=== PATIENT | female | born 1990 | race Caucasian/White ===

== ENCOUNTER 2019-03-18 17:23 | Outpatient (CLI) | payer BC ==
[2019-03-18] MEDS ORDERED: LACTATED RINGERS 1,000 ML IV SCH (18:30)
[2019-03-18 18:47] VITALS: BP 122/80; PULSE 107; RESP 18; TEMP 98.5
--- NOTE | 2019-04-05 16:45 | P.MSEPDOC ---
Presenting Problems - Arrival Data Date of Arrival on Unit: 03/18/19 Time of Arrival on Unit: 17:10 Mode of Transport: Ambulatory - Complaint OB-Reason for Admission/Chief Complaint: Decreased Movement Medical History - Information : 1 Para: 0 Term: 0 : 0 Abortions: Spontaneous or Elective: 0 Number of Living Children: 0 - Gestational Age Gestational Age by FER (wks/days): 32 Weeks and 1 Days Review of Systems - Review of Systems Constitutional: No problems Breast: No problems ENT: No problems Cardiovascular: No problems Respiratory: No problems Gastrointestinal: No problems Genitourinary: No problems Musculoskeletal: No problems Neurological: No problems Skin: No problems Vital Signs - Temperature Temperature: 98.5 F Temperature Source: Oral - Pulse Right Brachial Pulse Rate: 107 Pulse Assessment Method: Automatic Cuff - Respirations Respiratory Rate: 18 Oxygen Delivery Method: Room Air O2 Sat by Pulse Oximetry: 97 - Blood Pressure Right Arm Blood Pressure: 122/80 Blood Pressure Mean: 94 Blood Pressure Source: Automatic Cuff Medical Screen Scoring (Pre) - Cervical Exam Dilation: 0 cm = 0 Effacement: Exam Deferred Membranes: Intact - Uterine Contractions Frequency: < 36 weeks = 6 Duration: N/A Intensity: N/A - Maternal Vital Signs Maternal Temperature: N/A Maternal Blood Pressure: N/A Signs of Preeclampsia: N/A Maternal Respirations: N/A - Maternal Trauma Maternal Trauma: N/A - Assessment - Baby A Baseline FHR: 145 Heart Rate - NICHD Category: Category I (Normal) = 0 NST: Reactive Position: N/A Station: N/A - Total Score - Baby A Total Score - Baby A: 6 - Level of Risk - Baby A Level of Risk - Baby A: Medium (6-9) - Pain Assessment Pain Location and Character: Lower, Sacrum Pain Scale Used: Numeric (1 - 10) Pain Intensity: 2 Pain Description: *Acute Pain Frequency: Rarely Pain Behavior: Vocalization Pain Aggravating Factors: Position Non-Pharmacological Interventions: Darkened Room, Position/Reposition Physician Notification (Pre) - Physician Notified Physician Notified Date: 03/18/19 Physician Notified Time: 18:25 Physician/Practitioner Notifed:: chas Spoke With: chas New Order Received: Yes - Notification Comment Comment: start iv Medical Screen Scoring (Post) - Cervical Exam Dilation: 0 cm = 0 - Uterine Contractions Frequency: > 5 minutes apart = 1 Duration: > 40 seconds = 2 - Maternal Vital Signs Maternal Temperature: N/A Maternal Blood Pressure: N/A Signs of Preeclampsia: N/A Maternal Respirations: N/A - Pain Assessment Pain Intensity: 0 Pain Behavior: None Exhibited - Assessment - Baby A Heart Rate - NICHD Category: Category I (Normal) = 0 NST: Reactive - Total Score Total Score - Baby A: 3 - Post Treatment Level of Risk Post Treatment Level of Risk - Baby A: Low (0-5) Physician Notification (Post) - Physician Notified Physician Notified Date: 03/18/19 Physician Notified Time: 19:47 Physician/Practitioner Notified:: Chas New Order Received: Yes (discharge home) Disposition - Disposition OB Disposition: Discharge to home, Written follow up instructions reviewed Discharge Date: 03/18/19 Discharge Time: 20:05 I agree with the RN Medical Screening Exam: Yes Risk & Benefit of care provided described in d/c instruction: Yes Diagnosis: DECREASED MOVEMENTS, THIRD TRIMESTER, FETUS 1
== END 2019-03-18 20:05 | disposition home or self-care (01) ==
LOC: FBPOP 17:23
PROVIDERS: ATTEND Obstetrics & Gynecology
DX: O36.8130 Decreased fetal movements, third trimester, not applicable or unspecified (principal); Z3A.32 32 weeks gestation of pregnancy
CPT/HCPCS: 59025; 96360; 99214

== ENCOUNTER 2019-05-12 16:14 | Inpatient (IN) | payer BC, OTHER ==
[2019-05-16] MEDS ORDERED: OXYTOCIN 10 UNIT/ML 1 ML VIAL IM PRN (06:28)
[2019-05-16] MEDS ORDERED: TERBUTALINE 1 MG/ML VIAL SQ PRN (06:28)
[2019-05-16] MEDS ORDERED: METHYLERGONOVINE 0.2 MG/ML 1 ML AMP IM PRN (06:28)
[2019-05-16] MEDS ORDERED: CARBOPROST TROMETHAMINE 250 MCG/ML 1 ML AMP IM PRN (06:28)
[2019-05-16] MEDS ORDERED: LIDOCAINE 0.5% (PF) 5 MG/ML (50 ML SDV) SQ PRN (06:28)
[2019-05-16 06:37] LABS: Basophils % (A) 0 %; Eosinophils # (A) 0.1 k/uL (0-0.7); Eosinophils % (A) 1 %; HCT 41.5 % (34.0-46.0); HGB 13.3 gm/dL (11.4-16.0); Lymphocytes # (A) 1.9 k/uL (1.0-4.8); Lymphocytes % (A) 15 %; MCH 29.2 pg (25.0-35.0); MCHC 31.9 g/dL (31.0-37.0); MCV 91.4 fL (80.0-100.0); Mean Platelet Volume 7.9; Monocytes # (A) 0.5 k/uL (0-1.0); Monocytes % (A) 4 %; Neutrophils # (A) 9.9 k/uL (1.3-7.7); Neutrophils % (A) 78 %; Platelet Count 371 k/uL (150-450); RBC 4.54 m/uL (3.80-5.40); RDW 13.7 % (11.5-15.5); WBC 12.7 k/uL (3.8-10.6)
[2019-05-16 06:38] VITALS: BMI 38.1
[2019-05-16] MEDS: LACTATED RINGERS 1,000 ML IV SCH ×3 (06:40→14:06)
[2019-05-16] MEDS: OXYTOCIN 30 UNITS/500 ML NS 30 UNIT in SALINE 1 500ML.BAG IV SCH (07:02)
--- NOTE | 2019-05-16 08:35 | P.HPOB ---
History of Present Illness H&P Date: 05/16/19 Chief Complaint: IUP @ 40 4/7 weeks, post dates This is a 28 at 40 4/7 weeks EDC 05/12 based on LMP= first trimester us. she presents for post dates induction of labor. she denies CTX,LOF,VB, notes good FM she has been receiving routine care since the first trimester. care has been essentially uncomplicated, she did fail her 1 hour gluco la but passed her 3 hr. US doen this week revelaing LGA 9-7 . on pre labs she had a blood type of B pos, Rubella immune, RPR NR, HBSaG neg, HIV neg, GBS neg 04/10. Review of Systems Constitutional: Denies chills, Denies fatigue, Denies fever Cardiovascular: Reports leg edema Respiratory: Denies cough, Denies dyspnea Gastrointestinal: Denies constipation, Denies diarrhea, Denies nausea, Denies vomiting Genitourinary: Reports Past Medical History Past Medical History: No Reported History History of Any Multi-Drug Resistant Organisms: None Reported Past Surgical History: No Surgical Hx Reported Past Anesthesia/Blood Transfusion Reactions: No Reported Reaction Past Psychological History: No Psychological Hx Reported Smoking Status: Never smoker Past Alcohol Use History: None Reported Past Drug Use History: None Reported - Past Family History Father History Unknown: Yes Family Medical History: Chest Pain / Angina, Congestive Heart Failure (CHF) Medications and Allergies Home Medications Medication Instructions Recorded Confirmed Type Pnv 11/Iron Fum/Folic Acid/Om3 1 each PO DAILY 05/16/19 05/16/19 History [Virt-Dustin Dha Softgel] Allergies Allergy/AdvReac Type Severity Reaction Status Date / Time No Known Allergies Allergy Verified 05/16/19 06:26 Exam Osteopathic Statement: *. No significant issues noted on an osteopathic structural exam other than those noted in the History and Physical/Consult. Vital Signs Temp Pulse Resp BP Pulse Ox 05/16/19 06:25 96.6 F L 118 H 18 135/79 97 Intake and Output 05/15/19 05/16/19 05/16/19 22:59 06:59 14:59 Other: Weight 103.873 kg - OBG Physical Exam Abdomen: gravid and appropriate for GA Cervix: 50/-2 amniotomy preformed and clear fluid is obtained. Uterus: gravid Results Result Diagrams: 05/16/19 06:20 Abnormal Lab Results - Last 24 Hours (Table) 05/16/19 Range/Units 06:20 WBC 12.7 H (3.8-10.6) k/uL Neutrophils # 9.9 H (1.3-7.7) k/uL Assessment and Plan (1) Post-dates Current Visit: Yes Status: Acute Code(s): O48.0 - POST-TERM SNOMED Code(s): 45062193 (2) LGA (large for gestational age) fetus Current Visit: Yes Status: Acute Code(s): ECU6466 - SNOMED Code(s): 001390734 Plan: Patient was admitted for pitocin induction of labor, amniotomy is preformed. Pt does desire epidural, and once uncomfortable anesthesia will be notified. discussed LGA and possible labor dystocia, she states understanding and all questions answered.
[2019-05-16] MEDS ORDERED: ROPIVACAINE 100 MG, fentaNYL (PF) 200 MCG in SODIUM CHLORIDE 0.9% 76 ML EPIDURAL ONE (11:51)
[2019-05-16] MEDS ORDERED: CITRIC ACID-SODIUM CITRATE 15 ML CUP PO ONE (17:41)
[2019-05-16] MEDS ORDERED: DEXAMETHASONE SOD PHOS (MDV) 100 MG/10 ML VIAL ONE (17:57)
[2019-05-16] MEDS ORDERED: ceFAZolin 1,000 MG VIAL ONE (17:57)
[2019-05-16] MEDS ORDERED: METHYLERGONOVINE 0.2 MG/ML 1 ML AMP ONE (17:57)
[2019-05-16] MEDS ORDERED: ONDANSETRON 4 MG/2 ML VIAL ONE (17:57)
[2019-05-16] MEDS ORDERED: diphenhydrAMINE 50 MG/ML 1 ML VIAL ONE (17:57)
[2019-05-16] MEDS ORDERED: MORPHINE SULFATE (PF) 0.3 MG/0.3 ML SYR ONE (17:57)
[2019-05-16] MEDS ORDERED: OXYTOCIN 10 UNIT/ML 1 ML VIAL ONE (17:57)
[2019-05-16] MEDS ORDERED: ONDANSETRON 4 MG/2 ML VIAL IVP PRN ×2 (18:25→18:59)
[2019-05-16] MEDS ORDERED: MORPHINE SULFATE 2 MG/ML SYRINGE IVP PRN (18:25)
[2019-05-16] MEDS ORDERED: NALOXONE 0.4 MG/ML 1 ML VIAL IV PRN ×2 (18:25→18:59)
[2019-05-16] MEDS ORDERED: diphenhydrAMINE 50 MG/ML 1 ML VIAL IVP PRN ×3 (18:25→18:59)
--- NOTE | 2019-05-16 18:42 | P.OP ---
Date of Procedure: 05/16/19 Preoperative Diagnosis: IUP at 40 and 4/sevenths weeks, arrest of first stage of labor, suspected LGA Postoperative Diagnosis: Same Procedure(s) Performed: Primary low transverse section Anesthesia: epidural (With Duramorph) Surgeon: Hattie Rivera Hand Spinner #1: Howard Hargrove Estimated Blood Loss (ml): 600 IV fluids (ml): 500 Urine output (ml): 500 Pathology: none sent Condition: stable Disposition: observation Indications for Procedure: Arrest of first stage of labor. This was admitted at 40-4/7 weeks for induction of labor secondary to postdates. Patient was started on Pitocin for augmentation of labor. Patient made very minimal progress throughout the day with known suspected LGA fetus, 97 on ultrasound this week decision was made for primary low transverse section secondary to arrest of first stage of labor. Surgery was reviewed QUESTIONS were answered and patient wished to proceed. Operative Findings: Normal uterus tubes and ovaries were appreciated, female delivered at 1810, weight of 8 lbs. 5 oz. with Apgars of 9 and 10 at one and 5 minutes respectively. Description of Procedure: The patient was prepped and draped in the usual fashion after epidural anesthesia was found be adequate. A Pfannenstiel incision was made and extended of the abdominal cavity without difficulty. The bladder peritoneum was elevated and incised and reflected distally. A 2 cm incision was made in the transverse plane of the lower uterine segment to enter the uterus at which time clear fluid was noted. The incision was extended in both directions using the bandage scissors. The head was encountered within the field and delivered up and through the incision where the nose and mouth were thoroughly suctioned. Remainder of the was delivered onto the surgical field where the cord was doubly clamped, cut, and the infant was passed for resuscitative measures with weight and Apgars as noted above. A segment of cord was then doubly clamped, cut, and set aside should cord gases become necessary. The placenta was delivered manually, intact, and was grossly normal with a grossly normal three- vessel cord. The uterus was exteriorized and the interior cavity of the uterus swept of any remaining placental and membranous fragments with a laparotomy sponge. The margins of the incision were grasped with Allis clamps and the incision closed in 2 layers. First layer was a running locking layer of 0 Vicryl from margin to margin followed by a second layer of imbricating 0 Vicryl from margin to margin. Any small points of bleeding were then made hemostatic with the Bovie. Once hemostasis was achieved, the posterior cul-de-sac was suctioned with a guard and the uterine and ovarian findings are as noted above. The uterus was replaced within the abdominal cavity and the gutters swept of any remaining blood fluid or clot. The incision was again reexamined and hemostasis was noted to be excellent. Any small point of bleeding were made hemostatic with the Bovie. Once hemostasis was achieved the parietal peritoneum was loosely reapproximated. The layer of muscles were examined and made hemostatic with the Bovie. Attention was then turned to the fascia which was closed with 2 running stitches of 0 Vicryl proceeding from the lateral margins to the midpoint. The subcutaneous tissues were irrigated, made hemostatic with the Bovie, and reapproximated with a running stitch of 30 Vicryl. The skin was reapproximated with 4-0 Vicryl. Estimated blood loss for the case was approximately 600 mL. All sponge instrument and needle counts are correct. There were no complications. The patient tolerated the procedure well and proceeded to the recovery room in stable condition. Both mother and are resting comfortably in recovery.
[2019-05-16] MEDS ORDERED: ACETAMINOPHEN IV (For NPO) 1,000 MG in EMPTY BAG 1 BAG IVPB ONE (18:59)
[2019-05-16] MEDS ORDERED: diphenhydrAMINE 50 MG CAP PO PRN (18:59)
[2019-05-16] MEDS ORDERED: ACETAMINOPHEN TAB 325 MG TAB PO PRN (18:59)
[2019-05-16] MEDS ORDERED: METOCLOPRAMIDE 5 MG/ML 2 ML VIAL IVP PRN (18:59)
[2019-05-16] MEDS ORDERED: SIMETHICONE 80 MG CHEWABLE PO PRN (18:59)
[2019-05-16] MEDS ORDERED: diphenhydrAMINE 25 MG CAP PO PRN (18:59)
[2019-05-16] MEDS ORDERED: ZOLPIDEM 5 MG TAB PO PRN (18:59)
[2019-05-16] MEDS ORDERED: OXYTOCIN 20 UNITS/1000 ML NS 1,000 ML IV SCH (19:00)
[2019-05-16] MEDS ORDERED: IBUPROFEN IV 800 MG in SODIUM CHLORIDE 0.9% 250 ML IV ONE (19:01)
[2019-05-17] MEDS: SENNOSIDES-DOCUSATE SODIUM 1 EACH TAB PO SCH ×3 (00:20→21:17)
[2019-05-17 08:00] LABS: Basophils % (A) 0 %; Eosinophils % (A) 0 %; HCT 33.8 % (34.0-46.0); HGB 10.9 gm/dL (11.4-16.0); Lymphocytes # (A) 1.8 k/uL (1.0-4.8); Lymphocytes % (A) 11 %; MCH 29.7 pg (25.0-35.0); MCHC 32.2 g/dL (31.0-37.0); MCV 92.3 fL (80.0-100.0); Mean Platelet Volume 7.8; Monocytes # (A) 0.8 k/uL (0-1.0); Monocytes % (A) 5 %; Neutrophils # (A) 13.4 k/uL (1.3-7.7); Neutrophils % (A) 82 %; Platelet Count 291 k/uL (150-450); RBC 3.66 m/uL (3.80-5.40); RDW 13.8 % (11.5-15.5); WBC 16.3 k/uL (3.8-10.6)
[2019-05-17] MEDS: HYDROcodone/APAP 5-325MG 1 EACH TAB PO PRN ×2 (08:18→16:33)
--- NOTE | 2019-05-17 08:59 | P.PNOBGPC ---
Subjective - Subjective Principal diagnosis: POD 1 LTCS arrest of 1st stage of labor Interval history: This is a pleasant 28-year-old 1 now para 1 status post primary C- section for arrest of first stage of labor and suspected LGA. Patient did well overnight. She is ambulating and voiding without difficulty this morning. Her pain is controlled with oral [place]. She notes moderate lochia. She is breast- feeding without difficulty per patient. She is tolerating clear liquids without nausea or vomiting. Patient reports: Reports voiding normally, Reports pain well controlled, Reports ambulating normally : doing well Objective - Vital Signs Latest vital signs: Vital Signs Temp Pulse Resp BP Pulse Ox 05/17/19 05:00 18 96 05/17/19 04:00 98.1 F 88 16 108/68 96 05/17/19 03:00 16 98 05/17/19 01:00 18 98 05/17/19 00:00 98.1 F 83 16 122/68 98 05/16/19 23:25 98 05/16/19 23:00 98.1 F 83 16 122/68 98 05/16/19 21:25 16 98 05/16/19 20:51 97.9 F 90 18 119/70 98 05/16/19 20:21 83 16 116/67 98 05/16/19 19:51 95 16 134/60 05/16/19 19:36 93 20 127/82 93 L 05/16/19 19:25 18 98 05/16/19 19:21 95 16 130/73 98 05/16/19 19:06 95 16 131/63 98 05/16/19 18:45 97 F L 100 18 110/68 99 Intake and Output 05/16/19 05/17/19 05/17/19 22:59 06:59 14:59 Output Total 650 1200 Balance -650 -1200 Output: Urine 650 1200 Uretheral (Pack) 500 Other: # Voids 1 - Exam Extremities: Present: normal Abdomen: Present: normal appearance, soft Incision: Present: intact Uterus: Present: normal, firm - Labs Labs: Abnormal Lab Results - Last 24 Hours (Table) 05/17/19 Range/Units 07:12 WBC 16.3 H (3.8-10.6) k/uL RBC 3.66 L (3.80-5.40) m/uL Hgb 10.9 L (11.4-16.0) gm/dL Hct 33.8 L (34.0-46.0) % Neutrophils # 13.4 H (1.3-7.7) k/uL Assessment and Plan (1) Post-dates Current Visit: Yes Status: Acute Code(s): O48.0 - POST-TERM SNOMED Code(s): 53334907 (2) LGA (large for gestational age) fetus Current Visit: Yes Status: Acute Code(s): LML9534 - SNOMED Code(s): 585898266 (3) S/P section Current Visit: Yes Status: Acute Code(s): Z98.891 - HISTORY OF UTERINE SCAR FROM PREVIOUS SURGERY SNOMED Code(s): 911686954 Plan: Patient is doing well postoperatively. We'll continue routine postoperative care. Plan to advance diet at lunchtime. Encouraged increased ambulation.
[2019-05-17] MEDS ORDERED: PRENATAL VIT-IRON-FOLIC ACID 1 EACH CAP PO SCH (09:00)
--- NOTE | 2019-05-17 09:55 | P.PN ---
Progress Note - Text Anesthesia POD 1649. Patient is status post section under epidural anesthesia with epidural preservative free morphine 2000 g. No pruritus, moderately good post-op analgesia, and no complications
[2019-05-17] MEDS: IBUPROFEN 600 MG TAB PO PRN ×2 (12:44→21:17)
[2019-05-17] MEDS: LACTATED RINGERS 1,000 ML IV SCH ×3 (19:44→19:45)
[2019-05-17] MEDS: OXYTOCIN 30 UNITS/500 ML NS 30 UNIT in SALINE 1 500ML.BAG IV SCH (19:45)
[2019-05-18] MEDS: HYDROcodone/APAP 5-325MG 1 EACH TAB PO PRN ×2 (07:41→14:47)
[2019-05-18] MEDS: SENNOSIDES-DOCUSATE SODIUM 1 EACH TAB PO SCH (07:41)
[2019-05-18 07:44] VITALS: BP 116/71; PULSE 89; RESP 16; TEMP 98.2
--- NOTE | 2019-05-18 11:04 | P.DS ---
Providers Date of admission: 05/16/19 06:10 Expected date of discharge: 05/18/19 Attending physician: Hattie Rivera Primary care physician: Stated None - Discharge Diagnosis(es) (1) S/P section Current Visit: Yes Status: Acute Hospital Course: The patient is a 28-year-old 1 para 0 admitted at 40-4/7 weeks by good dating parameters perches admitted for postdates induction of labor with a suspected macrosomic infant having measured at the 97th percentile by ultrasound. Her has been uncomplicated aside from those findings and group B strep status is negative. On labor and delivery, she had Pitocin started and underwent artificial rupture of membranes. She had an epidural catheter placed for analgesia later. She progressed to some extent but ultimately stalled in labor and was taken the operating room for primary low- transverse section. She was delivered of a viable 8 lbs. 5 oz. baby girl with Apgars of 9 at 1 minute and 10 at 5 minutes. Her postoperative course has been unremarkable vital signs or any stable and her temperature was afebrile throughout. She was deemed stable for discharge on postoperative day #2 was discharged home to follow-up in the office in 2 weeks for incision check and 6 weeks routinely. Discharge instructions included calling for any significantly increased bleeding or foul-smelling lochia, significantly increased fever or abdominal pain, perineal complaints, breast complaints, incisional complaints, or anything else that concerned her. She is additionally instructed to have nothing in the vagina for at least 6 weeks time to include intercourse and to abstain from any heavy lifting over the same period of time. She was last instructed to do no driving until off of all pain medications or 2 weeks' time, whichever came first. She understood her instructions and agrees to follow up as noted above. Discharge medications included a prescription for [place] 5/325 mg, 1-2 by mouth every 6 hours when necessary pain, #20 dispensed with no refills. She was alternately this with [id number] analgesic pain medications and to continue using vitamins as she has opted to breast- feed. Maternal blood type is B+ and rubella status is immune. Discharge hemoglobin and hematocrit were 10.9 and 33.8 respectively. Procedures: #1. Pitocin induction #2. Artificial rupture of membranes #3. Epidural analgesia #4. Primary low-transverse section Patient Condition at Discharge: Stable Plan - Discharge Summary New Discharge Prescriptions: No Action Pnv 11/Iron Fum/Folic Acid/Om3 [Virt-Dustin Dha Softgel] 1 each PO DAILY Discharge Medication List Pnv 11/Iron Fum/Folic Acid/Om3 [Virt-Dustin Dha Softgel] 1 each PO DAILY 05/16/19 [History] Follow up Appointment(s)/Referral(s): Hattie Rivera DO [Doctor of Osteopathic Medicine] - 2 Weeks Discharge Disposition: HOME SELF-CARE
[2019-05-18] MEDS: IBUPROFEN 600 MG TAB PO PRN (13:03)
== END 2019-05-18 15:25 | disposition home or self-care (01) | DRG 788 ==
LOC: 4FBP 05-16 06:10
PROVIDERS: ADMIT Obstetrics & Gynecology Obstetrics; ATTEND Obstetrics & Gynecology Obstetrics
PROC: 3E0R3NZ Introduction of Analgesics, Hypnotics, Sedatives into Spinal Canal, Percutaneous Approach (ICD-10-PCS; principal; 2019-05-16 18:00)
PROC: 10D00Z1 Extraction of Products of Conception, Low, Open Approach (ICD-10-PCS; principal; 2019-05-16 18:00)
PROC: 00HU33Z Insertion of Infusion Device into Spinal Canal, Percutaneous Approach (ICD-10-PCS; principal; 2019-05-16 18:00)
PROC: 10907ZC Drainage of Amniotic Fluid, Therapeutic from Products of Conception, Via Natural or Artificial Opening (ICD-10-PCS; principal; 2019-05-16 18:00)
PROC: 3E033VJ Introduction of Other Hormone into Peripheral Vein, Percutaneous Approach (ICD-10-PCS; principal; 2019-05-16 18:00)
DX: O48.0 Post-term pregnancy (principal); Z37.0 Single live birth; Z3A.40 40 weeks gestation of pregnancy; Z82.49 Family history of ischemic heart disease and other diseases of the circulatory system; O36.63X0 Maternal care for excessive fetal growth, third trimester, not applicable or unspecified; O62.1 Secondary uterine inertia
CPT/HCPCS: 85025; 86850; 86900; 86901

== ENCOUNTER 2020-11-06 17:03 | Outpatient (CLI) | payer BC, OTHER ==
[2020-11-06 17:23] LABS: Glucose,Whole Blood 96 mg/dL (75-99)
[2020-11-06 18:02] LABS: Appearance,Urine Clear (Clear); Bilirubin,Urine Negative (Negative); Blood,Urine Negative (Negative); Color,Urine Colorless; Glucose,Urine (UA) Negative (Negative); Ketones,Urine Negative (Negative); Leukocyte Esterase,Urine Negative (Negative); Nitrite,Urine Negative (Negative); Protein,Urine Negative (Negative); Specific Gravity,Urine 1.002 (1.001-1.035); Urobilinogen,Urine <2.0 mg/dL (<2.0)
[2020-11-06 18:24] VITALS: BP 122/75; PULSE 117; RESP 16; TEMP 98.1
--- NOTE | 2020-11-28 10:15 | P.MSEPDOC ---
Presenting Problems - Arrival Data Date of Arrival on Unit: 11/06/20 Time of Arrival on Unit: 17:03 Mode of Transport: Ambulatory - Complaint OB-Reason for Admission/Chief Complaint: Dizziness Comment: Pt complains of intermittent dizziness x 5 days. Medical History - Information : 2 Para: 1 Term: 1 : 0 Abortions: Spontaneous or Elective: 0 Number of Living Children: 1 - Gestational Age Gestational Age by FER (wks/days): 22 Weeks and 5 Days - History Complications: Prior Review of Systems - Review of Systems Constitutional: No problems Breast: No problems ENT: No problems Cardiovascular: No problems Respiratory: No problems Gastrointestinal: No problems Genitourinary: No problems Musculoskeletal: No problems Neurological: Dizziness Skin: No problems Comment: Intermittent dizziness. Pt denies at current time. Vital Signs - Temperature Temperature: 98.1 F Temperature Source: Oral - Pulse Pulse Oximetery Pulse Rate: 117 Pulse Assessment Method: Automatic Cuff - Respirations Respiratory Rate: 16 Oxygen Delivery Method: Room Air O2 Sat by Pulse Oximetry: 100 - Blood Pressure Right Arm Blood Pressure: 122/75 Blood Pressure Mean: 90 Blood Pressure Source: Automatic Cuff Medical Screen Scoring (Pre) - Cervical Exam Dilation: Exam Deferred Effacement: Exam Deferred - Uterine Contractions Frequency: N/A - Maternal Vital Signs Maternal Temperature: N/A Maternal Blood Pressure: N/A Signs of Preeclampsia: N/A Maternal Respirations: N/A - Maternal Trauma Maternal Trauma: N/A - Assessment - Baby A Baseline FHR: 155 Position: N/A Station: N/A - Total Score - Baby A Total Score - Baby A: 0 - Total Score - Baby B Total Score - Baby B: 0 - Total Score - Baby C Total Score - Baby C: 0 - Level of Risk - Baby A Level of Risk - Baby A: Low (0-5) - Level of Risk - Baby B Level of Risk - Baby B: Low (0-5) - Level of Risk - Baby C Level of Risk - Baby C: Low (0-5) Physician Notification (Pre) - Physician Notified Physician Notified Date: 11/06/20 Physician Notified Time: 18:10 New Order Received: Yes - Notification Comment Comment: Spoke with Dr. Alvarez. Advised of pt in triage of Dr. Avalos 02/19. with c/o dizziness x 5days and blurred vision yesterday which has resolved today. Discussed accucheck of 96, blood pressure readings, orthostatic blood pressures, . status and heart rate. Reviewed U/A results. Orders received to discharge pt home and follow up with Dr. Rivera Monday. Disposition - Disposition OB Disposition: Discharge to home, Written follow up instructions reviewed Discharge Date: 11/06/20 Discharge Time: 18:14 I agree with the RN Medical Screening Exam: Yes Physician's MSE Comment: I had neither seen nor examined the patient. Case reviewed; plan agreed upon as documented in EMR&OBIX.: Yes Diagnosis: RELATED CONDITIONS, UNSPECIFIED, SECOND TRIMESTER
== END 2020-11-06 18:14 | disposition home or self-care (01) ==
LOC: FBPOP 17:03
PROVIDERS: ATTEND Obstetrics & Gynecology
DX: O26.92 Pregnancy related conditions, unspecified, second trimester (principal); Z3A.22 22 weeks gestation of pregnancy
CPT/HCPCS: 81003; 99213

== ENCOUNTER 2021-01-08 14:32 | Outpatient (CLI) | payer BC, OTHER ==
[2021-01-08 16:20] VITALS: BP 122/76; PULSE 109; RESP 16; TEMP 97.6
--- NOTE | 2021-01-11 07:34 | P.MSEPDOC ---
Presenting Problems - Arrival Data Date of Arrival on Unit: 01/08/21 Time of Arrival on Unit: 15:50 Mode of Transport: Ambulatory - Complaint OB-Reason for Admission/Chief Complaint: Rule Out SROM Medical History - Information : 2 Para: 1 Term: 1 : 0 Abortions: Spontaneous or Elective: 0 Number of Living Children: 1 - Gestational Age Gestational Age by FER (wks/days): 31 Weeks and 5 Days - History Complications: Breech, Prior Review of Systems - Review of Systems Constitutional: No problems Breast: No problems ENT: No problems Cardiovascular: No problems Respiratory: No problems Gastrointestinal: No problems Genitourinary: No problems Musculoskeletal: No problems Neurological: No problems Skin: No problems Vital Signs - Temperature Temperature: 97.6 F Temperature Source: Temporal Artery Scan - Pulse Right Radial Pulse Rate: 109 Pulse Assessment Method: Automatic Cuff - Respirations Respiratory Rate: 16 Oxygen Delivery Method: Room Air O2 Sat by Pulse Oximetry: 98 - Blood Pressure Right Arm Blood Pressure: 122/76 Blood Pressure Mean: 91 Blood Pressure Source: Automatic Cuff Medical Screen Scoring (Pre) - Cervical Exam Dilation: Exam Deferred - Uterine Contractions Frequency: N/A Duration: N/A Intensity: N/A - Maternal Vital Signs Maternal Temperature: N/A Maternal Blood Pressure: N/A Signs of Preeclampsia: N/A, Visual Disturbance = 1 Maternal Respirations: N/A - Maternal Trauma Maternal Trauma: N/A - Assessment - Baby A Baseline FHR: 150 Heart Rate - NICHD Category: Category I (Normal) = 0 NST: Reactive Position: N/A Station: N/A - Total Score - Baby A Total Score - Baby A: 1 - Total Score - Baby B Total Score - Baby B: 1 - Total Score - Baby C Total Score - Baby C: 1 - Level of Risk - Baby A Level of Risk - Baby A: Low (0-5) - Level of Risk - Baby B Level of Risk - Baby B: Low (0-5) - Level of Risk - Baby C Level of Risk - Baby C: Low (0-5) Physician Notification (Pre) - Physician Notified Physician Notified Date: 01/08/21 Physician Notified Time: 16:00 New Order Received: Yes - Notification Comment Comment: discharge home and followup Disposition - Disposition OB Disposition: Physician follow up in office, Discharge to home Discharge Date: 01/08/21 Discharge Time: 16:10 I agree with the RN Medical Screening Exam: Yes Case reviewed; plan agreed upon as documented in EMR&OBIX.: Yes Comments: Patient was neither seen nor examined by me. Diagnosis: FALSE LABOR BEFORE 37 COMPLETED WEEKS OF GEST, THIRD TRI
== END 2021-01-08 16:10 | disposition home or self-care (01) ==
LOC: FBPOP 14:32
PROVIDERS: ATTEND Obstetrics & Gynecology
DX: O41.93X0 Disorder of amniotic fluid and membranes, unspecified, third trimester, not applicable or unspecified (principal); Z3A.31 31 weeks gestation of pregnancy
CPT/HCPCS: 59025; 84112; 99213

== ENCOUNTER 2021-02-01 12:52 | Outpatient (CLI) | payer BC, OTHER ==
[2021-02-01 13:53] VITALS: BP 127/70; PULSE 100; RESP 16; TEMP 98.5
--- NOTE | 2021-02-19 14:11 | P.MSEPDOC ---
Presenting Problems - Arrival Data Date of Arrival on Unit: 02/01/21 Time of Arrival on Unit: 12:52 Mode of Transport: Ambulatory - Complaint OB-Reason for Admission/Chief Complaint: Rule Out PROM Medical History - Information : 2 Para: 1 Term: 1 : 0 Abortions: Spontaneous or Elective: 0 Number of Living Children: 1 - Gestational Age Gestational Age by FER (wks/days): 35 Weeks and 1 Days Review of Systems - Review of Systems Constitutional: No problems Breast: No problems ENT: No problems Cardiovascular: No problems Respiratory: No problems Gastrointestinal: No problems Genitourinary: No problems Musculoskeletal: No problems Neurological: No problems Skin: No problems Vital Signs - Temperature Temperature: 98.5 F Temperature Source: Oral - Pulse Right Pulse Rate: 100 Pulse Assessment Method: Automatic Cuff - Respirations Respiratory Rate: 16 Oxygen Delivery Method: Room Air O2 Sat by Pulse Oximetry: 97 - Blood Pressure Right Arm Blood Pressure: 127/70 Blood Pressure Mean: 89 Blood Pressure Source: Automatic Cuff Medical Screen Scoring (Pre) - Cervical Exam Dilation: 0 cm = 0 Membranes: Intact - Uterine Contractions Frequency: N/A Duration: N/A Intensity: N/A - Maternal Vital Signs Maternal Temperature: N/A Signs of Preeclampsia: N/A Maternal Respirations: N/A - Maternal Trauma Maternal Trauma: N/A - Assessment - Baby A Baseline FHR: 150 Heart Rate - NICHD Category: Category I (Normal) = 0 NST: Reactive Position: N/A - Total Score - Baby A Total Score - Baby A: 0 - Total Score - Baby B Total Score - Baby B: 0 - Total Score - Baby C Total Score - Baby C: 0 - Level of Risk - Baby A Level of Risk - Baby A: Low (0-5) - Level of Risk - Baby B Level of Risk - Baby B: Low (0-5) - Level of Risk - Baby C Level of Risk - Baby C: Low (0-5) Physician Notification (Pre) - Physician Notified Physician Notified Date: 02/01/21 Physician Notified Time: 13:50 New Order Received: Yes (discharge home to keep appt as scheduled) Disposition - Disposition OB Disposition: Discharge to home Discharge Date: 02/01/21 Discharge Time: 13:53 I agree with the RN Medical Screening Exam: Yes Physician's MSE Comment: Patient was not seen or examined by myself Case reviewed; plan agreed upon as documented in EMR&OBIX.: Yes Diagnosis: FALSE LABOR BEFORE 37 COMPLETED WEEKS OF GEST, THIRD TRI
== END 2021-02-01 13:50 | disposition home or self-care (01) ==
LOC: FBPOP 12:52
PROVIDERS: ATTEND Obstetrics & Gynecology Obstetrics
DX: O47.03 False labor before 37 completed weeks of gestation, third trimester (principal); Z3A.35 35 weeks gestation of pregnancy
CPT/HCPCS: 59025; 84112; 99213

== ENCOUNTER → 2021-02-18 | Outpatient (CLI) | payer BC, OTHER ==
[2021-02-18 15:02] VITALS: BP 125/73; PULSE 114; RESP 16; TEMP 97.5
--- NOTE | 2021-02-19 14:16 | P.MSEPDOC ---
Presenting Problems - Arrival Data Date of Arrival on Unit: 02/18/21 Time of Arrival on Unit: 13:43 Mode of Transport: Ambulatory - Complaint OB-Reason for Admission/Chief Complaint: Rule Out PROM Medical History - Information : 2 Para: 1 Term: 1 : 0 Abortions: Spontaneous or Elective: 0 Number of Living Children: 0 - Gestational Age Gestational Age by FER (wks/days): 37 Weeks and 4 Days - History Complications: Prior Comment: bilobed placenta Review of Systems - Review of Systems Constitutional: No problems Breast: No problems ENT: No problems Cardiovascular: No problems Respiratory: No problems Gastrointestinal: No problems Genitourinary: No problems Musculoskeletal: No problems Neurological: No problems Skin: No problems Vital Signs - Temperature Temperature: 97.5 F Temperature Source: Temporal Artery Scan - Pulse Pulse Oximetery Pulse Rate: 114 Pulse Assessment Method: Pulse Oximetry - Respirations Respiratory Rate: 16 Oxygen Delivery Method: Room Air O2 Sat by Pulse Oximetry: 97 - Blood Pressure Right Arm Blood Pressure: 125/73 Blood Pressure Mean: 90 Blood Pressure Source: Automatic Cuff Medical Screen Scoring (Pre) - Cervical Exam Dilation: Exam Deferred Effacement: Exam Deferred - Uterine Contractions Frequency: N/A Duration: N/A Intensity: N/A - Maternal Vital Signs Maternal Temperature: N/A Signs of Preeclampsia: N/A Maternal Respirations: N/A - Maternal Trauma Maternal Trauma: N/A - Assessment - Baby A Baseline FHR: 155 Heart Rate - NICHD Category: Category I (Normal) = 0 NST: Reactive Position: N/A Station: N/A - Total Score - Baby A Total Score - Baby A: 0 - Total Score - Baby B Total Score - Baby B: 0 - Total Score - Baby C Total Score - Baby C: 0 - Level of Risk - Baby A Level of Risk - Baby A: Low (0-5) - Level of Risk - Baby B Level of Risk - Baby B: Low (0-5) - Level of Risk - Baby C Level of Risk - Baby C: Low (0-5) Physician Notification (Pre) - Physician Notified Physician Notified Date: 02/18/21 Physician Notified Time: 14:25 New Order Received: No Disposition - Disposition OB Disposition: Physician follow up in office, Discharge to home Discharge Date: 02/18/21 Discharge Time: 14:48 I agree with the RN Medical Screening Exam: Yes Physician's MSE Comment: Patient was not seen or examined by myself Case reviewed; plan agreed upon as documented in EMR&OBIX.: Yes Diagnosis: RELATED CONDITIONS, UNSPECIFIED, THIRD TRIMESTER
== END ==
LOC: FBPOP 13:43
PROVIDERS: ATTEND Obstetrics & Gynecology Obstetrics
DX: O26.93 Pregnancy related conditions, unspecified, third trimester (principal); Z3A.37 37 weeks gestation of pregnancy
CPT/HCPCS: 59025; 99213

== ENCOUNTER 2021-03-01 06:08 | Inpatient (IN) | payer BC, OTHER ==
[2021-03-01] MEDS ORDERED: CITRIC ACID-SODIUM CITRATE 15 ML CUP PO ONE (06:18)
[2021-03-01] MEDS ORDERED: LACTATED RINGERS 1,000 ML IV ONE (06:18)
[2021-03-01] MEDS: LACTATED RINGERS 1,000 ML IV SCH ×2 (06:40→11:23)
[2021-03-01 06:43] LABS: Basophils % (A) 0 %; Eosinophils # (A) 0.1 k/uL (0-0.7); Eosinophils % (A) 1 %; HCT 36.6 % (34.0-46.0); HGB 12.2 gm/dL (11.4-16.0); Lymphocytes # (A) 1.9 k/uL (1.0-4.8); Lymphocytes % (A) 18 %; MCH 28.7 pg (25.0-35.0); MCHC 33.2 g/dL (31.0-37.0); MCV 86.4 fL (80.0-100.0); Mean Platelet Volume 8.3; Monocytes # (A) 0.5 k/uL (0-1.0); Monocytes % (A) 5 %; Neutrophils # (A) 7.8 k/uL (1.3-7.7); Neutrophils % (A) 74 %; Platelet Count 365 k/uL (150-450); RBC 4.24 m/uL (3.80-5.40); RDW 13.7 % (11.5-15.5); WBC 10.5 k/uL (3.8-10.6)
[2021-03-01] MEDS ORDERED: NALBUPHINE 10 MG/ML (1 ML AMP) ONE (08:11)
[2021-03-01] MEDS ORDERED: MORPHINE SULFATE (PF) 0.3 MG/0.3 ML SYR ONE (08:11)
[2021-03-01] MEDS ORDERED: PHENYLEPHRINE-0.9% NACL SYG 1,000 MCG/10 ML SYRINGE ONE (08:11)
[2021-03-01] MEDS ORDERED: ONDANSETRON 4 MG/2 ML VIAL ONE (08:11)
[2021-03-01] MEDS ORDERED: fentaNYL (PF) 50 MCG/ML 2 ML AMP ONE (08:11)
[2021-03-01] MEDS ORDERED: OXYTOCIN 10 UNIT/ML 1 ML VIAL ONE (08:11)
[2021-03-01] MEDS ORDERED: NALOXONE 0.4 MG/ML 1 ML VIAL IV PRN ×2 (09:16→13:10)
[2021-03-01] MEDS ORDERED: METOCLOPRAMIDE 5 MG/ML 2 ML VIAL IVP PRN (09:16)
[2021-03-01] MEDS ORDERED: SIMETHICONE 80 MG CHEWABLE PO PRN (09:16)
[2021-03-01] MEDS ORDERED: ZOLPIDEM 5 MG TAB PO PRN (09:16)
[2021-03-01] MEDS ORDERED: diphenhydrAMINE 50 MG/ML 1 ML VIAL IVP PRN ×2 (09:16)
[2021-03-01] MEDS ORDERED: diphenhydrAMINE 50 MG CAP PO PRN (09:16)
[2021-03-01] MEDS ORDERED: ONDANSETRON 4 MG/2 ML VIAL IVP PRN (09:16)
[2021-03-01] MEDS ORDERED: diphenhydrAMINE 25 MG CAP PO PRN (09:16)
[2021-03-01] MEDS: ACETAMINOPHEN IV (For NPO) 1,000 MG in EMPTY BAG 1 BAG IVPB SCH ×2 (09:20→16:57)
--- NOTE | 2021-03-01 09:20 | P.HPOB ---
History of Present Illness H&P Date: 03/01/21 Chief Complaint: IUP at 39 and 1/sevenths weeks, history of 1 desires repeat This is a 30-year-old 001 at 39 and one sevenths weeks that presents to labor and delivery for scheduled repeat section. Patient has a history of a prior and desires repeat. Patient has been receiving routine care which was complicated by a known bilobed placenta. Patient does have a history of anxiety. Patient notes good movement denies loss of fluid or vaginal bleeding. On bloodwork this patient has a blood type of B+, rubella status immune, hepatitis B surface antigen negative, GBS negative. RPR was noted to be nonreactive. Review of Systems Constitutional: Reports fatigue, Denies chills, Denies fever Ears, nose, mouth and throat: Denies headache Cardiovascular: Reports leg edema Respiratory: Denies dyspnea Gastrointestinal: Denies constipation, Denies diarrhea, Denies nausea, Denies vomiting Genitourinary: Reports Past Medical History Past Medical History: No Reported History History of Any Multi-Drug Resistant Organisms: None Reported Past Surgical History: Section Past Anesthesia/Blood Transfusion Reactions: Postoperative Nausea & Vomiting (PONV) Past Psychological History: No Psychological Hx Reported Additional Psychological History / Comment(s): states previous hx of anxiety Smoking Status: Former smoker Past Alcohol Use History: None Reported Additional Past Alcohol Use History / Comment(s): quit smoking 07/2018 Past Drug Use History: None Reported - Past Family History Father History Unknown: Yes Family Medical History: Chest Pain / Angina, Congestive Heart Failure (CHF) Medications and Allergies Home Medications Medication Instructions Recorded Confirmed Type Pnv 11/Iron Fum/Folic Acid/Om3 1 each PO DAILY 05/16/19 03/01/21 History [Virt-Dustin Dha Softgel] Acetaminophen [Tylenol Extra 500 mg PO Q6H PRN 02/18/21 03/01/21 History Strength] Allergies Allergy/AdvReac Type Severity Reaction Status Date / Time No Known Allergies Allergy Verified 03/01/21 06:18 Exam Osteopathic Statement: *. No significant issues noted on an osteopathic structural exam other than those noted in the History and Physical/Consult. 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 heart tones returned be category 1 and she is not patricia. Results Result Diagrams: 03/01/21 06:30 Abnormal Lab Results - Last 24 Hours (Table) 03/01/21 Range/Units 06:30 Neutrophils # 7.8 H (1.3-7.7) k/uL Assessment and Plan (1) Term Current Visit: Yes Status: Acute Code(s): Z34.90 - ENCNTR FOR SUPRVSN OF NORMAL , UNSP, UNSP TRIMESTER SNOMED Code(s): 74611017 (2) H/O section Current Visit: Yes Status: Acute Code(s): Z98.891 - HISTORY OF UTERINE SCAR FROM PREVIOUS SURGERY SNOMED Code(s): 368874777 Plan: 30-year-old that presents for scheduled repeat section. C- section is discussed with patient in detail, questions are answered. Risser reviewed including not limited to infection, bleeding, damage to bladder bowel or injury. Patient states understanding and wishes to proceed. Patient was then taken back to the operating suite.
[2021-03-01] MEDS ORDERED: OXYTOCIN 30 UNITS/500 ML NS 30 UNIT in SALINE 1 500ML.BAG IV SCH (09:30)
[2021-03-01] MEDS ORDERED: CELLULOSE,OXIDIZED 1 EACH EACH MISCELLANE ONE (09:31)
--- NOTE | 2021-03-01 09:31 | P.OP ---
Date of Procedure: 03/01/21 Preoperative Diagnosis: IUP at 39 and 1/sevenths weeks, history of 1 desires repeat Postoperative Diagnosis: Same plus significant anterior wall adhesions Procedure(s) Performed: Repeat section Anesthesia: spinal Surgeon: Hattie Rivera Phlebotomy Director #1: Reji Alvarez Estimated Blood Loss (ml): 450 IV fluids (ml): 1,000 Urine output (ml): 300 Pathology: other (Placenta) Condition: stable Disposition: observation Indications for Procedure: 30-year-old with history of 1 desires repeat. Operative Findings: Viable female delivered at 837, weight of 8 lbs. 14 oz. with Apgars of 8 and 9 at one and 5 minutes respectively. Significant anterior wall adhesions were noted therefore the uterus was unable to be delivered from the abdomen. Description of Procedure: Patient was taken back to the operating suite where spinal anesthesia was found be adequate by the anesthesia department. She was then prepped and draped in normal sterile fashion in the dorsal supine position. A Pfannenstiel skin incision was made with the scalpel and carried through the underlying layer fascia. Fascia was then incised in the midline and the incision was extended laterally. The superior aspect of the fascial incision was then grasped with Shruti clamps, elevated and underlying rectus muscle was dissected off sharply. There was a notable rectus diastases. Attention was then turned the inferior aspect of the fascial incision which was then grasped shruti clamps, elevated and underlying rectus muscles dissected off sharply. The peritoneum was identified and entered significant anterior wall adhesions were noted in uterine serosa was attached to the anterior, wall. The bladder blade was then inserted into the pelvis. The vesicouterine peritoneum was identified and the bladder flap was created. Clear yellow urine was noted in the Pack at this time. Hysterotomy incision was performed with the scalpel amniotomy is performed and clear fluid was obtained. The infant was noted in the vertex presentation. was delivered in the usual fashion the umbilical cord was doubly clamped and cut. The fundus handed off to awaiting RN. The placenta was then delivered manually intact with three-vessel cord being noted. No cord blood was needed. The uterus cleared of all clots and debris. The uterine incision was then closed with 0 Vicryl in a running locked fashion a second imbricating layer was performed. Hemostasis was appreciated. Secondary to the scarring the gutters were unable to be cleared of all clots and debris. Surgicel was placed over the hysterotomy incision along with Interceed over the anterior uterine wall that was dissected from the patient's anterior abdominal wall. Hemostasis was appreciated throughout once again the Pack was draining clear yellow urine throughout. The peritoneum was then loosely reapproximated the rectus muscles were inspected and found to be hemostatic. The fascia was then closed with 0 Vicryl in a running fashion from one lateral edge the other. The subcutaneous tissue was then irrigated and found to be hemostatic. The subcutaneous tissue was closed with 3-0 Vicryl in a running fashion. The skin was then closed with 4-0 Vicryl in a subcuticular fashion. Steri-Strips and sterile dressing was applied. All counts were noted be correct 2 at the end of the procedure. Patient and tolerated delivery well and are resting comfortably.
[2021-03-01] MEDS ORDERED: IBUPROFEN IV 800 MG in SODIUM CHLORIDE 0.9% 250 ML IV ONE (09:36)
[2021-03-01] MEDS ORDERED: MORPHINE SULFATE 2 MG/ML SYRINGE IVP PRN (13:10)
[2021-03-01] MEDS: IBUPROFEN 600 MG TAB PO SCH (16:57)
[2021-03-01] MEDS: ACETAMINOPHEN TAB 500 MG TAB PO SCH ×2 (16:58→20:35)
[2021-03-01] MEDS ORDERED: IBUPROFEN IV 800 MG in SODIUM CHLORIDE 0.9% 250 ML IV SCH (18:00)
[2021-03-01] MEDS: SENNOSIDES-DOCUSATE SODIUM 1 EACH TAB PO SCH (20:14)
[2021-03-02] MEDS: IBUPROFEN 600 MG TAB PO SCH ×6 (00:05→23:44)
[2021-03-02] MEDS: ACETAMINOPHEN TAB 500 MG TAB PO SCH ×4 (03:47→19:58)
[2021-03-02 06:56] LABS: Basophils % (A) 0 %; Eosinophils # (A) 0.1 k/uL (0-0.7); Eosinophils % (A) 1 %; HCT 33.3 % (34.0-46.0); HGB 11.2 gm/dL (11.4-16.0); Lymphocytes % (A) 18 %; MCH 29.3 pg (25.0-35.0); MCHC 33.5 g/dL (31.0-37.0); MCV 87.5 fL (80.0-100.0); Mean Platelet Volume 9.2; Monocytes # (A) 0.5 k/uL (0-1.0); Monocytes % (A) 5 %; Neutrophils # (A) 8.4 k/uL (1.3-7.7); Neutrophils % (A) 75 %; Platelet Count 296 k/uL (150-450); RBC 3.81 m/uL (3.80-5.40); RDW 13.8 % (11.5-15.5); WBC 11.2 k/uL (3.8-10.6)
--- NOTE | 2021-03-02 08:39 | P.PNOBGPC ---
Subjective - Subjective Principal diagnosis: POD 1 RCS Interval history: Patient is overall doing well. She is ambulating and voiding without difficulty. She is tolerating clear liquids without nausea or vomiting. She states her pain is moderately controlled. She is bottle feeding. Patient reports: Reports appetite normal, Reports voiding normally, Reports ambulating normally [place]: doing well Objective - Vital Signs Latest vital signs: Vital Signs Temp Pulse Resp BP Pulse Ox 03/02/21 03:52 97.9 F 78 16 108/67 99 03/01/21 23:59 98.3 F 82 16 104/66 97 03/01/21 20:00 97.6 F 99 16 116/66 99 03/01/21 18:00 16 03/01/21 16:10 16 03/01/21 16:00 98.0 F 79 16 123/73 97 03/01/21 14:10 16 96 03/01/21 13:10 18 96 03/01/21 11:25 90 18 113/57 03/01/21 10:55 74 18 105/64 96 03/01/21 10:25 98.4 F 72 18 104/56 95 03/01/21 10:04 81 18 115/71 96 03/01/21 09:45 73 18 111/70 03/01/21 09:30 76 16 109/70 03/01/21 09:15 97.8 F 89 18 112/70 96 Intake and Output 03/01/21 03/02/21 03/02/21 22:59 06:59 14:59 Output Total 2024 Balance -2024 Output: Urine 2024 Uretheral (Pack) 1375 Other: # Voids 1 2 - Exam Extremities: Present: normal, edema Abdomen: Present: normal appearance Incision: Present: normal, intact Uterus: Present: normal, firm - Labs Labs: Abnormal Lab Results - Last 24 Hours (Table) 03/02/21 Range/Units 06:44 WBC 11.2 H (3.8-10.6) k/uL Hgb 11.2 L (11.4-16.0) gm/dL Hct 33.3 L (34.0-46.0) % Neutrophils # 8.4 H (1.3-7.7) k/uL Assessment and Plan (1) Term Current Visit: Yes Status: Acute Code(s): Z34.90 - ENCNTR FOR SUPRVSN OF NORMAL , UNSP, UNSP TRIMESTER SNOMED Code(s): 86438508 (2) H/O section Current Visit: Yes Status: Acute Code(s): Z98.891 - HISTORY OF UTERINE SCAR FROM PREVIOUS SURGERY SNOMED Code(s): 797506323 (3) S/P section Current Visit: No Status: Acute Code(s): Z98.891 - HISTORY OF UTERINE SCAR FROM PREVIOUS SURGERY SNOMED Code(s): 701102913 Plan: Patient is doing well postoperatively. Encourage increased ambulation and advance diet to regular. Anticipate discharge home tomorrow
[2021-03-02] MEDS: SENNOSIDES-DOCUSATE SODIUM 1 EACH TAB PO SCH ×2 (08:42→19:58)
[2021-03-02] MEDS ORDERED: PRENATAL VIT-IRON-FOLIC ACID 1 EACH CAP PO SCH (09:00)
--- NOTE | 2021-03-02 12:01 | P.PN ---
Progress Note - Text Progress Note Date: 03/02/21 (0586) Anesthesia Postop day 1 Subjective: Status Post section with Duramorph. Patient seen and examined. Doing well without current complaint. VAS 8 out of 10currently tolerable. Nausea and vomiting yesterday. Now resolved.. Afebrile. Gross lower extremity strength intact. . Without apparent anesthetic complications. Objective: Vital signs reviewed Heart: Regular Rate Lungs: Good chest excursion Abdomen: Appears nondistended Assessment: Status post with Duramorph postop day 1 Plan: Continue current care with your medical management.
[2021-03-02] MEDS: LACTATED RINGERS 1,000 ML IV SCH ×2 (19:56)
[2021-03-03] MEDS: ACETAMINOPHEN TAB 500 MG TAB PO SCH ×3 (00:30→08:10)
[2021-03-03] MEDS: SENNOSIDES-DOCUSATE SODIUM 1 EACH TAB PO SCH (08:10)
--- NOTE | 2021-03-03 08:27 | P.DS ---
Providers Date of admission: 03/01/21 06:08 Expected date of discharge: 03/03/21 Attending physician: Hattie Rivera Primary care physician: Stated None - Discharge Diagnosis(es) (1) Term Current Visit: Yes Status: Acute (2) H/O section Current Visit: Yes Status: Acute (3) S/P section Current Visit: No Status: Acute Hospital Course: This is a 30-year-old she to [facility] that presented to labor and delivery on 03/01 for scheduled repeat section. Patient had been receiving routine care with myself which has been essentially uncomplicated, for full details of the patient please see the dictated history and physical. Patient a prior history of and desires repeat. Patient was admitted to labor and delivery and was performed without difficulty. Patient delivered a viable female at 837, weight of 8 lbs. 14 oz. with Apgars of 8 and 9 at one and 5 minutes respectively. Patient did have significant anterior wall adhesions to the uterus. The uterus was unable to be removed from the abdomen for closure of the hysterotomy incision. Findings were discussed with patient in detail. Patient's postoperative course has been essentially uneventful. On this postoperative day #2 she is ambulating and voiding without difficulty. She is tolerating a regular diet without nausea or vomiting. Her lochia is minimal. Her pain is moderately well controlled with oral pain medication. She does desire discharge home. Patient Condition at Discharge: Good Plan - Discharge Summary New Discharge Prescriptions: No Action Pnv 11/Iron Fum/Folic Acid/Om3 [Virt-Dustin Dha Softgel] 1 each PO DAILY Acetaminophen [Tylenol Extra Strength] 500 mg PO Q6H PRN PRN Reason: Pain Discharge Medication List Pnv 11/Iron Fum/Folic Acid/Om3 [Virt-Dustin Dha Softgel] 1 each PO DAILY 05/16/19 [History] Acetaminophen [Tylenol Extra Strength] 500 mg PO Q6H PRN 02/18/21 [History] Follow up Appointment(s)/Referral(s): Hattie Rivera DO [Doctor of Osteopathic Medicine] - 2 Weeks Patient Instructions/Handouts: (DC), (GEN) Discharge Disposition: HOME SELF-CARE
[2021-03-03 08:37] VITALS: BP 132/78; PULSE 95; RESP 16; TEMP 98.6
== END 2021-03-03 10:15 | disposition home or self-care (01) | DRG 788 ==
LOC: 4FBP 06:08
PROVIDERS: ADMIT Obstetrics & Gynecology Obstetrics; ATTEND Obstetrics & Gynecology Obstetrics
PROC: 10D00Z1 Extraction of Products of Conception, Low, Open Approach (ICD-10-PCS; principal; 2021-03-01 08:00)
DX: O34.211 Maternal care for low transverse scar from previous cesarean delivery (principal); O43.193 Other malformation of placenta, third trimester; Z37.0 Single live birth; Z3A.39 39 weeks gestation of pregnancy; Z82.49 Family history of ischemic heart disease and other diseases of the circulatory system; Z87.891 Personal history of nicotine dependence
CPT/HCPCS: 85025; 86850; 86900; 86901; 88307

== ENCOUNTER 2022-05-05 11:10 | Inpatient (IN) | payer MEDICAID, OTHER ==
--- NOTE | 2022-05-05 11:34 | ED ---
Psych HPI - General Chief Complaint: Psychiatric Symptoms Stated Complaint: EPS eval Time Seen by Provider: 05/05/22 11:25 Source: patient Mode of arrival: ambulatory - History of Present Illness Initial Comments: This is a pleasant 31-year-old female presents to the emergency room with depression, anxiety and auditory hallucinations. Patient states that she's had these symptoms in the past and was prescribed antidepressants in 2017. She states that she did see her primary care doctor last month and recommended community mental health. She states that her symptoms are getting worse and now she is hearing auditory hallucinations telling her that she is worthless. She denies any suicidal or homicidal ideations. She denies any drug use but does smoke 10 cigarettes, half a pack a day. Denies any alcohol use. She denies any chance of . No previous mental health hospitalizations. MD Complaint: feels depressed, other (Hearing voices) -: year(s) (2016) Associated Psychiatric Symptoms: depression, auditory hallucinations History of same: Yes Quality: getting worse Associated Symptoms: denies other symptoms Treatments Prior to Arrival: none - Related Data Home Medications Medication Instructions Recorded Confirmed ALPRAZolam [Xanax] 0.25 - 0.5 mg PO DAILY PRN 05/05/22 05/05/22 Escitalopram Oxalate [Lexapro] 10 mg PO DAILY 05/05/22 05/05/22 Allergies Allergy/AdvReac Type Severity Reaction Status Date / Time No Known Allergies Allergy Verified 05/05/22 12:05 Review of Systems ROS Statement: Those systems with pertinent positive or pertinent negative responses have been documented in the HPI. ROS Other: All systems not noted in ROS Statement are negative. Past Medical History Past Medical History: No Reported History History of Any Multi-Drug Resistant Organisms: None Reported Past Surgical History: Section Past Anesthesia/Blood Transfusion Reactions: No Reported Reaction Past Psychological History: Anxiety, Depression Smoking Status: Current every day smoker Past Alcohol Use History: None Reported Past Drug Use History: Marijuana - Past Family History Father History Unknown: Yes Family Medical History: Chest Pain / Angina, Congestive Heart Failure (CHF) General Exam Limitations: no limitations General appearance: alert, in no apparent distress Head exam: Present: atraumatic Eye exam: Present: normal appearance. Absent: scleral icterus, conjunctival injection ENT exam: Present: mucous membranes moist Neck exam: Present: full ROM. Absent: meningismus Respiratory exam: Present: normal lung sounds bilaterally. Absent: respiratory distress, accessory muscle use Cardiovascular Exam: Present: regular rate Extremities exam: Present: normal capillary refill Neurological exam: Present: alert, oriented X3, normal gait Expanded Patient oriented to: Present: person, place, time Eye Response: (4) open spontaneously Motor Response: (6) obeys commands Verbal Response: (5) oriented [place] Total: 15 Psychiatric exam: Present: depressed. Absent: agitated, flat affect, manic, homicidal ideation, suicidal ideation Skin exam: Present: warm, dry, normal color. Absent: cyanosis, diaphoretic, petechiae, pallor Course Vital Signs 05/05/22 05/05/22 11:15 16:41 Temperature 98.2 F Pulse Rate 99 92 Respiratory 22 18 Rate Blood Pressure 121/81 120/78 O2 Sat by Pulse 98 96 Oximetry Medical Decision Making - Medical Decision Making Well-appearing 31-year-old female presents to the emergency room with complaints of hearing voices, depression, anxiety and auditory hallucinations. Patient states has been ongoing for years. Patient states that she's had these symptoms in the past and was prescribed antidepressants in 2017. Denies any suicidal or homicidal ideations. BAT was 0, urine toxicology shows benzodiazepines. No evidence of urinary tract infection or . Patient is calm and cooperative. She is willing to sign herself in for inpatient therapy. - Lab Data Lab Results 05/05/22 05/05/22 05/05/22 Range/Units 11:47 11:47 11:47 Urine Color Yellow Urine Appearance Clear (Clear) Urine pH 5.5 (5.0-8.0) Ur Specific [place] 1.025 (1.001-1.035) Urine Protein Negative (Negative) Urine Glucose (UA) Negative (Negative) Urine Ketones Negative (Negative) Urine Blood Moderate H (Negative) Urine Nitrite Negative (Negative) Urine Bilirubin Negative (Negative) Urine Urobilinogen 2.0 (<2.0) mg/dL Ur Leukocyte Esterase Negative (Negative) Urine RBC 2 (0-5) /hpf Urine WBC <1 (0-5) /hpf Urine Mucus Rare H (None) /hpf Urine HCG, Qual Not Detected (Not Detectd) Urine Opiates Screen Not Detected (NotDetected) Ur Oxycodone Screen Not Detected (NotDetected) Urine Methadone Screen Not Detected (NotDetected) Ur Propoxyphene Screen Not Detected (NotDetected) Ur Barbiturates Screen Not Detected (NotDetected) U Tricyclic Antidepress Not Detected (NotDetected) Ur Phencyclidine Scrn Not Detected (NotDetected) Ur Amphetamines Screen Not Detected (NotDetected) U Methamphetamines Scrn Not Detected (NotDetected) U Benzodiazepines Scrn Detected H (NotDetected) Urine Cocaine Screen Not Detected (NotDetected) U Marijuana (THC) Screen Not Detected (NotDetected) Coronavirus (PCR) (Not Detectd) 05/05/22 Range/Units 14:25 Urine Color Urine Appearance (Clear) Urine pH (5.0-8.0) Ur Specific [place] (1.001-1.035) Urine Protein (Negative) Urine Glucose (UA) (Negative) Urine Ketones (Negative) Urine Blood (Negative) Urine Nitrite (Negative) Urine Bilirubin (Negative) Urine Urobilinogen (<2.0) mg/dL Ur Leukocyte Esterase (Negative) Urine RBC (0-5) /hpf Urine WBC (0-5) /hpf Urine Mucus (None) /hpf Urine HCG, Qual (Not Detectd) Urine Opiates Screen (NotDetected) Ur Oxycodone Screen (NotDetected) Urine Methadone Screen (NotDetected) Ur Propoxyphene Screen (NotDetected) Ur Barbiturates Screen (NotDetected) U Tricyclic Antidepress (NotDetected) Ur Phencyclidine Scrn (NotDetected) Ur Amphetamines Screen (NotDetected) U Methamphetamines Scrn (NotDetected) U Benzodiazepines Scrn (NotDetected) Urine Cocaine Screen (NotDetected) U Marijuana (THC) Screen (NotDetected) Coronavirus (PCR) Not Detected (Not Detectd) Disposition Clinical Impression: Adjustment reaction of adult life, Depression Disposition: ADMITTED IP TO THIS HOSP Condition: Good Decision Date: 05/05/22 Decision Time: 17:44
[2022-05-05 12:01] LABS: Appearance,Urine Clear (Clear); Bilirubin,Urine Negative (Negative); Blood,Urine Moderate (Negative); Color,Urine Yellow; Glucose,Urine (UA) Negative (Negative); Ketones,Urine Negative (Negative); Leukocyte Esterase,Urine Negative (Negative); Mucus,Urine Rare /hpf; Nitrite,Urine Negative (Negative); PH, Urine 5.5 (5.0-8.0); Protein,Urine Negative (Negative); RBC,Urine 2 /hpf (0-5); Specific Gravity,Urine 1.025 (1.001-1.035); WBC,Urine <1 /hpf (0-5)
[2022-05-05 12:40] LABS: Amphetamine Screen,Urine Not Detected (NotDetected); Barbiturate Screen,Urine Not Detected (NotDetected); Benzodiazepines Screen,Urine Detected (NotDetected); Cocaine Screen,Urine Not Detected (NotDetected); Methadone Screen, Urine Not Detected (NotDetected); Opiate Screen,Urine Not Detected (NotDetected); Oxycodone Screen, Urine Not Detected (NotDetected); Phencyclidine Screen,Urine Not Detected (NotDetected); Tricyclic Antidepressant,Urine Not Detected (NotDetected); Urn Cannabinoid Scrn Not Detected (NotDetected)
[2022-05-05] MEDS ORDERED: NICOTINE 14MG/24HR PATCH TRANSDERM STA (13:30)
[2022-05-05] MEDS ORDERED: ACETAMINOPHEN TAB 325 MG TAB PO PRN (16:09)
[2022-05-05] MEDS ORDERED: HALOPERIDOL LACTATE 5 MG/ML 1 ML VIAL IM PRN (16:09)
[2022-05-05] MEDS ORDERED: LORazepam 2 MG/ML INJ IM PRN (16:09)
[2022-05-05] MEDS ORDERED: MAGNESIUM HYDROXIDE 2,400 MG/10 ML CUP PO PRN (16:09)
[2022-05-05] MEDS ORDERED: MAG HYDROX/AL HYDROX/SIMETH 30 ML CUP PO PRN (16:09)
[2022-05-05] MEDS ORDERED: haloperidoL 5 MG TAB PO PRN (16:09)
[2022-05-05] MEDS ORDERED: OLANZapine 5 MG TAB PO SCH (21:00)
[2022-05-06] MEDS ORDERED: LORazepam 1 MG/0.5 ML VIAL IM PRN (06:03)
[2022-05-06] MEDS ORDERED: ESCITALOPRAM 10 MG TAB PO SCH (09:00)
[2022-05-06] MEDS: NICOTINE 14MG/24HR PATCH TRANSDERM SCH (09:03)
[2022-05-06 10:34] LABS: Basophils # (A) 0.1 k/uL (0-0.2); Basophils % (A) 1 %; Eosinophils # (A) 0.4 k/uL (0-0.7); Eosinophils % (A) 4 %; HCT 48.6 % (34.0-46.0); HGB 15.7 gm/dL (11.4-16.0); Lymphocytes # (A) 2.7 k/uL (1.0-4.8); Lymphocytes % (A) 32 %; MCH 31.2 pg (25.0-35.0); MCHC 32.3 g/dL (31.0-37.0); MCV 96.7 fL (80.0-100.0); Mean Platelet Volume 7.7; Monocytes # (A) 0.3 k/uL (0-1.0); Monocytes % (A) 3 %; Neutrophils # (A) 4.9 k/uL (1.3-7.7); Neutrophils % (A) 58 %; Platelet Count 356 k/uL (150-450); RBC 5.03 m/uL (3.80-5.40); RDW 12.4 % (11.5-15.5); WBC 8.5 k/uL (3.8-10.6)
[2022-05-06 10:41] LABS: ALT 11 U/L (4-34); AST 18 U/L (14-36); African American GFR (CKD) >90 (>60 ml/min/1.73 sqM); Albumin 4.3 g/dL (3.5-5.0); Alkaline Phosphatase 64 U/L (38-126); Anion Gap 5 mmol/L; Bilirubin, Delta 0.1 mg/dL (0.0-0.2); Bilirubin,Unconjugated 0.2 mg/dL (0.0-1.1); Blood Urea Nitrogen 10 mg/dL (7-17); Calcium 9.2 mg/dL (8.4-10.2); Carbon Dioxide 30 mmol/L (22-30); Chloride 104 mmol/L (98-107); Glucose 71 mg/dL (74-99); Non-African American GFR(CKD) 88 (>60 ml/min/1.73 sqM); Potassium 4.8 mmol/L (3.5-5.1); Sodium 139 mmol/L (137-145); Total Bilirubin 0.3 mg/dL (0.2-1.3); Total Protein 7.6 g/dL (6.3-8.2)
[2022-05-06] MEDS: ZIPRASIDONE 20 MG CAP PO SCH ×2 (11:50→20:05)
--- NOTE | 2022-05-06 13:00 | CT ---
EXAMINATION TYPE: CT brain wo con CT DLP: 1129 mGycm, Automated exposure control for dose reduction was used. DATE OF EXAM: 05/06/2022 12:44 PM COMPARISON: None. CLINICAL INDICATION:Female, 31 years old with history of acute psychosis. TECHNIQUE: Brain: Multiple axial CT images of the brain were obtained without IV contrast. FINDINGS: Brain: Extra-axial spaces: No abnormal extra-axial fluid collections. Ventricular system: Within normal limits. Incidental caval septum pellucidum et vergae. Cerebral parenchyma: No acute intraparenchymal hemorrhage or mass effect. The archer-white junction is well differentiated. Cerebellum: Unremarkable. Mass effect: No evidence of midline shift. Intracranial vasculature: unremarkable Soft tissues: Normal. Calvarium/osseous structures: No depressed skull fracture. Paranasal sinuses and mastoid air cells: Mild scattered paranasal sinus disease. Visualized orbits: Orbital contents are intact. IMPRESSION: No acute intracranial process.
--- NOTE | 2022-05-06 13:28 | P.HP ---
Psychiatric H&P - . H&P Date: 05/06/22 History & Physical: Allergies Allergy/AdvReac Type Severity Reaction Status Date / Time No Known Allergies Allergy Verified 05/05/22 12:05 Vital Signs Temp 97.8 F 05/06/22 07:00 Pulse 86 05/06/22 07:00 Resp 16 05/06/22 07:00 BP 102/61 05/06/22 07:00 Pulse Ox 99 05/06/22 07:00 FiO2 Intake & Output 05/05/22 05/06/22 05/06/22 18:59 06:59 18:59 Weight 72.575 kg Laboratory Last Values WBC 8.5 k/uL (3.8-10.6) 05/06/22 10:00 RBC 5.03 m/uL (3.80-5.40) 05/06/22 10:00 Hgb 15.7 gm/dL (11.4-16.0) 05/06/22 10:00 Hct 48.6 % (34.0-46.0) H 05/06/22 10:00 MCV 96.7 fL (80.0-100.0) 05/06/22 10:00 MCH 31.2 pg (25.0-35.0) 05/06/22 10:00 MCHC 32.3 g/dL (31.0-37.0) 05/06/22 10:00 RDW 12.4 % (11.5-15.5) 05/06/22 10:00 Plt Count 356 k/uL (150-450) 05/06/22 10:00 MPV 7.7 05/06/22 10:00 Neutrophils % 58 % 05/06/22 10:00 Lymphocytes % 32 % 05/06/22 10:00 Monocytes % 3 % 05/06/22 10:00 Eosinophils % 4 % 05/06/22 10:00 Basophils % 1 % 05/06/22 10:00 Neutrophils # 4.9 k/uL (1.3-7.7) 05/06/22 10:00 Lymphocytes # 2.7 k/uL (1.0-4.8) 05/06/22 10:00 Monocytes # 0.3 k/uL (0-1.0) 05/06/22 10:00 Eosinophils # 0.4 k/uL (0-0.7) 05/06/22 10:00 Basophils # 0.1 k/uL (0-0.2) 05/06/22 10:00 Urine Color Yellow 05/05/22 11:47 Urine Appearance Clear (Clear) 05/05/22 11:47 Urine pH 5.5 (5.0-8.0) 05/05/22 11:47 Ur Specific Basco 1.025 (1.001-1.035) 05/05/22 11:47 Urine Protein Negative (Negative) 05/05/22 11:47 Urine Glucose (UA) Negative (Negative) 05/05/22 11:47 Urine Ketones Negative (Negative) 05/05/22 11:47 Urine Blood Moderate (Negative) H 05/05/22 11:47 Urine Nitrite Negative (Negative) 05/05/22 11:47 Urine Bilirubin Negative (Negative) 05/05/22 11:47 Urine Urobilinogen 2.0 mg/dL (<2.0) 05/05/22 11:47 Ur Leukocyte Esterase Negative (Negative) 05/05/22 11:47 Urine RBC 2 /hpf (0-5) 05/05/22 11:47 Urine WBC <1 /hpf (0-5) 05/05/22 11:47 Urine Mucus Rare /hpf (None) H 05/05/22 11:47 Urine HCG, Qual Not Detected (Not Detectd) 05/05/22 11:47 Urine Opiates Screen Not Detected (NotDetected) 05/05/22 11:47 Ur Oxycodone Screen Not Detected (NotDetected) 05/05/22 11:47 Urine Methadone Screen Not Detected (NotDetected) 05/05/22 11:47 Ur Propoxyphene Screen Not Detected (NotDetected) 05/05/22 11:47 Ur Barbiturates Screen Not Detected (NotDetected) 05/05/22 11:47 U Tricyclic Antidepress Not Detected (NotDetected) 05/05/22 11:47 Ur Phencyclidine Scrn Not Detected (NotDetected) 05/05/22 11:47 Ur Amphetamines Screen Not Detected (NotDetected) 05/05/22 11:47 U Methamphetamines Scrn Not Detected (NotDetected) 05/05/22 11:47 U Benzodiazepines Scrn Detected (NotDetected) H 05/05/22 11:47 Urine Cocaine Screen Not Detected (NotDetected) 05/05/22 11:47 U Marijuana (THC) Screen Not Detected (NotDetected) 05/05/22 11:47 Coronavirus (PCR) Not Detected (Not Detectd) 05/05/22 14:25 05/06/22 10:41 IDENTIFYING DATA: Patient is a 31-year-old female, currently lives with her in a house, unemployed. HPI: Patient presented to the hospital yesterday complaining of depression and anxiety and auditory hallucinations. According to ER report, patient had stated that the voices are telling her that she is worthless and of the negative. She was denying any suicidal thoughts in the ER. Patient has been prescribed Xanax and Lexapro by her PCP. She is positive on her UDS for benzodiazepines. Patient claims that in 2016, she had a "psychotic break" after giving and started hearing voices and apparently was delusional. She states that "it never really cleared". She states that she was able to manage the symptoms better through health and diet changes. She claims that she was not on any psychiatric medications or do not get any other psychiatric help. She claims that in 2020 when she gave to her last child, she claims that the voices came back even stronger and she states that she is "a lot more worried now because I have 2 kids" and states that she has been feeling depressed anxious and hopeless. She states that the voices have been fairly negative in nature and also having causing her feel paranoid. She is not endorsing any delusions at this time. She states that her sleep is "on and off" appetite is been fair. She is denying any history of manic episodes. Patient denies any suicidal or homicidal ideations intent or plan. At this time patient denies any visual hallucinations. Patient denies any flight of ideas racing thoughts and increased in goal directed behavior. Patient admits to using cigarettes daily and also has been smoking THC cigarettes as well. PAST PSYCHIATRIC HISTORY: Patient states that she has a history of a "psychotic break" however no formal psychiatric diagnosis. Patient claims that she was on Lexapro and Xanax prescribed by her PCP. Patient denies any previous psychiatric hospitalizations. Patient denies any psychiatric outpatient follow- up. Patient denies any history of suicide attempts in the past. PMH: As per medicine H&P ALLERGIES: as per EMR CHEMICAL DEPENDENCY HISTORY: as per HPI FAMILY PSYCHIATRIC/SUBSTANCE USE HISTORY: Claims that her parents both abused substances. She states that she believes that her mother had some form of mental illness SOCIAL HISTORY: Patient was born and raised in [place] and claims that she was in foster care. She states that she completed high school and did some college. She states that she did several odd jobs in the past however is now unemployed. She used to work in restaurants. Denying any legal history. MENTAL STATUS EXAM: General Appearance: Patient appears to be stated age is alert, directable, and attempts to cooperate. Patient appears to have fair hygiene and grooming. Behavior: Patient is seated without any agitated behavior. Attempts to cooperate Speech: Patient's speech is fluent and nonpressured. Mood/Affect: Patient reports their mood is depressed and anxious, affect is congruent and constricted. Suicidality/Homicidality: Patient denies having any homicidal ideation intent or plan. Denies any suicidal ideations intent or plan Perceptions: Patient denies any visual hallucinations and admits to auditory hallucinations, distressing to her. Though content/process: There is no evidence of any delusional thought content and thought process is linear and goal-directed. Memory and concentration: AOX3, grossly intact for the purposes of this session. Can spell "WORLD" backwards Judgment and insight: Fair STRENGTHS/WEAKNESSES: strength is that patient is resilient. Weakness is that patient has chronic symptoms of mental illness and familial history. INTELLECT: average IMPRESSIONS: Psychosis unspecified Cannabis use disorder Nicotine dependence PLAN: -Patient is admitted under voluntary status to [facility] for stabilization of psychiatric symptoms and safety. Patient has signed adult voluntary form and medication consent and is placed in patient's chart. -Medications : Will start patient on Geodon 20 mg twice a day for psychosis/hallucinations. Trazodone 50 mg daily at bedtime for insomnia/mood. -Ativan and Haldol PRN for agitation/aggression -Patient was counselled on substance abuse and desired to cut back on use specifically with regards to the THC. -Patient was informed of the risks, benefits and side effects of the medication and patient verbally consented to taking the medications. Patient signed med consent form and was placed in chart. -Internal Medicine consult to perform medical evaluation and physical. -NRT - nicotine patch -SW on board for discharge planning. Encourage patient to participate in groups to work on coping skills. 05/06/22 12:29 05/06/22 13:23
[2022-05-06 15:44] LABS: Chol/HDL Ratio 5.69 Ratio; LDL Cholesterol,Calculated 139.3 mg/dL (0.0-131.0)
--- NOTE | 2022-05-06 19:16 | CONS ---
CONSULTATION CHIEF COMPLAINT: Depression and acute psychosis. HISTORY OF PRESENT ILLNESS: This is apparently another admission for this 31-year-old female. She was just talked to via Telehealth several days ago. She was requesting a refill. She is on Lexapro and Xanax. Apparently she presented to the emergency room with acute psychosis. The remainder of her history is unremarkable. She has a family history of heart disease, stroke, alcoholism and substance abuse. She is a smoker and drinks alcohol occasionally. She recently had laboratory studies performed at [facility], including a CBC and chem profile, results of which were normal. Lipid studies done at the same time revealed that her LDL was high. Further history was not obtained and the patient was not available for examination at this time. Physical examination will be deferred. IMPRESSION: 1. Acute psychosis. 2. Depression. 3. Hyperlipidemia. 4. Elevated hemoglobin. 5. Chronic obstructive pulmonary disease. RECOMMENDATIONS: None at this time. MMODL / IJN: [id number] /
[2022-05-06] MEDS: traZODone HCL 50 MG TAB PO SCH (20:05)
[2022-05-07] MEDS: NICOTINE 14MG/24HR PATCH TRANSDERM SCH (08:36)
[2022-05-07] MEDS: ZIPRASIDONE 20 MG CAP PO SCH ×2 (08:36→20:31)
--- NOTE | 2022-05-07 10:19 | P.PN ---
Progress Note - Text Progress Note Date: 05/07/22 Clinical Problems: Unspecified psychotic disorder, cannabis use, tobacco use Interim history: I reviewed the medical record and interviewed the patient. She reported that she feels calmer, less depressed and more in control of her thoughts. Prior to admission she experienced uncontrolled and recurrent intrusive thoughts that were generally negative and critical. This experience developed over the last several months. She questioned whether could be related to her state. However, her youngest child is 1-year-old. She denied side effects to the current dose of Geodon. She denied experiencing thoughts of or suicide. We reviewed the results of her computed tomography scan. No structural abnormalities were noted. She's been compliant with prescribed medication. She is posed no management problem and no episodes of behavioral dyscontrol. She is tending therapeutic groups and activities. She slept 7 hours last night. Mental status exam: She presented as casually groomed 31-year-old female who was pleasant on approach. She made eye contact and attended to the interview. She had no distinguishing features or prominent physical abnormalities. She is a blunted but bright facial expression. She was alert and oriented to person, place and time. Her gait was slow but steady. She showed no abnormal involuntary movements. Her speech was spontaneous with normal rate, volume and rhythm. She had no articulation difficulties. Her affect was blunted, slightly anxious but appropriate. She denied suicidal ideation and wishes. She denied homicidal ideation. She did not express feelings of hopelessness, helplessness or worthlessness. She ruminated over her psychotic experiences and expressed concern whether her illness is genetic and whether she should be concerned about her children. She did not express phobias, ideas reference, paranoid ideation, magical ideation or delusions. Her thinking was abstract and associations were coherent, logical and goal directed. She did not demonstrate perseveration, neologisms or blocking. She described a marked decrease in her intrusive thoughts. She did not describe and experience suggestive of a true auditory hallucination. Assessment: She is moderately improved from admission with decrease of intrusive thoughts, anxiety and restlessness. Plan: Continue inpatient treatment. Safety precautions. Continue Geodon 20 mg twice a day and trazodone 50 mg at bedtime for sleep. Haldol and/or Ativan for agitation, aggression acute psychosis. Encourage continued participation in therapeutic groups and activities. Evaluate clinical status response to treatment daily basis.
[2022-05-07] MEDS: LORazepam 1 MG TAB PO PRN (18:38)
[2022-05-07] MEDS: traZODone HCL 50 MG TAB PO SCH (20:31)
[2022-05-08 07:06] VITALS: BP 93/62; PULSE 112; RESP 18; TEMP 97.9
[2022-05-08] MEDS: ZIPRASIDONE 20 MG CAP PO SCH (07:49)
[2022-05-08] MEDS: NICOTINE 14MG/24HR PATCH TRANSDERM SCH (07:49)
[2022-05-08] MEDS: LORazepam 1 MG TAB PO PRN (10:16)
--- NOTE | 2022-05-08 11:47 | P.PN ---
Progress Note - Text Progress Note Date: 05/08/22 Clinical Problems: Schizophrenia, rule out schizoaffective disorder, cannabis use, tobacco use Interim history: I reviewed the medical record and interviewed the patient. She shared a journal that she began after admission where she is documenting her thoughts feelings and past experiences. She also gave me a note where she wrote her most prominent concerns. The note included- talking to herself, anxious, angry outbursts, hearing voices and "delusions that things sometimes." Her journal contained very bizarre and disturbing beliefs and experiences that were recurrent. For example, she recurrently struggles with the belief that she has been repeatedly raped by "100 man", that her family in [place] have body parts interferes, that her vagina and anus were burned from the inside and others. She also wrote about recurrently hearing the voices of her family. She stated that she has struggled with these beliefs since at least 2017. As a results of these experiences her family have noticed her difficulties and is assisted with the care of the children. She was keen to talk about possible diagnoses. We discussed the possibility of psychotic disorder such as schizophrenia or a schizoaffective disorder. She's been compliant with prescribed medication. She is posed no management problem and no episodes of behavioral dyscontrol. She is tending therapeutic groups and activities. She slept 7 hours last night. Mental status exam: She presented as casually groomed 31-year-old female who was pleasant on approach. She made eye contact and attended to the interview. She became tearful as she described her psychotic experiences at times she appeared very distressed. Her speech was spontaneous with normal rate, volume and rhythm. She was reflective, depressed, anxious and tearful. She denied suicidal ideation and wishes. She denied homicidal ideation. She did not express feelings of hopelessness, helplessness or worthlessness. She again ruminated over her psychotic experiences and expressed concern whether her illness is genetic and whether she should be concerned about her children. The child contained bizarre delusional beliefs and ideas of reference. Her thinking was abstract and associations were coherent, logical and goal directed. She did not demonstrate perseveration, neologisms or blocking. She described what appeared to be true auditory hallucinations were family are talking to her. Assessment: She is moderately to severely mentally ill and mildly improve from admission. The symptoms that she is describing are suggestive of primary psychotic disorder such as schizophrenia. Plan: Continue inpatient treatment. Safety precautions. Increase Geodon to 40 mg twice a day and trazodone 50 mg at bedtime for sleep. Haldol and/or Ativan for agitation, aggression acute psychosis. Encourage continued participation in therapeutic groups and activities. Evaluate clinical status response to treatment daily basis.
[2022-05-08] MEDS: traZODone HCL 50 MG TAB PO SCH (20:25)
[2022-05-08] MEDS: ZIPRASIDONE 40 MG CAP PO SCH (20:25)
[2022-05-09] MEDS: ZIPRASIDONE 40 MG CAP PO SCH (08:10)
[2022-05-09] MEDS: NICOTINE 14MG/24HR PATCH TRANSDERM SCH (08:10)
--- NOTE | 2022-05-09 10:45 | P.DS ---
Providers Date of admission: 05/05/22 16:06 Expected date of discharge: 05/09/22 Attending physician: Gabino Stevens MD Consults: 05/05/22 16:09 Consult Physician Routine Consulting Provider: Thomas Ramsay Consult Reason/Comments: Med H&P Do you want consulting provider notified?: Yes Primary care physician: Thomas Ramsay - Discharge Diagnosis(es) (1) Unspecified psychosis Current Visit: Yes Status: Acute Priority: High (2) Cannabis use disorder Current Visit: Yes Status: Acute Priority: Medium (3) Nicotine dependence Current Visit: Yes Status: Acute Priority: Low Hospital Course: Admission HPI: Admission note was completed by process description writer "Patient is a 31-year-old female, currently lives with her in a house, unemployed. Patient presented to the hospital yesterday complaining of depression and anxiety and auditory hallucinations. According to ER report, patient had stated that the voices are telling her that she is worthless and of the negative. She was denying any suicidal thoughts in the ER. Patient has been prescribed Xanax and Lexapro by her PCP. She is positive on her UDS for benzodiazepines. Patient claims that in 2016, she had a "psychotic break" after giving and started hearing voices and apparently was delusional. She states that "it never really cleared". She states that she was able to manage the symptoms better through health and diet changes. She claims that she was not on any psychiatric medications or do not get any other psychiatric help. She claims that in 2020 when she gave to her last child, she claims that the voices came back even stronger and she states that she is "a lot more worried now because I have 2 kids" and states that she has been feeling depressed anxious and hopeless. She states that the voices have been fairly negative in nature and also having causing her feel paranoid. She is not endorsing any delusions at this time. She states that her sleep is "on and off" appetite is been fair. She is denying any history of manic episodes. Patient denies any suicidal or homicidal ideations intent or plan. At this time patient denies any visual hallucinations. Patient denies any flight of ideas racing thoughts and increased in goal directed behavior. Patient admits to using cigarettes daily and also has been smoking THC cigarettes as well. " Hospital course: Upon admission to the unit patient was directable and agreeable to commence treatment and signed adult voluntary form . Patient got along well with other patients on the unit and followed unit protocol. Patient was compliant with the medications and denied any side effects throughout hospital course. Patient was started on Geodon and increased to a dose of 40 mg twice a day for psychosis/hallucinations. Patient was also started on trazodone 50 mg daily at bedtime for insomnia/mood. Patient spoke of her stressors and engaged in therapy both group and individual. Patient was also seen by medical team for history and physical exam. Patient had routine blood work which did not show any significant abnormalities, TSH was within normal limits, patient had a computed tomography scan of her brain without contrast which did not show any acute changes or structural abnormalities present. Throughout the course of the hospitalization patient gradually improved with regards to psychosis/hallucinations, mood, anxiety, sleep and became more future oriented with improved insight and judgment. On the day of discharge patient denied any suicidal or homicidal ideations intent or plan denied any auditory or visual hallucinations. Patient endorsed wanting to live for her kids and her future. The patient denied any access to guns or weapons. Patient denied any paranoia and did not endorse any delusions. Patient does have a significant history of substance abuse and was counseled on abstaining from all substances including alcohol and marijuana. [employer] Technical Assistant spoke with patient about the effects of THC and marijuana on patient's mental health and possibly the cause of her psychotic symptoms, patient agreed to cut back/refrain from use. Patient was also counseled on the medications and need for regular compliance and was encouraged to follow-up with their outpatient appointment for mental health and also for primary care. Prior to discharge a family meeting will be arranged by social psychologist to answer any questions and ensure safety upon discharge. Mental status exam: General Appearance: Patient appears to be stated age is alert, pleasant, and cooperative. Patient is in no acute distress and has improved hygiene and grooming Behavior: Patient is calmly seated without any agitated behavior. Speech: Patient's speech is fluent and nonpressured. Mood/Affect: Patient reports their mood is "better", affect is congruent and euthymic. Suicidality/Homicidality: Patient denies having any suicidal or homicidal ideation intent or plan. Perceptions: Patient denies any auditory or visual hallucinations. Though content/process: There is no evidence of any delusional thought content and thought process is linear and goal-directed. more future oriented Memory and concentration: AOX3, grossly intact for the purposes of this session. Can spell "WORLD" backwards correctly. Judgment and insight: improved with guarded prognosis Impression: Psychosis unspecified Cannabis use disorder Nicotine dependence Plan: -Continue with discharge today as patient has improved and stabilized psychiatrically and is not currently an imminent threat to herself and/or others. -Continue medications: Geodon 40 mg twice a day for psychosis, trazodone 50 mg daily at bedtime for insomnia/mood. -Patient was counseled on the need for medication compliance and appropriate follow-up at mental health and also primary care for medical issues. Patient verbalized understanding and agreed. -Social work to arrange for and conduct family meeting to ensure safety upon discharge and answer any questions/concerns. Social work also to arrange for patients follow up appointments with [facility] for psychiatric care along with follow up with primary care provider. -Patient counseled on abstaining from recreational drugs and marijuana and alcohol. Was informed/educated on the adverse effects on their physical and mental health. Patient verbally agreed and understood. -Patient was instructed to return to the hospital or seek immediate medical care if their psychiatric or medical symptoms do worsen or reoccur. Allergies Allergy/AdvReac Type Severity Reaction Status Date / Time No Known Allergies Allergy Verified 05/05/22 12:05 Laboratory Results WBC 8.5 k/uL (3.8-10.6) 05/06/22 10:00 RBC 5.03 m/uL (3.80-5.40) 05/06/22 10:00 Hgb 15.7 gm/dL (11.4-16.0) 05/06/22 10:00 Hct 48.6 % (34.0-46.0) H 05/06/22 10:00 MCV 96.7 fL (80.0-100.0) 05/06/22 10:00 MCH 31.2 pg (25.0-35.0) 05/06/22 10:00 MCHC 32.3 g/dL (31.0-37.0) 05/06/22 10:00 RDW 12.4 % (11.5-15.5) 05/06/22 10:00 Plt Count 356 k/uL (150-450) 05/06/22 10:00 MPV 7.7 05/06/22 10:00 Neutrophils % 58 % 05/06/22 10:00 Lymphocytes % 32 % 05/06/22 10:00 Monocytes % 3 % 05/06/22 10:00 Eosinophils % 4 % 05/06/22 10:00 Basophils % 1 % 05/06/22 10:00 Neutrophils # 4.9 k/uL (1.3-7.7) 05/06/22 10:00 Lymphocytes # 2.7 k/uL (1.0-4.8) 05/06/22 10:00 Monocytes # 0.3 k/uL (0-1.0) 05/06/22 10:00 Eosinophils # 0.4 k/uL (0-0.7) 05/06/22 10:00 Basophils # 0.1 k/uL (0-0.2) 05/06/22 10:00 Sodium 139 mmol/L (137-145) 05/06/22 10:00 Potassium 4.8 mmol/L (3.5-5.1) 05/06/22 10:00 Chloride 104 mmol/L (98-107) 05/06/22 10:00 Carbon Dioxide 30 mmol/L (22-30) 05/06/22 10:00 Anion Gap 5 mmol/L 05/06/22 10:00 BUN 10 mg/dL (7-17) 05/06/22 10:00 Creatinine 0.87 mg/dL (0.52-1.04) 05/06/22 10:00 Est GFR (CKD-EPI)AfAm >90 (>60 ml/min/1.73 sqM) 05/06/22 10:00 Est GFR (CKD-EPI)NonAf 88 (>60 ml/min/1.73 sqM) 05/06/22 10:00 Glucose 71 mg/dL (74-99) L 05/06/22 10:[address] Glu mg/dL 96 05/06/22 10:00 Hemoglobin A1c 5.0 % (0.0-6.0) 05/06/22 10:00 Calcium 9.2 mg/dL (8.4-10.2) 05/06/22 10:00 Total Bilirubin 0.3 mg/dL (0.2-1.3) 05/06/22 10:00 Conjugated Bilirubin 0.0 mg/dL (0.0-0.3) 05/06/22 10:00 Unconjugated Bilirubin 0.2 mg/dL (0.0-1.1) 05/06/22 10:00 Delta Bilirubin 0.1 mg/dL (0.0-0.2) 05/06/22 10:00 AST 18 U/L (14-36) 05/06/22 10:00 ALT 11 U/L (4-34) 05/06/22 10:00 Alkaline Phosphatase 64 U/L (38-126) 05/06/22 10:00 Total Protein 7.6 g/dL (6.3-8.2) 05/06/22 10:00 Albumin 4.3 g/dL (3.5-5.0) 05/06/22 10:00 Triglycerides 206.00 mg/dL (0.00-149.00) H 05/06/22 10:00 Cholesterol 219.00 mg/dL (0.00-200.00) H 05/06/22 10:00 LDL Cholesterol, Calc 139.3 mg/dL (0.0-131.0) H 05/06/22 10:00 VLDL Cholesterol, Calc 41.20 mg/dL (5.00-40.00) H 05/06/22 10:00 HDL Cholesterol 38.50 mg/dL (40.00-60.00) L 05/06/22 10:00 Cholesterol/HDL Ratio 5.69 Ratio 05/06/22 10:00 TSH 1.380 mIU/L (0.465-4.680) 05/06/22 10:00 Urine Color Yellow 05/05/22 11:47 Urine Appearance Clear (Clear) 05/05/22 11:47 Urine pH 5.5 (5.0-8.0) 05/05/22 11:47 Ur Specific Norris 1.025 (1.001-1.035) 05/05/22 11:47 Urine Protein Negative (Negative) 05/05/22 11:47 Urine Glucose (UA) Negative (Negative) 05/05/22 11:47 Urine Ketones Negative (Negative) 05/05/22 11:47 Urine Blood Moderate (Negative) H 05/05/22 11:47 Urine Nitrite Negative (Negative) 05/05/22 11:47 Urine Bilirubin Negative (Negative) 05/05/22 11:47 Urine Urobilinogen 2.0 mg/dL (<2.0) 05/05/22 11:47 Ur Leukocyte Esterase Negative (Negative) 05/05/22 11:47 Urine RBC 2 /hpf (0-5) 05/05/22 11:47 Urine WBC <1 /hpf (0-5) 05/05/22 11:47 Urine Mucus Rare /hpf (None) H 05/05/22 11:47 Urine HCG, Qual Not Detected (Not Detectd) 05/05/22 11:47 Urine Opiates Screen Not Detected (NotDetected) 05/05/22 11:47 Ur Oxycodone Screen Not Detected (NotDetected) 05/05/22 11:47 Urine Methadone Screen Not Detected (NotDetected) 05/05/22 11:47 Ur Propoxyphene Screen Not Detected (NotDetected) 05/05/22 11:47 Ur Barbiturates Screen Not Detected (NotDetected) 05/05/22 11:47 U Tricyclic Antidepress Not Detected (NotDetected) 05/05/22 11:47 Ur Phencyclidine Scrn Not Detected (NotDetected) 05/05/22 11:47 Ur Amphetamines Screen Not Detected (NotDetected) 05/05/22 11:47 U Methamphetamines Scrn Not Detected (NotDetected) 05/05/22 11:47 U Benzodiazepines Scrn Detected (NotDetected) H 05/05/22 11:47 Urine Cocaine Screen Not Detected (NotDetected) 05/05/22 11:47 U Marijuana (THC) Screen Not Detected (NotDetected) 05/05/22 11:47 Coronavirus (PCR) Not Detected (Not Detectd) 05/05/22 14:25 Vital Signs Temp 97.9 F 05/08/22 07:05 Pulse 112 H 05/08/22 07:05 Resp 18 05/08/22 07:05 BP 93/62 05/08/22 07:05 Pulse Ox 98 05/08/22 07:05 FiO2 Intake & Output 05/08/22 05/09/22 05/09/22 18:59 06:59 18:59 Weight 74.4 kg Patient Condition at Discharge: Good Plan - Discharge Summary Discharge Rx Participant: No New Discharge Prescriptions: New traZODone HCL [Desyrel] 50 mg PO HS 30 Days tab Ziprasidone [Geodon] 40 mg PO BID 30 Days cap Nicotine 14Mg/24Hr Patch [Habitrol] 1 patch TRANSDERM DAILY 14 Days patch Discontinued Escitalopram Oxalate [Lexapro] 10 mg PO DAILY ALPRAZolam [Xanax] 0.25 - 0.5 mg PO DAILY PRN PRN Reason: Anxiety Discharge Medication List Nicotine 14Mg/24Hr Patch [Habitrol] 1 patch TRANSDERM DAILY 14 Days patch 05/09/22 [Rx] Ziprasidone [Geodon] 40 mg PO BID 30 Days cap 05/09/22 [Rx] traZODone HCL [Desyrel] 50 mg PO HS 30 Days tab 05/09/22 [Rx] Follow up Appointment(s)/Referral(s): Thomas Ramsay MD [Primary Care Provider] - 1-2 days Activity/Diet/Wound Care/Special Instructions: Avoid the use of street drugs and alcohol. Take all prescriptions as prescribed. When you are in need of refills on your medications, please contact your medical provider and/or outpatient psychiatrist to have this done. Please go to scheduled outpatient appointment for aftercare treatment. If symptoms return or become worse, call the crisis line at and/or go to the nearest emergency room for evaluation. Discharge Disposition: HOME SELF-CARE
== END 2022-05-09 12:50 | disposition home or self-care (01) | DRG 885 ==
LOC: EC 11:10 → 3MHU 16:06
PROVIDERS: ADMIT Psychiatry & Neurology Psychiatry; ATTEND Psychiatry & Neurology Psychiatry
DX: F23 Brief psychotic disorder (principal); R45.851 Suicidal ideations; E78.5 Hyperlipidemia, unspecified; Z20.822 Contact with and (suspected) exposure to COVID-19; F43.22 Adjustment disorder with anxiety; F10.10 Alcohol abuse, uncomplicated; J44.9 Chronic obstructive pulmonary disease, unspecified; F12.10 Cannabis abuse, uncomplicated; F17.210 Nicotine dependence, cigarettes, uncomplicated; F20.9 Schizophrenia, unspecified; F32.A Depression, unspecified; G47.00 Insomnia, unspecified; Z79.899 Other long term (current) drug therapy; Z82.3 Family history of stroke; Z82.49 Family history of ischemic heart disease and other diseases of the circulatory system; Z71.51 Drug abuse counseling and surveillance of drug abuser; Z56.0 Unemployment, unspecified; Z71.41 Alcohol abuse counseling and surveillance of alcoholic
CPT/HCPCS: 70450; 80053; 80061; 80306; 81001; 81025; 82075; 82248; 83036; 84443; 85025; 86780; 87635; 99285

== ENCOUNTER 2022-05-30 14:56 | Emergency (ER) | payer OTHER ==
[2022-05-30 15:00] VITALS: TEMP 98.2
--- NOTE | 2022-05-30 16:28 | ED ---
General Adult HPI - General Chief complaint: Psychiatric Symptoms Stated complaint: Delusions Time Seen by Provider: 05/30/22 16:05 Source: patient, RN notes reviewed Mode of arrival: ambulatory Limitations: no limitations - History of Present Illness Initial comments: Patient is a pleasant 31-year-old female presenting to the emergency department with concerns with delusions. Symptoms have been occurring for years, worsened she had children. Symptoms also worsen over the past several weeks causing her more anxiety. Patient has delusions that there is a spider in her brain; there and is eating her brain. Patient also has delusions that somebody else put a venous fly trap in her body and it is eating or organs. Patient feels she is anxious regarding this. Patient did have her Geodon increased recently and feels that is only minimally improving. Patient states she'll be out of her medications within the next day and tried to get hold of [facility] with no return call. Patient denies suicidal thoughts. No homicidal thoughts. Patient did one half of a shot of alcohol today to help cope with her anxiety. No physical complaints. - Related Data Previous Rx's Medication Instructions Recorded Ziprasidone [Geodon] 40 mg PO BID 30 Days cap 05/09/22 traZODone HCL [Desyrel] 50 mg PO HS 30 Days tab 05/09/22 Allergies Allergy/AdvReac Type Severity Reaction Status Date / Time No Known Allergies Allergy Verified 05/30/22 17:40 Review of Systems ROS Statement: Those systems with pertinent positive or pertinent negative responses have been documented in the HPI. ROS Other: All systems not noted in ROS Statement are negative. Constitutional: Denies: fever Eyes: Denies: eye pain ENT: Denies: ear pain Respiratory: Denies: cough Cardiovascular: Denies: chest pain Endocrine: Denies: fatigue Gastrointestinal: Denies: abdominal pain Genitourinary: Denies: dysuria Musculoskeletal: Denies: back pain Skin: Denies: rash Neurological: Denies: weakness Psychiatric: Reports: anxiety, visual hallucinations (Patient also appears voices that are telling her she is no good) Past Medical History Past Medical History: No Reported History History of Any Multi-Drug Resistant Organisms: None Reported Past Surgical History: Section Past Anesthesia/Blood Transfusion Reactions: No Reported Reaction Past Psychological History: Anxiety, Depression, PTSD Smoking Status: Current every day smoker Past Alcohol Use History: None Reported Past Drug Use History: Marijuana - Past Family History Father History Unknown: Yes Family Medical History: Chest Pain / Angina, Congestive Heart Failure (CHF) General Exam Limitations: no limitations General appearance: alert, in no apparent distress Head exam: Present: normocephalic Eye exam: Present: normal appearance Neck exam: Present: normal inspection Respiratory exam: Present: normal lung sounds bilaterally Cardiovascular Exam: Present: regular rate, normal rhythm Extremities exam: Present: normal inspection Neurological exam: Present: alert Psychiatric exam: Present: normal affect, normal mood Skin exam: Present: normal color Course Vital Signs 05/30/22 05/30/22 14:57 18:36 Temperature 98.2 F Pulse Rate 99 95 Respiratory 20 16 Rate Blood Pressure 122/87 115/81 O2 Sat by Pulse 100 98 Oximetry Medical Decision Making - Medical Decision Making Patient no longer wants to stay. Patient denies suicidal ideation and does contract for safety. Patient does have an appointment with [facility] Monday and is agreeable to do that. Patient is receptive to receiving a dose of her Geodon prior to leaving to help her with her medication. Patient states she does have additional medication at home. - Lab Data Lab Results 05/30/22 Range/Units 16:17 Urine Opiates Screen Not Detected (NotDetected) Ur Oxycodone Screen Not Detected (NotDetected) Urine Methadone Screen Not Detected (NotDetected) Ur Propoxyphene Screen Not Detected (NotDetected) Ur Barbiturates Screen Not Detected (NotDetected) U Tricyclic Antidepress Not Detected (NotDetected) Ur Phencyclidine Scrn Not Detected (NotDetected) Ur Amphetamines Screen Not Detected (NotDetected) U Methamphetamines Scrn Not Detected (NotDetected) U Benzodiazepines Scrn Not Detected (NotDetected) Urine Cocaine Screen Not Detected (NotDetected) U Marijuana (THC) Screen Not Detected (NotDetected) Disposition Clinical Impression: Acute anxiety, Depression Disposition: Left Against Medical Advice Instructions (If sedation given, give patient instructions): Depression (ED), Anxiety (ED), Hallucinations (ED) Additional Instructions: Please follow-up with primary care physician tomorrow. Please follow-up with [facility] Monday as planned, try to get appointment tomorrow. Return for thoughts of self-harm, worsening symptoms or other concerns. Is patient prescribed a controlled substance at d/c from ED?: No Referrals: Thomas Ramsay MD [Primary Care Provider] - 1-2 days Time of Disposition: 19:35
[2022-05-30 16:54] LABS: Amphetamine Screen,Urine Not Detected (NotDetected); Barbiturate Screen,Urine Not Detected (NotDetected); Benzodiazepines Screen,Urine Not Detected (NotDetected); Cocaine Screen,Urine Not Detected (NotDetected); Methadone Screen, Urine Not Detected (NotDetected); Opiate Screen,Urine Not Detected (NotDetected); Oxycodone Screen, Urine Not Detected (NotDetected); Phencyclidine Screen,Urine Not Detected (NotDetected); Tricyclic Antidepressant,Urine Not Detected (NotDetected); Urn Cannabinoid Scrn Not Detected (NotDetected)
[2022-05-30 18:37] VITALS: BP 115/81; PULSE 95; RESP 16
[2022-05-30] MEDS ORDERED: ZIPRASIDONE 40 MG CAP PO STA (19:32)
== END 2022-05-30 19:56 | disposition left against medical advice (07) ==
LOC: EC 14:56
DX: F41.8 Other specified anxiety disorders (principal); F17.200 Nicotine dependence, unspecified, uncomplicated
CPT/HCPCS: 80306; 82075; 99284

== ENCOUNTER 2022-06-11 19:59 | Emergency (ER) | payer OTHER ==
[2022-06-11 20:04] VITALS: BP 128/94; PULSE 89; RESP 18; TEMP 98.5
--- NOTE | 2022-06-11 21:29 | ED ---
General Adult HPI - General Source: patient, RN notes reviewed, old records reviewed Mode of arrival: ambulatory Limitations: no limitations <Fili Villa - Last Filed: 06/11/22 22:20> <Rema Meehan - Last Filed: 06/12/22 01:31> - General Chief complaint: Psychiatric Symptoms Stated complaint: Mental Health Time Seen by Provider: 06/11/22 20:33 - History of Present Illness Initial comments: Patient is a 31-year-old female with past medical history remarkable for psychiatric illness who presents emergency Department complaining of worsening agitation, suicidal ideations, plan. Patient has a history of bipolar disorder with psychotic features. Presents today for mental health evaluation. He has been agitated lately, and "blew up at her family." They requested that she be evaluated by mental health. Endorses suicidal thoughts of wanting to drive herself off the bridge. Denies any attempts. Denies any homicidal ideations, attempts, plans. Denies any visual hallucinations. Endorses chronic auditory hallucinations. Patient currently has no other acute complaints including denying chest pain, shortness breath, abdominal pain, nausea, vomiting. Denies drinking or using drugs. Presents for further evaluation at this time. (Fili Villa) - Related Data Home Medications Medication Instructions Recorded Confirmed ARIPiprazole [Abilify] 30 mg PO HS 06/02/22 06/02/22 Aripiprazole Lauroxil [Aristada] 882 mg IM DIRECTED 06/02/22 06/02/22 Aripiprazole Lauroxil,Submicr. 675 mg IM ONCE 06/02/22 06/02/22 [Aristada Initio] diphenhydrAMINE [Benadryl] 25 mg PO Q4H PRN 06/02/22 06/02/22 polyethylene glycoL 3350 [Clearlax] 1 packet PO DAILY PRN 06/02/22 06/02/22 Allergies Allergy/AdvReac Type Severity Reaction Status Date / Time No Known Allergies Allergy Verified 06/11/22 20:04 Review of Systems ROS Other: All systems not noted in ROS Statement are negative. <Fili Villa - Last Filed: 06/11/22 22:20> ROS Other: All systems not noted in ROS Statement are negative. <Rema Meehan - Last Filed: 06/12/22 01:31> ROS Statement: Those systems with pertinent positive or pertinent negative responses have been documented in the HPI. Review of Systems: CONST: Denies fever EYES: Denies blurry vision ENT: Denies nasal congestion C/V: Denies Chest pain RESP: Denies shortness of breath GI: Denies abdominal pain : Denies dysuria SKIN: Denies rash. MSK: Denies joint pain. NEURO: Denies headache PSYCH: Denies suicidal and homicidal ideations/plans/attempts. Denies visual or auditory hallucinations. (Fili Villa) Past Medical History Past Medical History: No Reported History History of Any Multi-Drug Resistant Organisms: None Reported Past Surgical History: Section Past Anesthesia/Blood Transfusion Reactions: No Reported Reaction Past Psychological History: Anxiety, Depression, PTSD Smoking Status: Current every day smoker Past Alcohol Use History: Occasional Past Drug Use History: Marijuana - Past Family History Father History Unknown: Yes Family Medical History: Chest Pain / Angina, Congestive Heart Failure (CHF) <Fili Villa - Last Filed: 06/11/22 22:20> General Exam Limitations: no limitations <Fili Villa - Last Filed: 06/11/22 22:20> - General Exam Comments Initial Comments: General: Appears in no acute distress. HEAD: Normal with no signs of head trauma. EYES: EOMI ENT: Hearing grossly intact, normal oropharynx. RESPIRATORY: Clear breath sounds bilaterally. No wheezes, rales, or rhonchi. C/V: Regular rate and rhythm. S1 and S2 auscultated, no edema, peripheral pulses 2+ and intact throughout ABD: Abd is soft, nontender, nondistended EXT: Normal range of motion, no obvious deformity SKIN: No rashes or lesions observed on exposed skin. NEURO: Alert and oriented 4. (Fili Villa) Course Vital Signs 06/11/22 20:00 Temperature 98.5 F Pulse Rate 89 Respiratory 18 Rate Blood Pressure 128/94 O2 Sat by Pulse 98 Oximetry Medical Decision Making <Fili Villa - Last Filed: 06/11/22 22:20> - Medical Decision Making Based on the patient's presentation and physical exam, I do believe she requires psychiatric evaluation. Was placed in green scrubs. Suicide precautions were ordered. Sitter was ordered. BAT is 0. UDS is negative. Vital signs within normal limits. At this time patient is medically cleared for evaluation by psychiatry. Disposition is pending psychiatric evaluation. (Fili Villa) - Lab Data Lab Results 06/11/22 Range/Units 20:45 Urine Opiates Screen Not Detected (NotDetected) Ur Oxycodone Screen Not Detected (NotDetected) Urine Methadone Screen Not Detected (NotDetected) Ur Propoxyphene Screen Not Detected (NotDetected) Ur Barbiturates Screen Not Detected (NotDetected) U Tricyclic Antidepress Not Detected (NotDetected) Ur Phencyclidine Scrn Not Detected (NotDetected) Ur Amphetamines Screen Not Detected (NotDetected) U Methamphetamines Scrn Not Detected (NotDetected) U Benzodiazepines Scrn Not Detected (NotDetected) Urine Cocaine Screen Not Detected (NotDetected) U Marijuana (THC) Screen Not Detected (NotDetected) Disposition <Fili Villa - Last Filed: 06/11/22 22:20> Is patient prescribed a controlled substance at d/c from ED?: No Time of Disposition: 01:31 <Rema Meehan - Last Filed: 06/12/22 01:31> Clinical Impression: Encounter for psychiatric assessment, Suicidal ideation Disposition: HOME SELF-CARE Condition: Stable Instructions (If sedation given, give patient instructions): Suicide Prevention (ED) Additional Instructions: Continue taking your home medications as prescribed. Utilize your support systems. Follow-up as directed by psychiatric services. Return to the emergency department with any new, worsening, or concerning symptoms such as thoughts of causing harm to yourself or anyone else. Referrals: Thomas Ramsay MD [Primary Care Provider] - 1-2 days
[2022-06-11 21:32] LABS: Amphetamine Screen,Urine Not Detected (NotDetected); Barbiturate Screen,Urine Not Detected (NotDetected); Benzodiazepines Screen,Urine Not Detected (NotDetected); Cocaine Screen,Urine Not Detected (NotDetected); Methadone Screen, Urine Not Detected (NotDetected); Opiate Screen,Urine Not Detected (NotDetected); Oxycodone Screen, Urine Not Detected (NotDetected); Phencyclidine Screen,Urine Not Detected (NotDetected); Tricyclic Antidepressant,Urine Not Detected (NotDetected); Urn Cannabinoid Scrn Not Detected (NotDetected)
== END 2022-06-12 01:34 | disposition home or self-care (01) ==
LOC: EC 19:59
DX: R45.851 Suicidal ideations (principal); F12.90 Cannabis use, unspecified, uncomplicated; F17.200 Nicotine dependence, unspecified, uncomplicated; F41.9 Anxiety disorder, unspecified; F32.A Depression, unspecified; Z79.899 Other long term (current) drug therapy
CPT/HCPCS: 80306; 82075; 99284

== ENCOUNTER 2022-07-30 16:39 | Emergency (ER) | payer BC, OTHER ==
[2022-07-30 17:23] VITALS: TEMP 98.5
--- NOTE | 2022-07-30 17:49 | ED ---
Psych HPI - General Chief Complaint: Psychiatric Symptoms Stated Complaint: mental health Time Seen by Provider: 07/30/22 17:35 Source: patient, RN notes reviewed Mode of arrival: ambulatory - History of Present Illness Initial Comments: This is a pleasant 31-year-old female with a history of bipolar disorder with psychotic features. Patient is on Abilify and an injection for an antipsychotic medication which she gets monthly. Patient believes this medication may be wearing off. Patient states she is having auditory hallucinations and delusions. States she is hearing voices that are telling her to harm her self. Patient's keenly aware that these are hallucinations. [place] any homicidal ideation. No ingestions. No overdoses. No substance abuse. No headache, no fever or chills, no changes in vision or hearing, no sore throat or difficulty with speech, no neck pain, no chest pain or shortness of breath, no abdominal pain, no nausea or vomiting, no changes in urination or bowel movements, no numbness or tingling, no extremity pain, no skin rashes or lesions. Past medical, surgical, social, and family history reviewed. - Related Data Home Medications Medication Instructions Recorded Confirmed Aripiprazole Lauroxil [Aristada] 882 mg IM Q28D 06/02/22 07/30/22 polyethylene glycoL 3350 [Clearlax] 1 packet PO DAILY PRN 06/02/22 07/30/22 ARIPiprazole [Abilify] 5 mg PO HS 07/30/22 07/30/22 Gabapentin 600 mg PO TID 07/30/22 07/30/22 Nicotine 21Mg/24Hr Patch [Habitrol] 1 patch TRANSDERM DAILY 07/30/22 07/30/22 hydrOXYzine pamoate [Vistaril] 50 mg PO TID PRN 07/30/22 07/30/22 medroxyPROGESTERone [Depo-Provera] 150 mg IM Q90D 07/30/22 07/30/22 Allergies Allergy/AdvReac Type Severity Reaction Status Date / Time No Known Allergies Allergy Verified 06/11/22 20:04 Review of Systems ROS Statement: Those systems with pertinent positive or pertinent negative responses have been documented in the HPI. ROS Other: All systems not noted in ROS Statement are negative. Past Medical History Past Medical History: No Reported History History of Any Multi-Drug Resistant Organisms: None Reported Past Surgical History: Section Past Anesthesia/Blood Transfusion Reactions: No Reported Reaction Past Psychological History: Anxiety, Depression, PTSD Smoking Status: Current every day smoker Past Alcohol Use History: Occasional Past Drug Use History: Marijuana - Past Family History Father History Unknown: Yes Family Medical History: Chest Pain / Angina, Congestive Heart Failure (CHF) General Exam - General Exam Comments Initial Comments: Healthy-appearing female in no acute distress. Vital signs stable, patient afebrile. Cranial nerves II through XII intact. Limitations: no limitations General appearance: alert, in no apparent distress Head exam: Present: atraumatic, normocephalic, normal inspection Eye exam: Present: normal appearance, PERRL, EOMI. Absent: scleral icterus, conjunctival injection, periorbital swelling ENT exam: Present: normal exam, mucous membranes moist, normal external ear exam. Absent: mucous membranes dry Neck exam: Present: normal inspection. Absent: tenderness, meningismus, lymphadenopathy Respiratory exam: Present: normal lung sounds bilaterally. Absent: respiratory distress, wheezes, rales, rhonchi, stridor Cardiovascular Exam: Present: regular rate, normal rhythm, normal heart sounds. Absent: systolic murmur, diastolic murmur, rubs, gallop, clicks GI/Abdominal exam: Present: soft. Absent: distended, tenderness, guarding, rebound, rigid Extremities exam: Present: normal inspection, full ROM, normal capillary refill. Absent: tenderness, pedal edema, joint swelling, calf tenderness Back exam: Present: normal inspection Neurological exam: Present: alert, oriented X3, CN II-XII intact Psychiatric exam: Present: normal affect, normal mood. Absent: depressed, anxious, flat affect, manic, homicidal ideation, suicidal ideation Skin exam: Present: warm, dry, intact, normal color. Absent: rash, cyanosis, diaphoretic Course Vital Signs 07/30/22 07/31/22 17:20 02:04 Temperature 98.5 F Pulse Rate 85 80 Respiratory 18 16 Rate Blood Pressure 126/75 130/80 O2 Sat by Pulse 98 99 Oximetry Medical Decision Making - Medical Decision Making Patient with history of bipolar disorder with psychotic features presents for evaluation after having increased auditory hallucinations and delusions. I was informed that we'll not have emergency psychiatric services until 11 PM. - Lab Data Lab Results 07/30/22 07/30/22 Range/Units 18:03 18:03 Urine Color Light Yellow Urine Appearance Clear (Clear) Urine pH 5.5 (5.0-8.0) Ur Specific [place] 1.008 (1.001-1.035) Urine Protein Negative (Negative) Urine Glucose (UA) Negative (Negative) Urine Ketones Negative (Negative) Urine Blood Small H (Negative) Urine Nitrite Negative (Negative) Urine Bilirubin Negative (Negative) Urine Urobilinogen <2.0 (<2.0) mg/dL Ur Leukocyte Esterase Negative (Negative) Urine RBC <1 (0-5) /hpf Urine WBC 1 (0-5) /hpf Urine Mucus Rare H (None) /hpf Urine HCG, Qual Not Detected (Not Detectd) Urine Opiates Screen Not Detected (NotDetected) Ur Oxycodone Screen Not Detected (NotDetected) Urine Methadone Screen Not Detected (NotDetected) Ur Propoxyphene Screen Not Detected (NotDetected) Ur Barbiturates Screen Not Detected (NotDetected) U Tricyclic Antidepress Not Detected (NotDetected) Ur Phencyclidine Scrn Not Detected (NotDetected) Ur Amphetamines Screen Not Detected (NotDetected) U Methamphetamines Scrn Not Detected (NotDetected) U Benzodiazepines Scrn Not Detected (NotDetected) Urine Cocaine Screen Not Detected (NotDetected) U Marijuana (THC) Screen Not Detected (NotDetected) Disposition Clinical Impression: Acute psychosis Disposition: HOME SELF-CARE Condition: Stable Is patient prescribed a controlled substance at d/c from ED?: No Referrals: Thomas Ramsay MD [STAFF PHYSICIAN] - 1-2 days
[2022-07-30 18:11] LABS: Appearance,Urine Clear (Clear); Bilirubin,Urine Negative (Negative); Blood,Urine Small (Negative); Color,Urine Light Yellow; Glucose,Urine (UA) Negative (Negative); Ketones,Urine Negative (Negative); Leukocyte Esterase,Urine Negative (Negative); Mucus,Urine Rare /hpf; Nitrite,Urine Negative (Negative); PH, Urine 5.5 (5.0-8.0); Protein,Urine Negative (Negative); RBC,Urine <1 /hpf (0-5); Specific Gravity,Urine 1.008 (1.001-1.035); Urobilinogen,Urine <2.0 mg/dL (<2.0); WBC,Urine 1 /hpf (0-5)
[2022-07-30 18:21] LABS: Amphetamine Screen,Urine Not Detected (NotDetected); Barbiturate Screen,Urine Not Detected (NotDetected); Benzodiazepines Screen,Urine Not Detected (NotDetected); Cocaine Screen,Urine Not Detected (NotDetected); Methadone Screen, Urine Not Detected (NotDetected); Opiate Screen,Urine Not Detected (NotDetected); Oxycodone Screen, Urine Not Detected (NotDetected); Phencyclidine Screen,Urine Not Detected (NotDetected); Tricyclic Antidepressant,Urine Not Detected (NotDetected); Urn Cannabinoid Scrn Not Detected (NotDetected)
[2022-07-30] MEDS ORDERED: GABAPENTIN 100 MG CAP PO STA (19:41)
[2022-07-30] MEDS ORDERED: ARIPiprazole 5 MG TAB PO STA (19:41)
[2022-07-31 02:06] VITALS: BP 130/80; PULSE 80; RESP 16
== END 2022-07-31 02:06 | disposition home or self-care (01) ==
LOC: EC 16:39
DX: F23 Brief psychotic disorder (principal); F17.200 Nicotine dependence, unspecified, uncomplicated
CPT/HCPCS: 80306; 81001; 81025; 82075; 99284

== ENCOUNTER → 2022-08-31 | Outpatient (CLI) | payer BC, OTHER ==
--- NOTE | 2022-08-31 16:45 | US ---
EXAMINATION TYPE: US abdomen complete DATE OF EXAM: 08/31/2022 COMPARISON: NONE CLINICAL HISTORY: K52.9 CHRONIC DIARRHEA. TECHNIQUE: Multiple sonographic images of the abdomen are obtained. FINDINGS: EXAM MEASUREMENTS: Liver Length: 11.3 cm Gallbladder Wall: 0.21 cm CBD: 0.39 cm Spleen: 9.0 cm Right Kidney: 10.5 x 4.1 x 4.2 cm Left Kidney: 10.1 x 4.5 x 5.0 cm Pancreas: Tail obscured by overlying bowel gas Liver: wnl Gallbladder: wnl Evidence for sonographic Will's sign: No CBD: wnl Spleen: wnl Right Kidney: wnl Left Kidney: wnl Upper IVC: wnl Abd Aorta: wnl The liver is homogenous. The intrahepatic portion of the IVC and proximal abdominal aorta are within normal limits. There is no evidence of cholelithiasis. Common bile duct is unremarkable. The visu alized portions of the pancreas are homogenous. The spleen is unremarkable. Kidneys are symmetric a nd free of hydronephrosis. No renal lesions are seen. IMPRESSION: No evidence for acute intra-abdominal process.
== END | disposition home or self-care (01) ==
LOC: RADUSWWP 14:44
PROVIDERS: ATTEND Family Medicine
DX: K52.9 Noninfective gastroenteritis and colitis, unspecified (principal)
CPT/HCPCS: 76700

== ENCOUNTER 2022-09-25 17:57 | Inpatient (IN) | payer BC, MEDICAID ==
--- NOTE | 2022-09-25 20:27 | ED ---
Psych HPI - General Chief Complaint: Psychiatric Symptoms Stated Complaint: Mental Health Time Seen by Provider: 09/25/22 18:26 Source: patient, RN notes reviewed Mode of arrival: ambulatory - History of Present Illness Initial Comments: This is a 31-year-old female who presents to the emergency department for psychiatric evaluation. Patient is expressing suicidal and homicidal thoughts. Her recently lost his job and she has had overall stressful life circumstances. She feels like she is full of rage and wants to hurt someone. She also feels like she is very restless and cannot sit still. [facility] is unable to see her until late October. She is currently on Abilify, which she thinks is not doing enough for her and she would like medication adjustments. She does not think that she is safe to go home, as she is worried that she might kill somebody. Denies any fevers, chills, sore throat, cough, dyspnea, chest pain, palpitations, abdominal pain, nausea, vomiting, diarrhea, back pain, or headaches. MD Complaint: suicidal ideation, other (homicidal ideation) - Related Data Home Medications Medication Instructions Recorded Confirmed Aripiprazole Lauroxil [Aristada] 882 mg IM Q28D 06/02/22 09/25/22 polyethylene glycoL 3350 [Clearlax] 17 gm PO DAILY PRN 06/02/22 09/25/22 Gabapentin 600 mg PO TID 07/30/22 09/25/22 Nicotine 21Mg/24Hr Patch [Habitrol] 1 patch TRANSDERM DAILY PRN 07/30/22 09/25/22 medroxyPROGESTERone [Depo-Provera] 150 mg IM Q90D 07/30/22 09/25/22 Dicyclomine [Bentyl] 20 mg PO QID PRN 09/25/22 09/25/22 Diphenoxylate HCl/Atropine 1 - 2 tab PO QID PRN 09/25/22 09/25/22 [Lomotil 2.5-0.025 mg Tablet] Evening [place] Oil 500 mg PO HS 09/25/22 09/25/22 Multivitamins, Thera [Multivitamin 1 tab PO HS 09/25/22 09/25/22 (formulary)] [place]-3/Dha/Epa/Fish Oil [Fish Oil 1 cap PO HS 09/25/22 09/25/22 1,000 mg Softgel] Oxybutynin Chloride [Ditropan XL] 5 mg PO BID 09/25/22 09/25/22 Allergies Allergy/AdvReac Type Severity Reaction Status Date / Time No Known Allergies Allergy Verified 09/25/22 19:58 Review of Systems ROS Statement: Those systems with pertinent positive or pertinent negative responses have been documented in the HPI. ROS Other: All systems not noted in ROS Statement are negative. Past Medical History Past Medical History: No Reported History History of Any Multi-Drug Resistant Organisms: None Reported Past Surgical History: Section Past Anesthesia/Blood Transfusion Reactions: No Reported Reaction Past Psychological History: Anxiety, Bipolar, PTSD Smoking Status: Current every day smoker Past Alcohol Use History: Occasional Past Drug Use History: Marijuana - Past Family History Father History Unknown: Yes Family Medical History: Chest Pain / Angina, Congestive Heart Failure (CHF) General Exam Limitations: no limitations General appearance: alert Head exam: Present: atraumatic, normocephalic, normal inspection Respiratory exam: Present: normal lung sounds bilaterally. Absent: respiratory distress, wheezes, rales, rhonchi, stridor Cardiovascular Exam: Present: regular rate, normal rhythm, normal heart sounds. Absent: systolic murmur, diastolic murmur, rubs, gallop, clicks Neurological exam: Present: alert, oriented X3, CN II-XII intact Psychiatric exam: Present: agitated, homicidal ideation, suicidal ideation Expanded Focused psych exam: Present: restlessness Skin exam: Present: warm, dry, intact, normal color. Absent: rash Course Vital Signs 09/25/22 18:00 Temperature 97.9 F Pulse Rate 107 H Respiratory 22 Rate Blood Pressure 127/83 O2 Sat by Pulse 96 Oximetry Medical Decision Making - Medical Decision Making This is a 31-year-old female who presents to the emergency department for psychiatric evaluation. EtOH was 0 on arrival. Patient has no medical complaints. Patient was evaluated by EPS, and the patient states that she would like to sign herself in for admission. Covid testing ordered and negative. Patient cleared for admission to [facility]. This case was discussed in detail with the attending ED physician. Presentation, findings, and treatment plan discussed in detail as well. - Lab Data Lab Results 09/25/22 Range/Units 20:36 Coronavirus (PCR) Not Detected (Not Detectd) Disposition Clinical Impression: Suicidal ideation, Homicidal ideation Disposition: ADMITTED IP TO THIS HOSP
[2022-09-25] MEDS ORDERED: HALOPERIDOL LACTATE 5 MG/ML 1 ML VIAL IM PRN (22:02)
[2022-09-25] MEDS ORDERED: ACETAMINOPHEN TAB 325 MG TAB PO PRN (22:02)
[2022-09-25] MEDS ORDERED: NICOTINE 21MG/24HR PATCH TRANSDERM PRN (22:05)
[2022-09-25] MEDS ORDERED: LORazepam 2 MG/ML INJ IM PRN (22:07)
[2022-09-25] MEDS ORDERED: NON FORMULARY DRUG (Aripiprazole Lauroxil [Aristada] 882 MG/3.2 ML Suser.Syr) IM SCH (22:15)
[2022-09-25] MEDS: GABAPENTIN 300 MG CAP PO SCH (22:35)
[2022-09-25] MEDS: LORazepam 1 MG TAB PO PRN (22:36)
[2022-09-25] MEDS: DICYCLOMINE 20 MG TAB PO PRN (22:36)
[2022-09-26] MEDS: DICYCLOMINE 20 MG TAB PO PRN (07:08)
[2022-09-26 07:09] LABS: Basophils # (A) 0.1 k/uL (0-0.2); Basophils % (A) 1 %; Eosinophils # (A) 0.3 k/uL (0-0.7); Eosinophils % (A) 3 %; HGB 14.8 gm/dL (11.4-16.0); Lymphocytes % (A) 24 %; MCH 31.2 pg (25.0-35.0); MCHC 33.6 g/dL (31.0-37.0); MCV 92.9 fL (80.0-100.0); Mean Platelet Volume 7.6; Monocytes # (A) 0.3 k/uL (0-1.0); Monocytes % (A) 4 %; Neutrophils # (A) 5.5 k/uL (1.3-7.7); Neutrophils % (A) 67 %; Platelet Count 321 k/uL (150-450); RBC 4.74 m/uL (3.80-5.40); RDW 11.6 % (11.5-15.5); WBC 8.3 k/uL (3.8-10.6)
[2022-09-26 07:46] LABS: ALT 17 U/L (4-34); AST 17 U/L (14-36); African American GFR (CKD) >90 (>60 ml/min/1.73 sqM); Albumin 3.7 g/dL (3.5-5.0); Alkaline Phosphatase 59 U/L (38-126); Anion Gap 7 mmol/L; Blood Urea Nitrogen 10 mg/dL (7-17); Calcium 8.4 mg/dL (8.4-10.2); Carbon Dioxide 25 mmol/L (22-30); Chloride 110 mmol/L (98-107); Glucose 91 mg/dL (74-99); Non-African American GFR(CKD) >90 (>60 ml/min/1.73 sqM); Potassium 4.5 mmol/L (3.5-5.1); Sodium 142 mmol/L (137-145); Total Bilirubin 0.5 mg/dL (0.2-1.3); Total Protein 6.8 g/dL (6.3-8.2)
[2022-09-26] MEDS: OXYBUTYNIN XL 5 MG TAB.ER.24 PO SCH ×2 (07:59→20:14)
[2022-09-26] MEDS: NICOTINE 14MG/24HR PATCH TRANSDERM SCH (07:59)
[2022-09-26] MEDS: GABAPENTIN 300 MG CAP PO SCH ×3 (07:59→20:13)
[2022-09-26] MEDS: LORazepam 1 MG TAB PO PRN ×3 (07:59→20:32)
[2022-09-26] MEDS ORDERED: MAG HYDROX/AL HYDROX/SIMETH 355 ML BOTTLE PO PRN (08:00)
[2022-09-26] MEDS ORDERED: polyethylene glycoL 3350 17 GM POWD.PACK PO PRN (09:00)
[2022-09-26] MEDS ORDERED: GABAPENTIN 300 MG CAP PO SCH (09:00)
[2022-09-26] MEDS ORDERED: lamoTRIgine 25 MG TAB PO STA (10:11)
[2022-09-26 10:49] LABS: Chol/HDL Ratio 6.04 Ratio; LDL Cholesterol,Calculated 113.1 mg/dL (0.0-131.0)
[2022-09-26] MEDS: haloperidoL 5 MG TAB PO PRN ×2 (11:31→18:16)
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
[2022-09-26] MEDS: busPIRone HCl 10 MG TAB PO SCH ×2 (16:08→20:14)
[2022-09-26] MEDS: MULTIVITAMINS, THERA 1 EACH TAB PO SCH (20:13)
[2022-09-26] MEDS ORDERED: PALIPERIDONE 3 MG TAB.ER.24 PO SCH (21:00)
[2022-09-26] MEDS ORDERED: NON FORMULARY DRUG (Omega-3/Dha/Epa/Fish Oil [Fish Oil 1,000 Mg Softgel] 1 EACH Capsule) PO SCH (21:00)
--- NOTE | 2022-09-27 05:45 | CONS ---
CONSULTATION CHIEF COMPLAINT: Depression, psychosis and homicidal thoughts. HISTORY OF PRESENT ILLNESS: This 31-year-old white female apparently was admitted through the emergency room very anxious and agitated and talking about killing people. REVIEW OF SYSTEMS: Not obtained. Past medical history, family history, and personal and social histories reveal that she has had problems in the past with anxiety, depression, as well as previous psychotic disorder. MEDICATIONS: She has been on: 1. Omeprazole. 2. Oxybutynin. 3. Chantix. 4. Depo-Provera. 5. Abilify. 6. Gabapentin. 7. Hydroxyzine. 8. Aristada injection. 9. Depo-Provera injection. ALLERGIES: She is not allergic to any medication. FAMILY HISTORY/SOCIAL HISTORY: She has a family history of depression and alcoholism. She does smoke. PHYSICAL EXAMINATION: Vital signs are found in her record. The remainder of her exam is deferred. She was not available at the time that I went to do an assessment. IMPRESSION: 1. Acute psychosis. 2. Depression. 3. Homicidal threats. RECOMMENDATION: None at this time. Thank you respectfully, IRENA / ABAD: [id number] /
[2022-09-27 06:35] VITALS: RESP 16
[2022-09-27] MEDS: NICOTINE 14MG/24HR PATCH TRANSDERM SCH (08:15)
[2022-09-27] MEDS: lamoTRIgine 25 MG TAB PO SCH (08:15)
[2022-09-27] MEDS: OXYBUTYNIN XL 5 MG TAB.ER.24 PO SCH ×2 (08:15→20:09)
[2022-09-27] MEDS: busPIRone HCl 10 MG TAB PO SCH (08:15)
[2022-09-27] MEDS: GABAPENTIN 300 MG CAP PO SCH ×3 (08:15→20:08)
[2022-09-27] MEDS: DIPHENOX-ATROP 2.5-0.025 MG 1 EACH TAB PO PRN (08:44)
--- NOTE | 2022-09-27 11:09 | P.PN ---
Progress Note - Text Progress Note Date: 09/27/22 Interval History: Patient was seen wandering the hallways and was directable and agreeable to speak with senior copywriter in the office. Currently, the patient was that she is feeling better. She did receive Haldol and Ativan yesterday due to intrusive delusional thoughts that were bothersome for her. However, the patient continues to be able to realize these are not real despite feeling real. She is currently denying any suicidal or homicidal ideation, intention, and/or plan today. She is not reporting any auditory or visual hallucinations today. She reports that she has not experienced any intrusive delusional thoughts as of yet today. She states that she is eating and sleeping well. She has been in adherent with her medications and is not reporting any significant side effects. She is in agreement for further titration of her medications. She would like to start metformin to help curb the side effect of weight gain from her antipsychotic. Mental Status Exam: General Appearance: Patient appears to be stated age is alert, directable, and cooperative. Behavior: Patient is calmly seated without any agitated behavior. Speech: Patient's speech is fluent and nonpressured. Mood/Affect: Mood is improving mildly, affect is congruent and blunted. Suicidality/Homicidality: Patient denies having any suicidal or homicidal ideation intent or plan. Perceptions: Patient denies any visual hallucinations and denies any auditory hallucinations Though content/process: She endorsed delusional thoughts yesterday however is not reporting any today. Memory and concentration: AOX3, grossly intact for the purposes of this session Judgment and insight: Improving mildly Vital Signs Temp 97.8 F 09/26/22 22:00 Pulse 99 09/26/22 22:00 Resp 16 09/26/22 22:00 BP 114/71 09/26/22 22:00 Pulse Ox 99 09/26/22 22:00 FiO2 Assessment Schizoaffective disorder, bipolar type Tobacco use disorder Posttraumatic stress disorder Generalized anxiety disorder Plan: -Patient continues to meet criteria for inpatient psychiatric admission for symptom stabilization and safety. Patient has signed adult voluntary form and medication consent and was placed in patient's chart. -Medications: Increase Invega to 6 mg by mouth at bedtime for psychosis Continue gabapentin 600 mg by mouth 3 times a day for off label use for anxiety Increase BuSpar to 15 mg by mouth 3 times a day for anxiety Continue Lamictal 25 mg by mouth daily for mood stabilization Start metformin 500 mg by mouth twice a day with meals for weight side effect -When necessary Ativan and Haldol for agitation/aggression. -NRT - nicotine patch -SW on board for discharge planning. Encouraged the patient to participate in milieu.
[2022-09-27] MEDS: DICYCLOMINE 20 MG TAB PO PRN (12:37)
[2022-09-27] MEDS: busPIRone HCl 5 MG TAB PO SCH ×2 (15:39→20:08)
[2022-09-27] MEDS: metFORMIN 500 MG TAB PO SCH (17:30)
[2022-09-27] MEDS: LORazepam 1 MG TAB PO PRN (20:08)
[2022-09-27] MEDS: MULTIVITAMINS, THERA 1 EACH TAB PO SCH (20:08)
[2022-09-27] MEDS ORDERED: PALIPERIDONE 3 MG TAB.ER.24 PO SCH (21:00)
[2022-09-28] MEDS: GABAPENTIN 300 MG CAP PO SCH (08:13)
[2022-09-28] MEDS: busPIRone HCl 5 MG TAB PO SCH (08:14)
[2022-09-28] MEDS: lamoTRIgine 25 MG TAB PO SCH (08:14)
[2022-09-28] MEDS: metFORMIN 500 MG TAB PO SCH (08:14)
[2022-09-28] MEDS: NICOTINE 14MG/24HR PATCH TRANSDERM SCH (08:14)
[2022-09-28] MEDS: OXYBUTYNIN XL 5 MG TAB.ER.24 PO SCH (08:15)
[2022-09-28] MEDS: DIPHENOX-ATROP 2.5-0.025 MG 1 EACH TAB PO PRN (10:17)
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
[2022-09-28] MEDS: DICYCLOMINE 20 MG TAB PO PRN (10:47)
[2022-09-28 11:11] VITALS: BP 116/69; PULSE 121; TEMP 97.7
== END 2022-09-28 12:40 | disposition home or self-care (01) | DRG 885 ==
LOC: EC 17:57 → 3MHU 21:11
PROVIDERS: ADMIT Psychiatry & Neurology Psychiatry; ATTEND Psychiatry & Neurology Psychiatry
DX: F25.0 Schizoaffective disorder, bipolar type (principal); R45.851 Suicidal ideations; F23 Brief psychotic disorder; R45.850 Homicidal ideations; F43.10 Post-traumatic stress disorder, unspecified; F17.210 Nicotine dependence, cigarettes, uncomplicated; F41.1 Generalized anxiety disorder; K58.9 Irritable bowel syndrome, unspecified; R45.1 Restlessness and agitation; Z20.822 Contact with and (suspected) exposure to COVID-19; Z62.810 Personal history of physical and sexual abuse in childhood; Z62.811 Personal history of psychological abuse in childhood; Z79.899 Other long term (current) drug therapy; Z28.310 Unvaccinated for COVID-19; Z91.51 Personal history of suicidal behavior
CPT/HCPCS: 80053; 80061; 80178; 83036; 84443; 85025; 87635; 99285

== ENCOUNTER 2023-03-01 11:24 | Inpatient (IN) | payer BC, MEDICAID ==
[2023-03-01 12:26] LABS: Amphetamine Screen,Urine Not Detected (NotDetected); Barbiturate Screen,Urine Not Detected (NotDetected); Benzodiazepines Screen,Urine Not Detected (NotDetected); Cocaine Screen,Urine Not Detected (NotDetected); Methadone Screen, Urine Not Detected (NotDetected); Opiate Screen,Urine Not Detected (NotDetected); Oxycodone Screen, Urine Not Detected (NotDetected); Phencyclidine Screen,Urine Not Detected (NotDetected); Tricyclic Antidepressant,Urine Not Detected (NotDetected); Urn Cannabinoid Scrn Detected (NotDetected)
[2023-03-01] MEDS ORDERED: NICOTINE 21MG/24HR PATCH TRANSDERM STA (12:35)
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
[2023-03-01] MEDS ORDERED: MAGNESIUM HYDROXIDE 2,400 MG/10 ML CUP PO PRN (15:44)
[2023-03-01] MEDS ORDERED: ACETAMINOPHEN TAB 325 MG TAB PO PRN (15:44)
[2023-03-01] MEDS ORDERED: PANTOPRAZOLE 40 MG TABLET PO PRN (15:47)
[2023-03-01] MEDS ORDERED: haloperidoL 5 MG TAB PO PRN (15:49)
[2023-03-01] MEDS ORDERED: HALOPERIDOL LACTATE 5 MG/ML 1 ML VIAL IM PRN (15:49)
[2023-03-01] MEDS ORDERED: LORazepam 2 MG/ML INJ IM PRN (15:49)
[2023-03-01] MEDS: GABAPENTIN 300 MG CAP PO SCH ×2 (17:08→20:10)
[2023-03-01] MEDS: metFORMIN 500 MG TAB PO SCH (17:08)
[2023-03-01] MEDS: busPIRone HCl 5 MG TAB PO SCH ×2 (17:08→20:10)
[2023-03-01] MEDS: LORazepam 1 MG TAB PO PRN (17:11)
[2023-03-01] MEDS: ELUXADOLINE 75 MG PO SCH (17:22)
[2023-03-01] MEDS: OXYBUTYNIN 10 MG TAB.ER.24 PO SCH (20:10)
[2023-03-01] MEDS: PALIPERIDONE 6 MG TAB.ER.24 PO SCH (20:10)
[2023-03-02] MEDS: LORazepam 1 MG TAB PO PRN ×2 (06:45→19:06)
[2023-03-02] MEDS: NICOTINE 14MG/24HR PATCH TRANSDERM SCH (07:55)
[2023-03-02] MEDS: metFORMIN 500 MG TAB PO SCH ×2 (07:55→17:01)
[2023-03-02] MEDS: GABAPENTIN 300 MG CAP PO SCH ×3 (07:56→20:06)
[2023-03-02] MEDS: busPIRone HCl 5 MG TAB PO SCH ×4 (07:56→20:06)
[2023-03-02] MEDS: OXYBUTYNIN 10 MG TAB.ER.24 PO SCH ×2 (07:58→20:06)
[2023-03-02 08:19] LABS: Basophils % (A) 1 %; Eosinophils # (A) 0.2 k/uL (0-0.7); Eosinophils % (A) 3 %; HGB 16.5 gm/dL (11.4-16.0); Lymphocytes # (A) 1.8 k/uL (1.0-4.8); Lymphocytes % (A) 27 %; MCH 30.7 pg (25.0-35.0); MCHC 33.7 g/dL (31.0-37.0); MCV 91.2 fL (80.0-100.0); Mean Platelet Volume 7.6; Monocytes # (A) 0.3 k/uL (0-1.0); Monocytes % (A) 5 %; Neutrophils # (A) 4.3 k/uL (1.3-7.7); Neutrophils % (A) 64 %; Platelet Count 307 k/uL (150-450); RBC 5.38 m/uL (3.80-5.40); RDW 12.3 % (11.5-15.5); WBC 6.7 k/uL (3.8-10.6)
[2023-03-02 08:34] LABS: ALT 18 U/L (4-34); AST 19 U/L (14-36); African American GFR (CKD) >90 (>60 ml/min/1.73 sqM); Albumin 4.5 g/dL (3.5-5.0); Alkaline Phosphatase 64 U/L (38-126); Anion Gap 12 mmol/L; Blood Urea Nitrogen 8 mg/dL (7-17); Calcium 9.4 mg/dL (8.4-10.2); Carbon Dioxide 26 mmol/L (22-30); Chloride 103 mmol/L (98-107); Glucose 95 mg/dL (74-99); Non-African American GFR(CKD) 81 (>60 ml/min/1.73 sqM); Sodium 141 mmol/L (137-145); Total Bilirubin 0.6 mg/dL (0.2-1.3); Total Protein 7.7 g/dL (6.3-8.2)
[2023-03-02] MEDS ORDERED: lamoTRIgine 100 MG TAB PO SCH (09:00)
[2023-03-02] MEDS: ELUXADOLINE 75 MG PO SCH ×2 (09:01→18:42)
[2023-03-02] MEDS: MAG HYDROX/AL HYDROX/SIMETH 30 ML CUP PO PRN (09:31)
[2023-03-02] MEDS ORDERED: ONDANSETRON 4 MG TAB PO PRN (10:26)
[2023-03-02] MEDS: SERTRALINE 50 MG TAB PO SCH (12:06)
[2023-03-02 15:31] LABS: Appearance,Urine Clear (Clear); Bilirubin,Urine Negative (Negative); Blood,Urine Negative (Negative); Color,Urine Light Yellow; Glucose,Urine (UA) Negative (Negative); Ketones,Urine Negative (Negative); Leukocyte Esterase,Urine Negative (Negative); Nitrite,Urine Negative (Negative); Protein,Urine Negative (Negative); Specific Gravity,Urine 1.007 (1.001-1.035); Urobilinogen,Urine <2.0 mg/dL (<2.0)
[2023-03-02] MEDS: lamoTRIgine 100 MG TAB PO SCH (20:06)
[2023-03-02] MEDS: MELATONIN 5 MG TABLET PO SCH (20:06)
[2023-03-02] MEDS: PALIPERIDONE 6 MG TAB.ER.24 PO SCH (20:06)
--- NOTE | 2023-03-02 22:05 | P.HP ---
Psychiatric H&P - . H&P Date: 03/02/23 History & Physical: Allergies Allergy/AdvReac Type Severity Reaction Status Date / Time No Known Allergies Allergy Verified 03/01/23 13:19 Vital Signs Temp 98.2 F 03/02/23 06:38 Pulse 149 H 03/02/23 06:38 Resp 14 03/02/23 06:38 BP 115/79 03/02/23 06:38 Pulse Ox 98 03/01/23 17:38 FiO2 Intake & Output 03/01/23 03/02/23 03/02/23 18:59 06:59 18:59 Weight 83.6 kg Laboratory Last Values WBC 6.7 k/uL (3.8-10.6) 03/02/23 08:00 RBC 5.38 m/uL (3.80-5.40) 03/02/23 08:00 Hgb 16.5 gm/dL (11.4-16.0) H 03/02/23 08:00 Hct 49.0 % (34.0-46.0) H 03/02/23 08:00 MCV 91.2 fL (80.0-100.0) 03/02/23 08:00 MCH 30.7 pg (25.0-35.0) 03/02/23 08:00 MCHC 33.7 g/dL (31.0-37.0) 03/02/23 08:00 RDW 12.3 % (11.5-15.5) 03/02/23 08:00 Plt Count 307 k/uL (150-450) 03/02/23 08:00 MPV 7.6 03/02/23 08:00 Neutrophils % 64 % 03/02/23 08:00 Lymphocytes % 27 % 03/02/23 08:00 Monocytes % 5 % 03/02/23 08:00 Eosinophils % 3 % 03/02/23 08:00 Basophils % 1 % 03/02/23 08:00 Neutrophils # 4.3 k/uL (1.3-7.7) 03/02/23 08:00 Lymphocytes # 1.8 k/uL (1.0-4.8) 03/02/23 08:00 Monocytes # 0.3 k/uL (0-1.0) 03/02/23 08:00 Eosinophils # 0.2 k/uL (0-0.7) 03/02/23 08:00 Basophils # 0.0 k/uL (0-0.2) 03/02/23 08:00 Sodium 141 mmol/L (137-145) 03/02/23 08:00 Potassium 4.0 mmol/L (3.5-5.1) 03/02/23 08:00 Chloride 103 mmol/L (98-107) 03/02/23 08:00 Carbon Dioxide 26 mmol/L (22-30) 03/02/23 08:00 Anion Gap 12 mmol/L 03/02/23 08:00 BUN 8 mg/dL (7-17) 03/02/23 08:00 Creatinine 0.93 mg/dL (0.52-1.04) 03/02/23 08:00 Est GFR (CKD-EPI)AfAm >90 (>60 ml/min/1.73 sqM) 03/02/23 08:00 Est GFR (CKD-EPI)NonAf 81 (>60 ml/min/1.73 sqM) 03/02/23 08:00 Glucose 95 mg/dL (74-99) 03/02/23 08:[address] Glu mg/dL 93 03/02/23 08:00 Hemoglobin A1c 4.9 % (0.0-6.0) 03/02/23 08:00 Calcium 9.4 mg/dL (8.4-10.2) 03/02/23 08:00 Total Bilirubin 0.6 mg/dL (0.2-1.3) 03/02/23 08:00 AST 19 U/L (14-36) 03/02/23 08:00 ALT 18 U/L (4-34) 03/02/23 08:00 Alkaline Phosphatase 64 U/L (38-126) 03/02/23 08:00 Total Protein 7.7 g/dL (6.3-8.2) 03/02/23 08:00 Albumin 4.5 g/dL (3.5-5.0) 03/02/23 08:00 TSH 0.830 mIU/L (0.465-4.680) 03/02/23 08:00 Urine Opiates Screen Not Detected (NotDetected) 03/01/23 11:50 Ur Oxycodone Screen Not Detected (NotDetected) 03/01/23 11:50 Urine Methadone Screen Not Detected (NotDetected) 03/01/23 11:50 Ur Propoxyphene Screen Not Detected (NotDetected) 03/01/23 11:50 Ur Barbiturates Screen Not Detected (NotDetected) 03/01/23 11:50 U Tricyclic Antidepress Not Detected (NotDetected) 03/01/23 11:50 Ur Phencyclidine Scrn Not Detected (NotDetected) 03/01/23 11:50 Ur Amphetamines Screen Not Detected (NotDetected) 03/01/23 11:50 U Methamphetamines Scrn Not Detected (NotDetected) 03/01/23 11:50 U Benzodiazepines Scrn Not Detected (NotDetected) 03/01/23 11:50 Urine Cocaine Screen Not Detected (NotDetected) 03/01/23 11:50 U Marijuana (THC) Screen Detected (NotDetected) H 03/01/23 11:50 Coronavirus (PCR) Not Detected (Not Detectd) 03/01/23 14:10 03/02/23 11:51 IDENTIFYING DATA: Patient is a , on SSD, 32-year-old female, who lives at home with 2 kids, , in a house HPI: Patient presented to the hospital yesterday and was complaining of homicidal ideations. she has a hx of schizoaffective disorder. ptsd and anxiety. she was positive for THC on her UDS. she has a hx of several inpt hospitalization in t he past. pt also follows up with Dr Solorzano at [facility] for mental health care. she was seen wandering the hallways and spoke with junior copywriter in the office. she explained that she was having acute thoughts of wanting to harm others. she did not specify a target. she states that her anxiety has been worst lately and states that it is "triggering my psychosis". she claims that the buspar has not helping her lately. claims that she has been having increased stress related to her kids. states that she has been feeling overwhelmed at home. claims that her appetite is decreased. he is denying any AH or VH. she is also denying any current SI or HI. She claims that she smokes marijuana regularly and also smokes cigarettes. PAST PSYCHIATRIC HISTORY: Patient states that she was proceeded diagnosed with PTSD, bschizoaffective disorder with psychotic features, and anxiety. She has taken several psychiatric medications in the past. She was last hospitalized in our psychiatric unit in April 2022. The patient follows with [facility]. Patient denies any history of suicide attempts in the past. PMH: Past Medical History: No Reported History History of Any Multi-Drug Resistant Organisms: None Reported Past Surgical History: Section Past Anesthesia/Blood Transfusion Reactions: No Reported Reaction Past Psychological History: Anxiety, Bipolar, PTSD Smoking Status: Current every day smoker Past Alcohol Use History: Occasional Past Drug Use History: Marijuana ALLERGIES: NO KNOWN DRUG ALLERGIES CHEMICAL DEPENDENCY HISTORY: The patient reports that she smokes approximately a third of a pack of cigarettes per day. She denies any alcohol use. She claims that she frequently engages in marijuana use. She denies any illicit drug use. FAMILY PSYCHIATRIC/SUBSTANCE USE HISTORY: The patient reports that her mother had PTSD and her father was bipolar SOCIAL HISTORY: Patient was born and raised in [place]. She is to her Blue since 2017. They have 2 daughters. Although her is recently unemployed, the patient did receive a recent inheritance. She reports the [employer] genaro. She does report a history of incarceration back in 2017 after filing false reports due to believing that we[place] well water was poisoned. No other legal issues or concerns. MENTAL STATUS EXAM: General Appearance: Patient appears to be stated age is alert, directable, and attempts to cooperate. Patient appears to have fair hygiene and grooming. Behavior: Patient is seated without any agitated behavior. Eye contact is appropriate Speech: Patient's speech is fluent and nonpressured. Mood/Affect: Patient reports their mood is stressed out and overwhelmed, affect is congruent and constricted Suicidality/Homicidality: Patient denies having any homicidal ideation intent or plan. Denies any suicidal ideations intent or plan Perceptions: Patient denies any visual hallucinations and denies any auditory hallucinations Though content/process: The patient is goal oriented, logical Memory and concentration: AOX3, grossly intact for the purposes of this session. Can spell "WORLD" backwards Judgment and insight: Fair STRENGTHS/WEAKNESSES: Strength is that the patient has fair insight. Weakness is that the patient has severe mental illness INTELLECT: average IMPRESSIONS: Schizoaffective disorder, bipolar type nicotine dependence Posttraumatic stress disorder Generalized anxiety disorder cannabis use disorder PLAN: -Patient is admitted under voluntary status to MHU for stabilization of psychiatric symptoms and safety. Patient signed adult voluntary form and medication consent and is placed in patient's chart. -Medications : restart Invega 6 mg by mouth at bedtime for psychosis/mood stabilization, Lamictal 100 mg by mouth BID for mood stabilization/depression, continue BuSpar 15 mg by mouth 4 times a day for anxiety, gabapentin 600 mg by mouth 3 times a day, added zoloft 50 mg daily for mood/anxiety -Ativan and Haldol PRN for agitation/aggression -Patient was counselled on substance abuse and desired to cut back on use -Patient was informed of the risks, benefits and side effects of the medication and patient verbally consented to taking the medications. Patient signed med consent form and was placed in chart. -Internal Medicine consult to perform medical evaluation and physical -NRT - nicotine patch -SW on board for discharge planning. Encourage patient to participate in groups to work on coping skills 03/02/23 22:04
--- NOTE | 2023-03-03 04:25 | CONS ---
CONSULTATION CHIEF COMPLAINT: Depression, homicidal thoughts and history of schizoaffective disorder. HISTORY OF PRESENT ILLNESS: This is an another admission for this 32-year-old white female who has had longstanding mental health issues. She states that she was starting to think about hurting people and came to the emergency room. She is otherwise fairly healthy. REVIEW OF SYSTEMS: She denies any headaches, seizures, head injuries, problems with vision and hearing, chest pain, shortness of breath, asthma, hypertension, heart disease, murmurs, rheumatic fever, abdominal pain, nausea, vomiting, melena, hematochezia, jaundice, hepatitis, renal failure, hematuria, frequency, urgency and dysuria, vaginal bleeding, diabetes, etc. Past medical history, family history, and personal and social histories are unremarkable otherwise. She is not allergic to any medications. MEDICATIONS: She is currently on, 1. Metformin 500 mg twice a day. 2. Omeprazole 40 mg once a day. 3. Wegovy injections once a week. 4. Nicotine transdermal patch. 5. Ibuprofen 600 mg twice a day. 6. Flexeril 10 mg 3 times a day as needed. 7. Viberzi 1 tablet twice a day. 8. Oxybutynin 10 mg twice a day. 9. Dicyclomine 20 mg 4 times a day as needed. 10.Depo-Provera. 11.Gabapentin 600 mg 3 times a day. Remainder of her history is unremarkable. She does smoke about a pack of cigarettes a day. Family history and personal and social histories are otherwise unremarkable. PHYSICAL EXAMINATION: VITAL SIGNS: Blood pressure 122/72 with a pulse of 117, respirations 14. She is afebrile. GENERAL: She appeared to be well developed, well nourished, no acute distress. SKIN: Color is normal. SKIN: Warm, dry. LYMPHATICS: Lymph nodes are not enlarged. HEAD, EARS, EYES, NOSE, MOUTH AND THROAT: Normal. NECK: Her neck veins are not distended. Thyroid is not enlarged. CHEST: Clear. CARDIAC: Normal. ABDOMEN: Soft, nontender. EXTREMITIES: Normal. NEUROLOGIC: She is intact. IMPRESSION: 1. Schizoaffective disorder. 2. Suicidal thoughts. RECOMMENDATIONS: None. MMODL / IJN: [id number] /
[2023-03-03] MEDS: GABAPENTIN 300 MG CAP PO SCH ×3 (08:05→20:30)
[2023-03-03] MEDS: SERTRALINE 50 MG TAB PO SCH (08:05)
[2023-03-03] MEDS: lamoTRIgine 100 MG TAB PO SCH ×2 (08:05→20:29)
[2023-03-03] MEDS: busPIRone HCl 5 MG TAB PO SCH ×4 (08:05→20:28)
[2023-03-03] MEDS: metFORMIN 500 MG TAB PO SCH ×2 (08:05→17:00)
[2023-03-03] MEDS: OXYBUTYNIN 10 MG TAB.ER.24 PO SCH ×2 (08:05→20:29)
[2023-03-03] MEDS: NICOTINE 14MG/24HR PATCH TRANSDERM SCH (08:05)
[2023-03-03] MEDS: ELUXADOLINE 75 MG PO SCH ×2 (08:16→17:01)
[2023-03-03] MEDS: MAG HYDROX/AL HYDROX/SIMETH 30 ML CUP PO PRN (08:56)
[2023-03-03] MEDS ORDERED: IBUPROFEN 600 MG TAB PO PRN (10:20)
--- NOTE | 2023-03-03 11:39 | P.PN ---
Progress Note - Text Progress Note Date: 03/03/23 Interval History: Patient was seen [wandering the hallways] and was directable and agreeable to speak with inspector automatic typewriter in the office. She claims that she is doing a bit better today compared to yesterday. States that the thoughts of harming people have been decreasing, not endorsing any target. She states that she feels the Lamictal has been helping being dosed twice a day. Claims that she is still having bouts of anxiety during the day. She wants to remain on the Zoloft as prescribed however we did speak about possibly going up on it over the weekend which she was okay with. She states that she did talk with her who is being supportive of her. Claims to have mildly improving insight and judgment today. Claims to have an improving appetite. Has been noted to be walking the hallways quite a bit. At this time patient denies any suicidal or homical ideations, intent or plan. Patient denies any auditory, visual hallucinations and denies any paranoia or delusions. Patient denies any side effects from the medications and has been compliant with meds. Mental Status Exam: General Appearance: Patient appears to be stated age is alert, directable, and attempts to cooperate. Patient appears to have fair hygiene and grooming. Behavior: Patient is seated without any agitated behavior. Eye contact is appropriate Speech: Patient's speech is fluent and nonpressured. Mood/Affect: Patient reports their mood is stressed out and overwhelmed, affect is congruent and constricted Suicidality/Homicidality: Patient denies having any homicidal ideation intent or plan. Denies any suicidal ideations intent or plan Perceptions: Patient denies any visual hallucinations and denies any auditory hallucinations Though content/process: The patient is goal oriented, logical, focused on discharge. Memory and concentration: AOX3, grossly intact for the purposes of this session Judgment and insight: 2 professional, Fair IMPRESSIONS: Schizoaffective disorder, bipolar type nicotine dependence Posttraumatic stress disorder Generalized anxiety disorder cannabis use disorder PLAN: -Patient is admitted under voluntary status to MHU for stabilization of psychiatric symptoms and safety. Patient signed adult voluntary form and medication consent and is placed in patient's chart. -Medications : Invega 6 mg by mouth at bedtime for psychosis/mood stabilization, Lamictal 100 mg by mouth BID for mood stabilization/depression, continue BuSpar 15 mg by mouth 4 times a day for anxiety, gabapentin 600 mg by mouth 3 times a day, continue zoloft 50 mg daily for mood/anxiety, this can be increased over the weekend if needed for anxiety mainly. -Ativan and Haldol PRN for agitation/aggression -NRT - nicotine patch -SW on board for discharge planning. Encourage patient to participate in groups to work on coping skills. Likely discharge Monday if patient does well over the weekend. fabric worker leader to touch base with patient's to ensure that no guns or weapons in the house.
[2023-03-03] MEDS: MELATONIN 5 MG TABLET PO SCH (20:29)
[2023-03-03] MEDS: PALIPERIDONE 6 MG TAB.ER.24 PO SCH (20:29)
[2023-03-04] MEDS: NICOTINE 14MG/24HR PATCH TRANSDERM SCH (07:58)
[2023-03-04] MEDS: ELUXADOLINE 75 MG PO SCH ×2 (07:59→16:23)
[2023-03-04] MEDS: SERTRALINE 50 MG TAB PO SCH (08:00)
[2023-03-04] MEDS: busPIRone HCl 5 MG TAB PO SCH ×4 (08:00→19:59)
[2023-03-04] MEDS: OXYBUTYNIN 10 MG TAB.ER.24 PO SCH ×2 (08:00→20:00)
[2023-03-04] MEDS: GABAPENTIN 300 MG CAP PO SCH ×3 (08:00→20:00)
[2023-03-04] MEDS: lamoTRIgine 100 MG TAB PO SCH ×2 (08:00→20:00)
[2023-03-04] MEDS: metFORMIN 500 MG TAB PO SCH ×2 (08:00→16:21)
--- NOTE | 2023-03-04 13:34 | P.PN ---
Progress Note - Text Progress Note Date: 03/04/23 Interval History: Patient was seen bedside this AM. Patient states that she is feeling better t isis and says that her mood is "great ". She says that the Zoloft has been helpful and believes that her anxiety is reduced and rates it to be 1 out of 10 currently. However, patient requests if that Zoloft might be increased today and effort to help with anxiety that she experiences at home. She states that she rarely has time for herself while caring for her children at home and has been spending more time resting here than she does at home. As a result, she believes that she might need more help with anxiety when she is at home. Provided psychoeducation on the medication including that it will take a few weeks for the medication to be effective. Patient expresses understanding of this. She is also discouraged from napping during the day and encouraged to sleep more at nighttime. Claims to have an improving appetite. At this time patient denies any suicidal or homicidal ideation, intent or plan. Patient denies any auditory, visual hallucinations and denies any paranoia or delusions. Patient denies any side effects from the medications and has been compliant with meds. Mental Status Exam: General Appearance: Patient appears to be stated age is alert, directable, and attempts to cooperate. Patient appears to have fair hygiene and grooming. Behavior: Patient is seated without any agitated behavior. Eye contact is appropriate Speech: Patient's speech is fluent and nonpressured. Mood/Affect: Patient reports their mood is "great", affect is slightly more excitable Suicidality/Homicidality: Patient denies having any homicidal ideation intent or plan. Denies any suicidal ideations intent or plan Perceptions: Patient denies any visual hallucinations and denies any auditory hallucinations Though content/process: The patient is goal oriented, logical, focused on disc harge. Memory and concentration: AOX3, grossly intact for the purposes of this session Judgment and insight: Fair IMPRESSIONS: Schizoaffective disorder, bipolar type nicotine dependence Posttraumatic stress disorder Generalized anxiety disorder cannabis use disorder PLAN: -Patient is admitted under voluntary status to MHU for stabilization of psychiatric symptoms and safety. Patient signed adult voluntary form and medication consent and is placed in patient's chart. -Medications : Invega 6 mg by mouth at bedtime for psychosis/mood stabilization, Lamictal 100 mg by mouth BID for mood stabilization/depression, continue BuSpar 15 mg by mouth 4 times a day for anxiety, gabapentin 600 mg by mouth 3 times a day, continue zoloft 50 mg daily for mood/anxiety, this can be increased over the weekend if needed for anxiety mainly. -Ativan and Haldol PRN for agitation/aggression -NRT - nicotine patch -SW on board for discharge planning. Encourage patient to participate in groups to work on coping skills. Likely discharge Monday if patient does well over the weekend. transplant worker to touch base with patient's to ensure that no guns or weapons in the house.
[2023-03-04] MEDS: MAG HYDROX/AL HYDROX/SIMETH 30 ML CUP PO PRN (16:21)
[2023-03-04] MEDS: MELATONIN 5 MG TABLET PO SCH (20:00)
[2023-03-04] MEDS: PALIPERIDONE 6 MG TAB.ER.24 PO SCH (20:00)
[2023-03-05] MEDS: MAG HYDROX/AL HYDROX/SIMETH 30 ML CUP PO PRN ×2 (06:43→16:15)
[2023-03-05] MEDS: NICOTINE 14MG/24HR PATCH TRANSDERM SCH (07:53)
[2023-03-05] MEDS: GABAPENTIN 300 MG CAP PO SCH ×3 (07:55→20:01)
[2023-03-05] MEDS: metFORMIN 500 MG TAB PO SCH ×2 (07:55→16:14)
[2023-03-05] MEDS: SERTRALINE 50 MG TAB PO SCH (07:56)
[2023-03-05] MEDS: ELUXADOLINE 75 MG PO SCH ×2 (07:56→16:02)
[2023-03-05] MEDS: busPIRone HCl 5 MG TAB PO SCH ×4 (07:56→20:30)
[2023-03-05] MEDS: OXYBUTYNIN 10 MG TAB.ER.24 PO SCH ×2 (07:56→20:01)
[2023-03-05] MEDS: lamoTRIgine 100 MG TAB PO SCH ×2 (07:56→20:01)
--- NOTE | 2023-03-05 15:54 | P.PN ---
Progress Note - Text Progress Note Date: 03/05/23 Interval History: Patient was seen bedside this AM. Patient states that she is feeling better t isis and says that her mood is "good ". She is noted to appear calmer today. Patient states that she enjoyed discussing stress management and group today and describes several stress management tools which she likes to use at home. She also states that she slept well last night. She denies experiencing overt anxiety or elated mood. She reports eating well and denies any other concerns. At this time patient denies any suicidal or homicidal ideation, intent or plan. Patient denies any auditory, visual hallucinations and denies any paranoia or delusions. Patient denies any side effects from the medications and has been compliant with meds. Mental Status Exam: General Appearance: Patient appears to be stated age is alert, directable, and attempts to cooperate. Patient appears to have fair hygiene and grooming. Behavior: Patient is seated without any agitated behavior. Eye contact is appropriate Speech: Patient's speech is fluent and nonpressured. Mood/Affect: Patient reports their mood is "good", affect is euthymic Suicidality/Homicidality: Patient denies having any homicidal ideation intent or plan. Denies any suicidal ideations intent or plan Perceptions: Patient denies any visual hallucinations and denies any auditory hallucinations Though content/process: The patient is goal oriented, logical, focused on discharge. Memory and concentration: AOX3, grossly intact for the purposes of this session Judgment and insight: Fair IMPRESSIONS: Schizoaffective disorder, bipolar type nicotine dependence Posttraumatic stress disorder Generalized anxiety disorder cannabis use disorder PLAN: -Patient is admitted under voluntary status to [facility] for stabilization of psychiatric symptoms and safety. Patient signed adult voluntary form and medication consent and is placed in patient's chart. -Medications : Invega 6 mg by mouth at bedtime for psychosis/mood stabilization, Lamictal 100 mg by mouth BID for mood stabilization/depression, continue BuSpar 15 mg by mouth 4 times a day for anxiety, gabapentin 600 mg by mouth 3 times a day, continue zoloft 50 mg daily for mood/anxiety - did not increase due to serotonergic impact on bipolar disorder and patient appearing to stabilize well -Ativan and Haldol PRN for agitation/aggression -NRT - nicotine patch -SW on board for discharge planning. Encourage patient to participate in groups to work on coping skills. Likely discharge Monday if patient does well over the weekend. order worker to touch base with patient's to ensure that no guns or weapons in the house.
[2023-03-05] MEDS: MELATONIN 5 MG TABLET PO SCH (20:01)
[2023-03-05] MEDS: PALIPERIDONE 6 MG TAB.ER.24 PO SCH (20:01)
[2023-03-06 07:07] VITALS: BP 107/66; PULSE 141; RESP 17; TEMP 97.9
[2023-03-06] MEDS: LORazepam 1 MG TAB PO PRN (07:07)
[2023-03-06] MEDS: ELUXADOLINE 75 MG PO SCH (07:50)
[2023-03-06] MEDS: SERTRALINE 50 MG TAB PO SCH (07:52)
[2023-03-06] MEDS: metFORMIN 500 MG TAB PO SCH (07:52)
[2023-03-06] MEDS: GABAPENTIN 300 MG CAP PO SCH ×2 (07:52→12:58)
[2023-03-06] MEDS: NICOTINE 14MG/24HR PATCH TRANSDERM SCH (07:52)
[2023-03-06] MEDS: lamoTRIgine 100 MG TAB PO SCH (07:52)
[2023-03-06] MEDS: OXYBUTYNIN 10 MG TAB.ER.24 PO SCH (07:53)
[2023-03-06] MEDS: MAG HYDROX/AL HYDROX/SIMETH 30 ML CUP PO PRN (07:55)
--- NOTE | 2023-03-06 09:34 | P.DS ---
Providers Date of admission: 03/01/23 15:08 Expected date of discharge: 03/06/23 Attending physician: Gabino Stevens MD Consults: 03/01/23 15:44 Consult Physician Routine Consulting Provider: Thomas Ramsay Consult Reason/Comments: H&p Do you want consulting provider notified?: Yes Primary care physician: Thomas Ramsay - Discharge Diagnosis(es) (1) Schizoaffective disorder, bipolar type Current Visit: Yes Status: Acute Priority: High (2) Nicotine dependence Current Visit: Yes Status: Acute Priority: Low (3) PTSD (post-traumatic stress disorder) Current Visit: Yes Status: Acute Priority: Medium (4) Generalized anxiety disorder Current Visit: Yes Status: Acute Priority: High (5) Cannabis use disorder Current Visit: Yes Status: Acute Priority: Low Hospital Course: Admission HPI: Admission note was completed by signwriter "Patient is a , on SSD, 32-year-old female, who lives at home with 2 kids, , in a house. Patient presented to the hospital yesterday and was complaining of homicidal ideations. she has a hx of schizoaffective disorder. ptsd and anxiety. she was positive for THC on her UDS. she has a hx of several inpt hospitalization in t he past. pt also follows up with Dr Solorzano at [facility] for mental health care. she was seen wandering the hallways and spoke with signwriter in the office. she explained that she was having acute thoughts of wanting to harm others. she did not specify a target. she states that her anxiety has been worst lately and states that it is "triggering my psychosis". she claims that the buspar has not helping her lately. claims that she has been having increased stress related to her kids. states that she has been feeling overwhelmed at home. claims that her appetite is decreased. he is denying any AH or VH. she is also denying any current SI or HI. She claims that she smokes marijuana regularly and also smokes cigarettes." Hospital course: Upon admission to the unit patient was directable and agreeable to commence treatment and signed adult voluntary form . Patient got along well with other patients on the unit and followed unit protocol. Patient was compliant with the medications and denied any side effects throughout hospital course. Patient was started on paliperidone by mouth 6 mg daily at bedtime for psychosis/mood stabilization, Lamictal was changed to 100 mg twice a day for mood stabilization/depression, BuSpar was continued at 15 mg 4 times a day for anxiety, patient was continued on gabapentin 600 mg 3 times a day for anxiety, Zoloft was started 50 mg daily for mood/anxiety.. Patient spoke of her stressors and engaged in therapy both group and individual. Patient was also seen by medical team for history and physical exam. Throughout the course of the hospitalization patient gradually improved with regards to mood, anxiety, homiciadal thoughts, sleep and returned back to their baseline level of functioning. On the day of discharge patient denied any suicidal or homicidal ideations intent or plan denied any auditory or visual hallucinations. Patient endorsed wanting to live for her family and health. The patient denied any access to guns or weapons. Patient denied any paranoia and did not endorse any delusions. Patient does have a significant history of substance abuse and was counseled on abstaining from all substances including alcohol and marijuana. Patient elected to do outpatient substance use treatment program through [facility]. Patient was also counseled on the medications and need for regular compliance and was encouraged to follow-up with their outpatient appointment for mental health and also for primary care. Prior to discharge a family meeting will be arranged by transition social worker to answer any questions and ensure safety upon discharge. Mental status exam: General Appearance: Patient appears to be stated age is alert, pleasant, and cooperative. Patient is in no acute distress and has improved hygiene and grooming Behavior: Patient is calmly seated without any agitated behavior. Speech: Patient's speech is fluent and nonpressured. Mood/Affect: Patient reports their mood is "good", affect is congruent and euthymic. Suicidality/Homicidality: Patient denies having any suicidal or homicidal ideation intent or plan. Perceptions: Patient denies any auditory or visual hallucinations. Though content/process: There is no evidence of any delusional thought content and thought process is linear and goal-directed. Memory and concentration: AOX3, grossly intact for the purposes of this session. Can spell "WORLD" backwards correctly. Judgment and insight: improved with guarded prognosis Impression: Schizoaffective disorder, bipolar type Cannabis use disorder PTSD Generalized anxiety disorder Nicotine dependence Plan: -Continue with discharge today as patient has improved and stabilized psychiatrically and is not currently an imminent threat to herself and/or others. Patient will remain at chronically elevated risk for harm to self and/or others due to her impulsivity and substance abuse. -Continue medications: BuSpar 15 mg 4 times a day for anxiety, Neurontin 600 mg 3 times a day for anxiety, Lamictal 100 mg twice a day for mood stabilization/depression, paliperidone by mouth 6 mg daily at bedtime for psychosis/mood stabilization, Zoloft 50 mg daily for mood/anxiety, given a 2 week supply of trazodone 50 mg daily at bedtime when necessary for insomnia. -Patient was counseled on the need for medication compliance and appropriate follow-up at mental health and also primary care for medical issues. Patient verbalized understanding and agreed. -Social work to arrange for and conduct family meeting to ensure safety upon discharge and answer any questions/concerns. Social work also to arrange for patients follow up appointments with [facility] for psychiatric care along with follow up with primary care provider. -Patient counseled on abstaining from recreational drugs and marijuana and alcohol. Was informed/educated on the adverse effects on their physical and mental health. Patient verbally agreed and understood. -Patient was instructed to return to the hospital or seek immediate medical care if their psychiatric or medical symptoms do worsen or reoccur. Allergies Allergy/AdvReac Type Severity Reaction Status Date / Time No Known Allergies Allergy Verified 03/01/23 13:19 Laboratory Results WBC 6.7 k/uL (3.8-10.6) 03/02/23 08:00 RBC 5.38 m/uL (3.80-5.40) 03/02/23 08:00 Hgb 16.5 gm/dL (11.4-16.0) H 03/02/23 08:00 Hct 49.0 % (34.0-46.0) H 03/02/23 08:00 MCV 91.2 fL (80.0-100.0) 03/02/23 08:00 MCH 30.7 pg (25.0-35.0) 03/02/23 08:00 MCHC 33.7 g/dL (31.0-37.0) 03/02/23 08:00 RDW 12.3 % (11.5-15.5) 03/02/23 08:00 Plt Count 307 k/uL (150-450) 03/02/23 08:00 MPV 7.6 03/02/23 08:00 Neutrophils % 64 % 03/02/23 08:00 Lymphocytes % 27 % 03/02/23 08:00 Monocytes % 5 % 03/02/23 08:00 Eosinophils % 3 % 03/02/23 08:00 Basophils % 1 % 03/02/23 08:00 Neutrophils # 4.3 k/uL (1.3-7.7) 03/02/23 08:00 Lymphocytes # 1.8 k/uL (1.0-4.8) 03/02/23 08:00 Monocytes # 0.3 k/uL (0-1.0) 03/02/23 08:00 Eosinophils # 0.2 k/uL (0-0.7) 03/02/23 08:00 Basophils # 0.0 k/uL (0-0.2) 03/02/23 08:00 Sodium 141 mmol/L (137-145) 03/02/23 08:00 Potassium 4.0 mmol/L (3.5-5.1) 03/02/23 08:00 Chloride 103 mmol/L (98-107) 03/02/23 08:00 Carbon Dioxide 26 mmol/L (22-30) 03/02/23 08:00 Anion Gap 12 mmol/L 03/02/23 08:00 BUN 8 mg/dL (7-17) 03/02/23 08:00 Creatinine 0.93 mg/dL (0.52-1.04) 03/02/23 08:00 Est GFR (CKD-EPI)AfAm >90 (>60 ml/min/1.73 sqM) 03/02/23 08:00 Est GFR (CKD-EPI)NonAf 81 (>60 ml/min/1.73 sqM) 03/02/23 08:00 Glucose 95 mg/dL (74-99) 03/02/23 08:[address] Glu mg/dL 93 03/02/23 08:00 Hemoglobin A1c 4.9 % (0.0-6.0) 03/02/23 08:00 Calcium 9.4 mg/dL (8.4-10.2) 03/02/23 08:00 Total Bilirubin 0.6 mg/dL (0.2-1.3) 03/02/23 08:00 AST 19 U/L (14-36) 03/02/23 08:00 ALT 18 U/L (4-34) 03/02/23 08:00 Alkaline Phosphatase 64 U/L (38-126) 03/02/23 08:00 Total Protein 7.7 g/dL (6.3-8.2) 03/02/23 08:00 Albumin 4.5 g/dL (3.5-5.0) 03/02/23 08:00 TSH 0.830 mIU/L (0.465-4.680) 03/02/23 08:00 Urine Color Light Yellow 03/01/23 15:50 Urine Appearance Clear (Clear) 03/01/23 15:50 Urine pH 6.0 (5.0-8.0) 03/01/23 15:50 Ur Specific [place] 1.007 (1.001-1.035) 03/01/23 15:50 Urine Protein Negative (Negative) 03/01/23 15:50 Urine Glucose (UA) Negative (Negative) 03/01/23 15:50 Urine Ketones Negative (Negative) 03/01/23 15:50 Urine Blood Negative (Negative) 03/01/23 15:50 Urine Nitrite Negative (Negative) 03/01/23 15:50 Urine Bilirubin Negative (Negative) 03/01/23 15:50 Urine Urobilinogen <2.0 mg/dL (<2.0) 03/01/23 15:50 Ur Leukocyte Esterase Negative (Negative) 03/01/23 15:50 Urine HCG, Qual Not Detected (Not Detectd) 03/05/23 11:00 Urine Opiates Screen Not Detected (NotDetected) 03/01/23 11:50 Ur Oxycodone Screen Not Detected (NotDetected) 03/01/23 11:50 Urine Methadone Screen Not Detected (NotDetected) 03/01/23 11:50 Ur Propoxyphene Screen Not Detected (NotDetected) 03/01/23 11:50 Ur Barbiturates Screen Not Detected (NotDetected) 03/01/23 11:50 Lamotrigine 1.9 ug/mL (2.0-15.0) L 03/02/23 08:00 U Tricyclic Antidepress Not Detected (NotDetected) 03/01/23 11:50 Ur Phencyclidine Scrn Not Detected (NotDetected) 03/01/23 11:50 Ur Amphetamines Screen Not Detected (NotDetected) 03/01/23 11:50 U Methamphetamines Scrn Not Detected (NotDetected) 03/01/23 11:50 U Benzodiazepines Scrn Not Detected (NotDetected) 03/01/23 11:50 Urine Cocaine Screen Not Detected (NotDetected) 03/01/23 11:50 U Marijuana (THC) Screen Detected (NotDetected) H 03/01/23 11:50 Coronavirus (PCR) Not Detected (Not Detectd) 03/01/23 14:10 Vital Signs Temp 97.9 F 03/06/23 07:05 Pulse 141 H 03/06/23 07:05 Resp 17 03/06/23 07:05 BP 107/66 03/06/23 07:05 Pulse Ox 97 03/06/23 07:05 FiO2 Intake & Output 03/05/23 03/06/23 03/06/23 18:59 06:59 18:59 Weight 84.1 kg Patient Condition at Discharge: Stable Plan - Discharge Summary Discharge Rx Participant: Yes New Discharge Prescriptions: New traZODone HCL [Desyrel] 50 mg PO HS PRN 14 Days #14 tab PRN Reason: Insomnia lamoTRIgine [LaMICtal] 100 mg PO BID 30 Days #30 tab Nicotine 14Mg/24Hr Patch [Habitrol] 1 patch TRANSDERM DAILY 14 Days #14 patch Melatonin 10 mg PO HS 30 Days #60 tab Ibuprofen [Motrin] 600 mg PO Q8H PRN tab PRN Reason: Moderate To Severe Pain (4-10) Sertraline [Zoloft] 50 mg PO DAILY 30 Days #30 tab Continue medroxyPROGESTERone [Depo-Provera] 150 mg IM Q90D Gabapentin 600 mg PO TID@0800,1200,2000 Oxybutynin Chloride [oxyBUTYnin chloride ER] 10 mg PO BID metFORMIN HCL [Glucophage] 500 mg PO BID@0800,1600 Semaglutide [Wegovy] 0.5 mg SQ TU busPIRone HCL 15 mg PO QID@08,12,16,20 30 Days #120 tab Paliperidone [Invega] 6 mg PO HS #30 tab Omeprazole [PriLOSEC] 40 mg PO DAILY PRN PRN Reason: Gi Upset Eluxadoline [Viberzi] 75 mg PO BID-W/MEALS Discontinued Ondansetron [Zofran] 4 mg PO Q8HR PRN PRN Reason: Nausea And Vomiting lamoTRIgine [LaMICtal] 200 mg PO DAILY Discharge Medication List Gabapentin 600 mg PO TID@0800,1200,2000 07/30/22 [History] medroxyPROGESTERone [Depo-Provera] 150 mg IM Q90D 07/30/22 [History] Eluxadoline [Viberzi] 75 mg PO BID-W/MEALS 03/01/23 [History] Omeprazole [PriLOSEC] 40 mg PO DAILY PRN 03/01/23 [History] Oxybutynin Chloride [oxyBUTYnin chloride ER] 10 mg PO BID 03/01/23 [History] Semaglutide [Wegovy] 0.5 mg SQ TU 03/01/23 [History] metFORMIN HCL [Glucophage] 500 mg PO BID@0800,1600 03/01/23 [History] Ibuprofen [Motrin] 600 mg PO Q8H PRN tab 03/06/23 [Rx] Melatonin 10 mg PO HS 30 Days #60 tab 03/06/23 [Rx] Nicotine 14Mg/24Hr Patch [Habitrol] 1 patch TRANSDERM DAILY 14 Days #14 patch 03/06/23 [Rx] Paliperidone [Invega] 6 mg PO HS #30 tab 03/06/23 [Rx] Sertraline [Zoloft] 50 mg PO DAILY 30 Days #30 tab 03/06/23 [Rx] busPIRone HCL 15 mg PO QID@08,12,16,20 30 Days #120 tab 03/06/23 [Rx] lamoTRIgine [LaMICtal] 100 mg PO BID 30 Days #30 tab 03/06/23 [Rx] traZODone HCL [Desyrel] 50 mg PO HS PRN 14 Days #14 tab 03/06/23 [Rx] Follow up Appointment(s)/Referral(s): [facility] [Outside] - 03/10/23 10:00 am (03/10/2023 10:00AM - 11:00AM FL[facility] 03/16/2023 11:00AM - 12:00PM Thomas Helton MD [Primary Care Provider] - 1-2 days Activity/Diet/Wound Care/Special Instructions: Avoid the use of street drugs and alcohol. Take all medications as prescribed. When you are in need of refills on your medications, please contact your medical provider and/or outpatient psychiatrist to have this done. Please go to scheduled outpatient appointments for aftercare treatment. If symptoms return or become worse, call the crisis line at and/or go to the nearest emergency room for evaluation. Discharge Disposition: HOME SELF-CARE
[2023-03-06] MEDS: busPIRone HCl 5 MG TAB PO SCH ×2 (10:32→12:57)
[2023-03-07] MEDS ORDERED: NON FORMULARY DRUG (Semaglutide [Wegovy] 0.5 MG/0.5 ML Each) SQ SCH (09:00)
== END 2023-03-06 13:08 | disposition home or self-care (01) | DRG 885 ==
LOC: EC 11:24 → 3MHU 15:08
PROVIDERS: ADMIT Psychiatry & Neurology Psychiatry; ATTEND Psychiatry & Neurology Psychiatry
DX: F25.0 Schizoaffective disorder, bipolar type (principal); F12.90 Cannabis use, unspecified, uncomplicated; F17.200 Nicotine dependence, unspecified, uncomplicated; F41.1 Generalized anxiety disorder; F43.10 Post-traumatic stress disorder, unspecified; R45.850 Homicidal ideations; Z79.84 Long term (current) use of oral hypoglycemic drugs; Z79.899 Other long term (current) drug therapy; E11.9 Type 2 diabetes mellitus without complications; Z20.822 Contact with and (suspected) exposure to COVID-19
CPT/HCPCS: 80053; 80175; 80306; 81003; 81025; 82075; 83036; 84443; 85025; 87635; 99285

== ENCOUNTER 2023-05-13 08:42 | Observation (INO) | payer BC, OTHER ==
--- NOTE | 2023-05-13 09:04 | ED ---
Psych HPI - General Chief Complaint: Psychiatric Symptoms Stated Complaint: Overdose Time Seen by Provider: 05/13/23 08:52 Source: patient, police, RN notes reviewed Mode of arrival: ambulatory - History of Present Illness Initial Comments: 32-year-old female history depression who states she took a handful of approximately 20 tablets of different medications that she is on his attempt to hurt herself. She states she still depressed and suicidal. He also states that in route she threw up several times with left particular matter and pill fragments. She at this time feels depressed but does not have any complaints of fevers chills or sweats he is currently is not nauseated. Patient is here under petition by police. No other current complaints or modifying factors MD Complaint: suicidal ideation, feels depressed - Related Data Home Medications Medication Instructions Recorded Confirmed Gabapentin 600 mg PO TID@0800,1200,2000 07/30/22 03/01/23 medroxyPROGESTERone [Depo-Provera] 150 mg IM Q90D 07/30/22 03/01/23 Eluxadoline [Viberzi] 75 mg PO BID-W/MEALS 03/01/23 03/01/23 Omeprazole [PriLOSEC] 40 mg PO DAILY PRN 03/01/23 03/01/23 Oxybutynin Chloride [oxyBUTYnin 10 mg PO BID 03/01/23 03/01/23 chloride ER] Semaglutide [Wegovy] 0.5 mg SQ TU 03/01/23 03/01/23 metFORMIN HCL [Glucophage] 500 mg PO BID@0800,1600 03/01/23 03/01/23 Previous Rx's Medication Instructions Recorded Ibuprofen [Motrin] 600 mg PO Q8H PRN tab 03/06/23 Melatonin 10 mg PO HS 30 Days #60 tab 03/06/23 Nicotine 14Mg/24Hr Patch [Habitrol] 1 patch TRANSDERM DAILY 14 Days 03/06/23 #14 patch Paliperidone [Invega] 6 mg PO HS #30 tab 03/06/23 Sertraline [Zoloft] 50 mg PO DAILY 30 Days #30 tab 03/06/23 busPIRone HCL 15 mg PO QID@08,12,16,20 30 Days 03/06/23 #120 tab lamoTRIgine [LaMICtal] 100 mg PO BID 30 Days #30 tab 03/06/23 traZODone HCL [Desyrel] 50 mg PO HS PRN 14 Days #14 tab 03/06/23 Allergies Allergy/AdvReac Type Severity Reaction Status Date / Time No Known Allergies Allergy Verified 05/13/23 08:49 Review of Systems ROS Statement: Those systems with pertinent positive or pertinent negative responses have been documented in the HPI. ROS Other: All systems not noted in ROS Statement are negative. Past Medical History Past Medical History: No Reported History History of Any Multi-Drug Resistant Organisms: None Reported Past Surgical History: Section Additional Past Surgical History / Comment(s): x 2 Past Anesthesia/Blood Transfusion Reactions: No Reported Reaction Past Psychological History: Anxiety, Bipolar, PTSD Smoking Status: Current every day smoker Past Alcohol Use History: None Reported Past Drug Use History: Marijuana - Past Family History Father History Unknown: Yes Family Medical History: Chest Pain / Angina, Congestive Heart Failure (CHF) General Exam - General Exam Comments Initial Comments: This is a well-developed well-nourished awake alert oriented 4 female Limitations: no limitations General appearance: alert, in no apparent distress Head exam: Present: atraumatic, normocephalic, normal inspection Eye exam: Present: normal appearance, PERRL, EOMI. Absent: scleral icterus, conjunctival injection, periorbital swelling ENT exam: Present: normal exam, mucous membranes moist Neck exam: Present: normal inspection, full ROM, other (No stridor JVD or b ruits). Absent: tenderness, meningismus, lymphadenopathy Respiratory exam: Present: normal lung sounds bilaterally. Absent: respiratory distress, wheezes, rales, rhonchi, stridor Cardiovascular Exam: Present: regular rate, normal rhythm, normal heart sounds. Absent: systolic murmur, diastolic murmur, rubs, gallop, clicks GI/Abdominal exam: Present: soft, normal bowel sounds. Absent: distended, tenderness, guarding, rebound, rigid Extremities exam: Present: normal inspection, full ROM, normal capillary refill. Absent: tenderness, pedal edema, joint swelling, calf tenderness Back exam: Present: normal inspection Neurological exam: Present: alert, oriented X3, CN II-XII intact Psychiatric exam: Present: depressed, flat affect, suicidal ideation Skin exam: Present: warm, dry, intact, normal color. Absent: rash Course Vital Signs 05/13/23 05/13/23 08:46 09:23 Temperature 98.7 F Pulse Rate 104 H 83 Respiratory 18 16 Rate Blood Pressure 122/68 111/66 O2 Sat by Pulse 100 99 Oximetry Procedures - Restraint - Face to Face Restraint Occurrence 1 Patient's Immediate Situation: Endangers self safety, Endangers others' safety Patient's Reaction to the Intervention: Uncooperative, Angry, Depressed, Hostile, Belligerent, Aggressive, Restless Patient's Medical & Behavioral Condition: Agitated, Depressed Need to Continue or Terminate Restraint or Seclusion: Continue Need to Continue or Terminate Restraint/Seclusion - Comment: Patient continues be hostile she did try to flee the emergency department she did slip and fall she sustained an abrasion to her right knee. She is uncooperative. She is aware that she is under please petition and she also did overdose on medication and did demonstrate and voice suicidal thoughts and idea tion. She is uncooperative with staff Face to Face Eval of Restraint Date: 05/13/23 Face to Face Eval of Restraint Time: 10:28 Medical Decision Making - Medical Decision Making The patient is been resting comfortably since medication were administered earlier. Due to the overdose situation patient will be medically admitted with psychiatry consult in the a.m. Per poison control the patient's to be monitored at this time no other actions.Was pt. sent in by a medical professional or institution ([facility], [facility], urgent care, hospital, or senior living...) When possible be specific @ -No Did you speak to anyone other than the patient for history (EMS, parent, family, police, friend...)? What history was obtained from this source @ -The patient's Did you review nursing and triage notes (agree or disagree)? Why? @ -I reviewed and agree with nursing and triage notes Were old charts reviewed (outside hosp., previous admission, EMS record, old EKG, old radiological studies, urgent care reports/EKG's, senior living records)? Report findings @ -No old charts were reviewed Differential Diagnosis (chest pain, altered mental status, abdominal pain women, abdominal pain men, vaginal bleeding, weakness, fever, dyspnea, syncope, headache, dizziness, GI bleed, back pain, seizure, CVA, palpatations, mental health, musculoskeletal)? @ -Drug overdose, suicidal ideation and attempt EKG interpreted by me (3pts min.). @ -As above EKG showed a sinus rhythm at 98 a ND interval 147 QRS duration 9070 QT since QTC 337/392 possible left atrial enlargement and complete right bundle-branch block low-voltage left anterior fascicular block X-rays interpreted by me (1pt min.). @ -None done CT interpreted by me (1pt min.). @ -None done U/S interpreted by me (1pt. min.). @ -None done What testing was considered but not performed or refused? (CT, X-rays, U/S, labs)? Why? @ -None What meds were considered but not given or refused? Why? @ -None Did you discuss the management of the patient with other professionals (professionals i.e. , PA, [employer], lab, RT, psych nurse, social work instructor, counter clerk, teacher, first officer and flight instructor, casework specialist)? Give summary @ -Dr. Bruno who did see the patient in emergency department Was smoking cessation discussed for >3mins.? @ -No Was critical care preformed (if so, how long)? @ -No Were there social determinants of health that impacted care today? How? (Homelessness, low income, unemployed, alcoholism, drug addiction, transportation, low edu. Level, literacy, decrease access to med. care, senior living, rehab)? @ -No Was there de-escalation of care discussed even if they declined (Discuss DNR or withdrawal of care, Hospice)? DNR status @ -No What co-morbidities impacted this encounter? (DM, HTN, Smoking, COPD, CAD, Cancer, CVA, ARF, Chemo, Hep., AIDS, mental health diagnosis, sleep apnea, morbid obesity)? @ -Depression Was patient admitted / discharged? Hospital course, mention meds given and r oute, prescriptions, significant lab abnormalities, going to OR and other pertinent info. @ -hospital course the patient was admitted to the medical floor for further monitoring with consultation by psychiatry tomorrow suicidal watch Undiagnosed new problem with uncertain prognosis? @ -No Drug Therapy requiring intensive monitoring for toxicity (Heparin, Nitro, Insulin, Cardizem)? @ -No Were any procedures done? @ -No Diagnosis/symptom? @ -Drug overdose, depression, suicidal attempt Acute, or Chronic, or Acute on Chronic? @ -Acute Uncomplicated (without systemic symptoms) or Complicated (systemic symptoms)? @ -default Side effects of treatment? @ -No Exacerbation, Progression, or Severe Exacerbation? @ -No Poses a threat to life or bodily function? How? (Chest pain, USA, DE, pneumonia, PE, COPD, DKA, ARF, appy, cholecystitis, CVA, Diverticulitis, Homicidal, Suicidal, threat to staff... and all critical care pts) @ -No - Lab Data Result diagrams: 05/13/23 09:05/13/23 09: Lab Results 05/13/23 05/13/23 05/13/23 Range/Units : 09: 09: WBC 9.2 (3.8-10.6) k/uL RBC 5.18 (3.80-5.40) m/uL Hgb 15.7 (11.4-16.0) gm/dL Hct 48.4 H (34.0-46.0) % MCV 93.4 (80.0-100.0) fL MCH 30.2 (25.0-35.0) pg MCHC 32.4 (31.0-37.0) g/dL RDW 12.9 (11.5-15.5) % Plt Count 315 (150-450) k/uL MPV 8.1 Neutrophils % 67 % Lymphocytes % 22 % Monocytes % 4 % Eosinophils % 4 % Basophils % 0 % Neutrophils # 6.2 (1.3-7.7) k/uL Lymphocytes # 2.1 (1.0-4.8) k/uL Monocytes # 0.4 (0-1.0) k/uL Eosinophils # 0.4 (0-0.7) k/uL Basophils # 0.0 (0-0.2) k/uL PT (9.0-12.0) sec INR (<1.2) Sodium (137-145) mmol/L Potassium (3.5-5.1) mmol/L Chloride (98-107) mmol/L Carbon Dioxide (22-30) mmol/L Anion Gap mmol/L BUN (7-17) mg/dL Creatinine (0.52-1.04) mg/dL Est GFR (CKD-EPI)AfAm (>60 ml/min/1.73 sqM) Est GFR (CKD-EPI)NonAf (>60 ml/min/1.73 sqM) Glucose (74-99) mg/dL Osmolality (280-301) mosm/kg Calcium (8.4-10.2) mg/dL Total Bilirubin (0.2-1.3) mg/dL AST (14-36) U/L ALT (4-34) U/L Alkaline Phosphatase (38-126) U/L Creatine Kinase (30-135) U/L Total Protein (6.3-8.2) g/dL Albumin (3.5-5.0) g/dL Lipase (23-300) U/L Urine HCG, Qual Not Detected (Not Detectd) Salicylates mg/dL Urine Opiates Screen Not Detected (NotDetected) Ur Oxycodone Screen Not Detected (NotDetected) Urine Methadone Screen Not Detected (NotDetected) Ur Propoxyphene Screen Not Detected (NotDetected) Acetaminophen ug/mL Ur Barbiturates Screen Not Detected (NotDetected) U Tricyclic Antidepress Not Detected (NotDetected) Ur Phencyclidine Scrn Not Detected (NotDetected) Ur Amphetamines Screen Not Detected (NotDetected) U Methamphetamines Scrn Not Detected (NotDetected) U Benzodiazepines Scrn Not Detected (NotDetected) Urine Cocaine Screen Not Detected (NotDetected) U Marijuana (THC) Screen Detected H (NotDetected) 05/13/23 05/13/23 Range/Units 09:23 09:23 WBC (3.8-10.6) k/uL RBC (3.80-5.40) m/uL Hgb (11.4-16.0) gm/dL Hct (34.0-46.0) % MCV (80.0-100.0) fL MCH (25.0-35.0) pg MCHC (31.0-37.0) g/dL RDW (11.5-15.5) % Plt Count (150-450) k/uL MPV Neutrophils % % Lymphocytes % % Monocytes % % Eosinophils % % Basophils % % Neutrophils # (1.3-7.7) k/uL Lymphocytes # (1.0-4.8) k/uL Monocytes # (0-1.0) k/uL Eosinophils # (0-0.7) k/uL Basophils # (0-0.2) k/uL PT 10.6 (9.0-12.0) sec INR 1.0 (<1.2) Sodium 141 (137-145) mmol/L Potassium 4.0 (3.5-5.1) mmol/L Chloride 108 H (98-107) mmol/L Carbon Dioxide 21 L (22-30) mmol/L Anion Gap 12 mmol/L BUN 4 L (7-17) mg/dL Creatinine 0.71 (0.52-1.04) mg/dL Est GFR (CKD-EPI)AfAm >90 (>60 ml/min/1.73 sqM) Est GFR (CKD-EPI)NonAf >90 (>60 ml/min/1.73 sqM) Glucose 86 (74-99) mg/dL Osmolality 289 (280-301) mosm/kg Calcium 9.2 (8.4-10.2) mg/dL Total Bilirubin 0.3 (0.2-1.3) mg/dL AST 19 (14-36) U/L ALT 14 (4-34) U/L Alkaline Phosphatase 79 (38-126) U/L Creatine Kinase 57 (30-135) U/L Total Protein 7.4 (6.3-8.2) g/dL Albumin 4.4 (3.5-5.0) g/dL Lipase 112 (23-300) U/L Urine HCG, Qual (Not Detectd) Salicylates <1.0 mg/dL Urine Opiates Screen (NotDetected) Ur Oxycodone Screen (NotDetected) Urine Methadone Screen (NotDetected) Ur Propoxyphene Screen (NotDetected) Acetaminophen <10.0 ug/mL Ur Barbiturates Screen (NotDetected) U Tricyclic Antidepress (NotDetected) Ur Phencyclidine Scrn (NotDetected) Ur Amphetamines Screen (NotDetected) U Methamphetamines Scrn (NotDetected) U Benzodiazepines Scrn (NotDetected) Urine Cocaine Screen (NotDetected) U Marijuana (THC) Screen (NotDetected) - EKG Data -: EKG Interpreted by Me EKG Comments: EKG interpreted by me sinus rhythm a 98. Interval 147 QRS duration 97 daily since QTC 337/392 possible left atrial enlargement and incomplete right bundle- branch block pattern with anterior fascicular block this is compared with an EKG dated 05/06/22 Disposition Clinical Impression: Drug overdose, Attempted suicide, Depression Disposition: ADMITTED IP TO THIS HOSP Condition: Fair Referrals: Thomas Ramsay MD [Primary Care Provider] - 1-2 days Decision Date: 05/13/23 Decision Time: 14:00
[2023-05-13 09:57] LABS: Basophils % (A) 0 %; Eosinophils # (A) 0.4 k/uL (0-0.7); Eosinophils % (A) 4 %; HCT 48.4 % (34.0-46.0); HGB 15.7 gm/dL (11.4-16.0); Lymphocytes # (A) 2.1 k/uL (1.0-4.8); Lymphocytes % (A) 22 %; MCH 30.2 pg (25.0-35.0); MCHC 32.4 g/dL (31.0-37.0); MCV 93.4 fL (80.0-100.0); Mean Platelet Volume 8.1; Monocytes # (A) 0.4 k/uL (0-1.0); Monocytes % (A) 4 %; Neutrophils # (A) 6.2 k/uL (1.3-7.7); Neutrophils % (A) 67 %; Platelet Count 315 k/uL (150-450); RBC 5.18 m/uL (3.80-5.40); RDW 12.9 % (11.5-15.5); WBC 9.2 k/uL (3.8-10.6)
[2023-05-13 10:02] LABS: Prothrombin Time 10.6 sec (9.0-12.0)
[2023-05-13 10:15] LABS: ALT 14 U/L (4-34); AST 19 U/L (14-36); Acetaminophen <10.0 ug/mL; African American GFR (CKD) >90 (>60 ml/min/1.73 sqM); Albumin 4.4 g/dL (3.5-5.0); Alkaline Phosphatase 79 U/L (38-126); Anion Gap 12 mmol/L; Blood Urea Nitrogen 4 mg/dL (7-17); Calcium 9.2 mg/dL (8.4-10.2); Carbon Dioxide 21 mmol/L (22-30); Chloride 108 mmol/L (98-107); Creatine Kinase 57 U/L (30-135); Glucose 86 mg/dL (74-99); Lipase 112 U/L (23-300); Non-African American GFR(CKD) >90 (>60 ml/min/1.73 sqM); Salicylate <1.0 mg/dL; Sodium 141 mmol/L (137-145); Total Bilirubin 0.3 mg/dL (0.2-1.3); Total Protein 7.4 g/dL (6.3-8.2)
[2023-05-13] MEDS ORDERED: LORazepam 2 MG/ML INJ IV STA (10:22)
[2023-05-13] MEDS ORDERED: HALOPERIDOL LACTATE 5 MG/ML 1 ML VIAL IVP STA (10:23)
[2023-05-13] MEDS ORDERED: diphenhydrAMINE 50 MG/ML 1 ML VIAL IVP STA (10:23)
[2023-05-13 10:46] LABS: Amphetamine Screen,Urine Not Detected (NotDetected); Barbiturate Screen,Urine Not Detected (NotDetected); Benzodiazepines Screen,Urine Not Detected (NotDetected); Cocaine Screen,Urine Not Detected (NotDetected); Methadone Screen, Urine Not Detected (NotDetected); Opiate Screen,Urine Not Detected (NotDetected); Oxycodone Screen, Urine Not Detected (NotDetected); Phencyclidine Screen,Urine Not Detected (NotDetected); Tricyclic Antidepressant,Urine Not Detected (NotDetected); Urn Cannabinoid Scrn Detected (NotDetected)
[2023-05-13] MEDS ORDERED: NALOXONE 0.4 MG/ML 1 ML VIAL IV PRN (14:21)
--- NOTE | 2023-05-13 20:24 | HP ---
HISTORY AND PHYSICAL CHIEF COMPLAINT: Overdose. HISTORY OF PRESENT ILLNESS: This is a 32-year-old woman with a past medical history of anxiety, bipolar, PTSD, was brought to the [facility] Emergency Room after taking a handful of 20 tablets of different medications apparently in an attempt to hurt herself, the patient is depressed, but however, in the hospital, the patient tried to run away and asked to be sedated. Currently, the patient unable to give a coherent history. Most of the history taken by discussion with the ER physician and review of chart and discussion with staff also. PAST MEDICAL HISTORY: Anxiety, bipolar, PTSD. The rest of the history and rest of the chart is also reviewed. HOME MEDICATIONS: Reviewed include trazodone, doses and rest of medications reviewed. ALLERGIES: None. Family history, social history, review of systems could not be taken because the patient is sedated. PHYSICAL EXAMINATION: VITAL SIGNS: Pulse is 83, blood pressure 111/86, respirations 16. HEENT: Conjunctivae normal. NECK: No JVD. CARDIOVASCULAR: S1, S2. RESPIRATIONS: Breath sounds diminished at the bases. ABDOMEN: Soft, nontender. LEGS: No edema. NERVOUS SYSTEM: Sedated. SKIN: No ulcer, rash, or bleeding. JOINTS: No active deforming arthropathy. LABORATORY DATA: Noted. ASSESSMENT: 1. Status post overdose of medications for depression. 2. Anxiety. 3. Bipolar. 4. Posttraumatic stress disorder. 5. History of nicotine dependence. 6. Polysubstance abuse. RECOMMENDATIONS AND DISCUSSION: This is a 32-year-old woman, who presented with multiple complex medical issues, we will monitor the patient closely. I would recommend to continue current management and symptomatic treatment. The labs are acceptable. I would recommend repeat labs. Psychiatric consultation. Suicide precautions. Prognosis guarded. Further recommendations to follow. MMODL / IJN: [id number] /
[2023-05-13] MEDS ORDERED: HALOPERIDOL LACTATE 5 MG/ML 1 ML VIAL IM PRN (20:28)
[2023-05-14] MEDS: LORazepam 2 MG/ML INJ IV PRN ×3 (02:50→12:33)
[2023-05-14 07:51] VITALS: RESP 16
[2023-05-14 09:38] LABS: ALT 10 U/L (8-44); AST 13 U/L (13-35); Albumin 4.1 d/dL (3.8-4.9); Albumin/Globulin Ratio 1.95 Ratio (1.60-3.17); Alkaline Phosphatase 89 U/L (41-126); BUN/Creat Ratio 5.25 Ratio (12.00-20.00); Blood Urea Nitrogen 4.2 mg/dL (9.0-27.0); Carbon Dioxide 22.2 mmol/L (21.6-31.8); Chloride 111 mmol/L (96-109); Globulin 2.1 d/dL (1.6-3.3); Glucose 87 mg/dL (70-110); Potassium 4.1 mmol/L (3.5-5.5); Sodium 145 mmol/L (135-145); Total Bilirubin 0.3 mg/dL (0.3-1.2); Total Protein 6.2 d/dL (6.2-8.2)
[2023-05-14 09:55] LABS: Basophils # (A) 0.04 X 10*3/uL (0.00-0.10); Basophils % (A) 0.4 %; Eosinophils # (A) 0.39 X 10*3/uL (0.04-0.35); Eosinophils % (A) 4.2 %; HCT 44.4 % (37.2-46.3); HGB 14.6 d/dL (12.0-15.0); Lymphocytes # (A) 2.07 X 10*3/uL (0.90-5.00); MCH 30.4 pg (27.0-32.0); MCHC 32.9 d/dL (32.0-37.0); MCV 92.5 FL (80.0-97.0); Mean Platelet Volume 10.4 FL (9.5-12.2); Monocytes # (A) 0.48 X 10*3/uL (0.20-1.00); Monocytes % (A) 5.1 %; NRBC Per 100 WBC 0 X 10*3/uL (0.00-0.01); Neutrophils # (A) 6.39 X 10*3/uL (1.80-7.70); Neutrophils % (A) 68.1 %; Platelet Count 308 X 10*3/uL (140-440); RDW 12.9 % (11.5-14.5); WBC 9.39 X 10*3/uL (4.50-10.00)
--- NOTE | 2023-05-14 11:05 | P.CN ---
Psychiatric Consult - . Consult date: 05/14/23 Consult:: 05/14/23 10:58 This is a psychiatric consultation on Kinsey Talley who is a 32-year-old female with long history of bipolar disorder Patient was hospitalized on the medical floor after patient had taken about 20 tablets of different medications that she has been prescribed Patient denies that she had preplanned a suicide attempt but states that he was more of an impulsive acting out She says that she is currently going through a medication management by her psychiatrist at the outpatient clinic who feels that the Zoloft was making her manic She says that she has been taken off the Zoloft and feels that she may be experiencing withdrawal symptoms She admits that she's also been feeling more anxious and agitated Patient also smokes cannabis on a daily basis and does not feel that the cannabis is a troubling or anxiety anymore Patient states that she also takes gabapentin 600 mg 3 times a day without much benefit She admits feeling frustrated mood he impulsive agitated and restless She says that she is in agreement that she needs to come to the psychiatric unit voluntarily and that she does need help Patient's current psychotropic medications include Trazodone 50 mg daily at bedtime when necessary Lamotrigine 100 mg twice a day Buspirone 15 mg 4 times a day Invega 6 mg daily at bedtime And gabapentin 600 mg 3 times a day Past history personal social history has not been covered in detail at this time and will be collected at a later time when patient is transferred to the psychiatric unit Patient at this time reporting that she currently lives with her family and has 2 young children one of whom has her birthday today Mental status examination: Mental status examination: General Appearance: Patient appears to be stated age is alert, directable, and attempts to cooperate. Patient appears to have slightly disheveled hygiene and grooming. Behavior: Patient was laying down without any agitated behavior. Normal psychomotor activity. Eye contact is appropriate. Speech: Patient's speech is fluent and nonpressured. Mood/Affect: Patient reports her mood is depressed, affect is congruent to thought processes Suicidality/Homicidality: Patient denies suicidal ideation. She reports no intention or plan at this time. She denies any homicidal ideation, intention, and/or plan. Perceptions: Patient denies any visual hallucinations and denies any auditory hallucinations Though content/process: Remains projective and paranoid Thinking is delusional Memory and concentration: AOX3, grossly intact for the purposes of this session. Can spell "WORLD" backwards Judgment and insight: Fair However nursing reports that the patient had been villanueva temperamental easily agitated and has talked about suicide Diagnostic impression: Bipolar disorder mixed type Personality disorder unspecified STRENGTHS/WEAKNESSES: Strength is that the patient is resilient. INTELLECT: average PLAN: -Patient is recommended for admission under voluntary status to MHU for stabilization of psychiatric symptoms and safety. -Medications : Would recommend continuation of her home medications We'll also add Klonopin 1 mg twice a day for anxiety and restlessness Haldol and Vistaril PRN for agitation/aggression -Patient was informed of the risks, benefits and side effects of the medication and patient verbally consented to taking the medications. Patient signed med consent form and was placed in chart. -Internal Medicine consult to perform medical evaluation and physical. -SW on board for discharge planning. Encourage patient to participate in groups to work on coping skills. Patient was informed that Dr. more or Dr jiménez will be taking over the patient care as of tomorrow maintain supportive care and safety precautions and suicide precautions Darek Trae Spencer 05/14/2023
[2023-05-14 15:24] VITALS: BP 109/77; PULSE 91; TEMP 98.4
--- NOTE | 2023-05-15 03:28 | DS ---
DISCHARGE SUMMARY CHIEF COMPLAINT: Major depression and overdose. HISTORY OF PRESENT ILLNESS/PHYSICAL EXAM: Details of this lady's history and physical can be found in the initial workup. LABORATORY STUDIES: While she was in the hospital, she had laboratory studies, details of which can be found in the laboratory section of her chart. COURSE IN THE HOSPITAL: After admission, she was placed on bedrest, started on intravenous fluids, and placed on suicide precautions. She was very upset because 2 weeks ago, [facility] and she believed this is what led to her quick decline in the depression with suicidal thoughts. She was cleared by Psychiatry to go to [facility]. FINAL DIAGNOSES: 1. Drug overdose and suicide attempt. 2. Major depression. OPERATIONS: None. CONSULTATIONS: Psychiatry. She is improved. IRENA / ABAD: [id number] /
== END 2023-05-14 19:25 ==
LOC: EC 08:42 → 6NMEDSUR 14:21 → UNDODISOB 05-14 17:30
PROVIDERS: ADMIT Family Medicine; ATTEND Family Medicine
DX: T50.902A Poisoning by unspecified drugs, medicaments and biological substances, intentional self-harm, initial encounter (principal); F31.9 Bipolar disorder, unspecified; F43.10 Post-traumatic stress disorder, unspecified; F41.9 Anxiety disorder, unspecified; F60.9 Personality disorder, unspecified; F19.10 Other psychoactive substance abuse, uncomplicated; F17.200 Nicotine dependence, unspecified, uncomplicated; Z79.3 Long term (current) use of hormonal contraceptives; Z79.84 Long term (current) use of oral hypoglycemic drugs; Z79.899 Other long term (current) drug therapy; Z98.891 History of uterine scar from previous surgery; Z82.49 Family history of ischemic heart disease and other diseases of the circulatory system
CPT/HCPCS: 96376; 82075; 96372; 96374; 96375; 99285; 36415; 93005; 83930; 80053 ×2; 82550; 83690; 85025 ×2; 85610; 81025; 80306; 80143; 87635; 80179; G0378 ×2; J2060 ×2; J1200; J1630 ×2

== ENCOUNTER 2023-05-14 17:32 | Inpatient (IN) | payer BC, MEDICAID ==
[2023-05-14] MEDS ORDERED: MAG HYDROX/AL HYDROX/SIMETH 30 ML CUP PO PRN (19:30)
[2023-05-14] MEDS ORDERED: MAGNESIUM HYDROXIDE 2,400 MG/30 ML CUP PO PRN (19:30)
[2023-05-14] MEDS ORDERED: ACETAMINOPHEN TAB 325 MG TAB PO PRN (19:30)
[2023-05-14] MEDS ORDERED: polyethylene glycoL 3350 17 GM POWD.PACK PO PRN (19:33)
[2023-05-14] MEDS ORDERED: traZODone HCL 50 MG TAB PO PRN (19:33)
[2023-05-14] MEDS ORDERED: PANTOPRAZOLE 40 MG TABLET PO PRN (19:33)
[2023-05-14] MEDS ORDERED: IBUPROFEN 600 MG TAB PO PRN (19:33)
[2023-05-14] MEDS ORDERED: hydrOXYzine pamoate 25 MG CAP PO PRN (19:37)
[2023-05-14] MEDS ORDERED: medroxyPROGESTERone 150 MG/ML 1ML VIAL IM SCH (19:45)
[2023-05-14] MEDS: GABAPENTIN 300 MG CAP PO SCH (20:24)
[2023-05-14] MEDS: PALIPERIDONE 6 MG TAB.ER.24 PO SCH (20:24)
[2023-05-14] MEDS: lamoTRIgine 100 MG TAB PO SCH (20:25)
[2023-05-14] MEDS: busPIRone HCl 10 MG TAB PO SCH (20:25)
[2023-05-14] MEDS: metFORMIN 500 MG TAB PO SCH (20:25)
[2023-05-14] MEDS: MELATONIN 5 MG TABLET PO SCH (20:25)
[2023-05-14] MEDS: NICOTINE 21MG/24HR PATCH TRANSDERM SCH (20:37)
[2023-05-15] MEDS: NICOTINE 21MG/24HR PATCH TRANSDERM SCH (08:18)
[2023-05-15] MEDS: busPIRone HCl 10 MG TAB PO SCH (08:19)
[2023-05-15] MEDS: metFORMIN 500 MG TAB PO SCH ×3 (08:19→20:01)
[2023-05-15] MEDS: lamoTRIgine 100 MG TAB PO SCH ×2 (08:19→19:59)
[2023-05-15] MEDS: GABAPENTIN 300 MG CAP PO SCH ×3 (08:20→19:59)
[2023-05-15] MEDS: ELUXADOLINE 75 MG PO SCH ×2 (08:20→18:14)
[2023-05-15] MEDS ORDERED: NICOTINE 21MG/24HR PATCH TRANSDERM SCH (09:00)
[2023-05-15 11:22] LABS: LDL Cholesterol,Calculated 97.4 mg/dL (0.0-131.0)
[2023-05-15] MEDS: PALIPERIDONE 3 MG TAB.ER.24 PO SCH (12:20)
--- NOTE | 2023-05-15 13:22 | P.HP ---
Psychiatric H&P - . H&P Date: 05/15/23 History & Physical: Allergies Allergy/AdvReac Type Severity Reaction Status Date / Time No Known Allergies Allergy Verified 05/14/23 20:23 Vital Signs Temp 97.9 F 05/15/23 03:39 Pulse 130 H 05/15/23 07:04 Resp 17 05/15/23 03:39 BP 110/78 05/15/23 07:04 Pulse Ox 99 05/15/23 03:39 FiO2 Intake & Output 05/14/23 05/15/23 05/15/23 18:59 06:59 18:59 Weight 65.771 kg 80.931 kg Laboratory Last Values Estimated Ave Glu mg/dL 94 mg/dL 05/14/23 20:04 Hemoglobin A1c 4.9 % (<=6.0) 05/14/23 20:04 Triglycerides 253.00 mg/dL (0.00-149.00) H 05/14/23 06:00 Cholesterol 177.00 mg/dL (0.00-200.00) 05/14/23 06:00 LDL Cholesterol, Calc 97.4 mg/dL (0.0-131.0) 05/14/23 06:00 VLDL Cholesterol, Calc 50.60 mg/dL (5.00-40.00) H 05/14/23 06:00 HDL Cholesterol 29.00 mg/dL (40.00-60.00) L 05/14/23 06:00 Cholesterol/HDL Ratio 6.10 Ratio 05/14/23 06:00 05/15/23 12:03 Identifying Data: patient is a 32 yo female, hx of bipolar disorder and several inpt psych admissions, lives with her and kids in a house. HPI: Patient was seen today by law writer after she was transferred from the medical floors last night. Patient initially came into the hospital on 05/13 and admitted medically and was seen for consultation by Dr Larkin, as per his psych assessment on 05/14 "This is a psychiatric consultation on Kinsey Talley who is a 32-year-old female with long history of bipolar disorder Patient was hospitalized on the medical floor after patient had taken about 20 tablets of different medications that she has been prescribed Patient denies that she had preplanned a suicide attempt but states that he was more of an impulsive acting out She says that she is currently going through a medication management by her psychiatrist at the outpatient clinic who feels that the Zoloft was making her manic She says that she has been taken off the Zoloft and feels that she may be experiencing withdrawal symptoms She admits that she's also been feeling more anxious and agitated Patient also smokes cannabis on a daily basis and does not feel that the cannabis is a troubling or anxiety anymore Patient states that she also takes gabapentin 600 mg 3 times a day without much benefit She admits feeling frustrated mood he impulsive agitated and restless She says that she is in agreement that she needs to come to the psychiatric unit voluntarily and that she does need help Patient's current psychotropic medications include Trazodone 50 mg daily at bedtime when necessary Lamotrigine 100 mg twice a day Buspirone 15 mg 4 times a day Invega 6 mg daily at bedtime And gabapentin 600 mg 3 times a day" Patient was agreeable to speak to law writer today. She claims that she was feeling fairly anxious, labile before coming in the hospital. States that she overdosed on Neurontin, paliperidone and Lamictal impulsively. She states that she does not know whether it was a suicide attempt or not. Claims that she overdosed on about a week's worth of medications. Claims that she was having "bad thoughts" and also feeling hopeless and overwhelmed with her living situation. Claims that she had a "small disagreement with my " and overdosed impulsively in front of him. She states that she called the crisis line who called her and they called the police to bring her into the hospital. She claims today she is not having suicidal or homicidal thoughts intent or plan, denies any auditory or visual hallucinations. She is claiming that she is taking her medications regularly however feeling unstable from them. She states that she is having racing thoughts finding it difficult to sleep, fair appetite. She claims that she is not using any recreational drugs except for cannabis and nicotine products. PAST PSYCHIATRIC HISTORY: Patient states that she was proceeded diagnosed with PTSD, bschizoaffective disorder with psychotic features, and anxiety. She has taken several psychiatric medications in the past. She was last hospitalized in our psychiatric unit in february 2023. The patient follows with [facility]. Patient denies any history of suicide attempts in the past. PMH: Past Medical History: No Reported History History of Any Multi-Drug Resistant Organisms: None Reported Past Surgical History: Section Past Anesthesia/Blood Transfusion Reactions: No Reported Reaction Past Psychological History: Anxiety, Bipolar, PTSD Smoking Status: Current every day smoker Past Alcohol Use History: Occasional Past Drug Use History: Marijuana ALLERGIES: NO KNOWN DRUG ALLERGIES CHEMICAL DEPENDENCY HISTORY: The patient reports that she smokes approximately a third of a pack of cigarettes per day. She denies any alcohol use. She claims that she frequently engages in marijuana use. She denies any illicit drug use. FAMILY PSYCHIATRIC/SUBSTANCE USE HISTORY: The patient reports that her mother had PTSD and her father was bipolar SOCIAL HISTORY: Patient was born and raised in [place]. She is to her Blue since 2017. They have 2 daughters. Although her is recently unemployed, the patient did receive a recent inheritance. She reports the [employer] genaro. She does report a history of incarceration back in 2017 after filing false reports due to believing that we'll well water was poisoned. No other legal issues or concerns. Mental status examination: General Appearance: Patient appears to be stated age is alert, directable, and attempts to cooperate. Patient appears to have slightly disheveled hygiene and grooming. Behavior: Patient was laying down without any agitated behavior. Normal psychomotor activity. Eye contact is appropriate. Speech: Patient's speech is fluent and nonpressured. concrete. Mood/Affect: Patient reports her mood is depressed, affect is congruent and constricted Suicidality/Homicidality: Patient denies suicidal ideation. She reports no intention or plan at this time. denies any HI, intention, and/or plan. Perceptions: Patient denies any visual hallucinations and denies any auditory hallucinations Though content/process: logical, goal oriented. no paranoia or delusions. Memory and concentration: AOX3, grossly intact for the purposes of this session Judgment and insight: poor Diagnostic impression: Bipolar disorder mixed type overdose of medications Personality disorder unspecified cannabis use disorder nicotine dependence STRENGTHS/WEAKNESSES: Strength is that the patient is resilient. weakness is that patient has a chronic mental health history. INTELLECT: average PLAN: -Patient is admitted under [voluntary] status to MHU for stabilization of psychiatric symptoms and safety. Patient has signed [adult voluntary form and] [medication consent] and is placed in patient's chart. -Medications : Will increase invega po to 3 mg daily + 6 mg qhs for mood stabilization, plan to transition onto GONZALEZ to ensure compliance. lamictal 100 mg bid for mood stabilization. trazodone 100 mg qhs insomnia/mood, vistaril prn for anxiety, melatonin qhs for sleep -Ativan [and Haldol] PRN for agitation/aggression [-Patient was counselled on substance abuse and desired to cut back on use] -Patient was informed of the risks, benefits and side effects of the medication and patient verbally consented to taking the medications. Patient signed med consent form and was placed in chart. -Internal Medicine consult to perform medical evaluation and physical. -NRT - [nicotine patch] -SW on board for discharge planning. Encourage patient to participate in groups to work on coping skills. patient will need to be safely transitioned onto GONZALEZ prior to discharge, hopeful for discharge in 2-3 days back home. 05/15/23 13:21
[2023-05-15] MEDS: hydrOXYzine pamoate 25 MG CAP PO PRN (15:54)
[2023-05-15] MEDS: PALIPERIDONE 6 MG TAB.ER.24 PO SCH (18:34)
[2023-05-15] MEDS: traZODone HCL 100 MG TAB PO SCH (19:57)
[2023-05-15] MEDS: MELATONIN 5 MG TABLET PO SCH (19:57)
[2023-05-15] MEDS ORDERED: HALOPERIDOL LACTATE 5 MG/ML 1 ML VIAL IM PRN (20:53)
[2023-05-15] MEDS ORDERED: LORazepam 2 MG/ML INJ IM PRN (20:53)
[2023-05-15] MEDS: haloperidoL 5 MG TAB PO PRN (21:15)
[2023-05-15] MEDS: LORazepam 1 MG TAB PO PRN (21:15)
--- NOTE | 2023-05-15 23:28 | CONS ---
CONSULTATION CHIEF COMPLAINT: Major depression, status post overdose and suicide intent. HISTORY OF PRESENT ILLNESS: This lady is stable and states she is having no problems when she has been transferred to the psychiatric unit. She has no complaints. PHYSICAL EXAMINATION: CHEST: Clear. CARDIAC: Normal. ABDOMEN: Soft, nontender. EXTREMITIES: Normal. She is overweight. IMPRESSION: 1. Major depression. 2. Status post suicide attempt. 3. Suicidal personality. RECOMMENDATIONS: None. MMODL / IJN: [id number] /
[2023-05-16] MEDS: ELUXADOLINE 75 MG PO SCH ×2 (07:59→16:16)
[2023-05-16] MEDS: metFORMIN 500 MG TAB PO SCH ×2 (08:28→19:54)
[2023-05-16] MEDS: lamoTRIgine 100 MG TAB PO SCH ×2 (08:28→19:54)
[2023-05-16] MEDS: NICOTINE 21MG/24HR PATCH TRANSDERM SCH (08:28)
[2023-05-16] MEDS: PALIPERIDONE 3 MG TAB.ER.24 PO SCH (08:28)
[2023-05-16] MEDS: haloperidoL 5 MG TAB PO PRN ×2 (08:32→15:28)
[2023-05-16] MEDS: LORazepam 1 MG TAB PO PRN ×2 (08:32→15:28)
[2023-05-16] MEDS ORDERED: PALIPERIDONE 3 MG TAB.ER.24 PO STA (09:14)
[2023-05-16] MEDS: GABAPENTIN 300 MG CAP PO SCH ×3 (09:26→19:53)
--- NOTE | 2023-05-16 09:58 | P.PN ---
Progress Note - Text Progress Note Date: 05/16/23 Interval hx: Patient was seen sitting in an goal setting group this morning. Patient was able to speak to database report writer today in the office. She claims that she is doing "a little bit better" with regards to her overall symptoms since yesterday. She states that she is still struggling with racing thoughts and claims that she also hears voices aswell. Patient claims that she is taking the medications and wants to get better. She continues to focus on discharge. States that she slept about 10 hours last night fairly well. Claims that her anxiety does get severe during the day and attributes some of it to the units daily. She does claim that the Vistaril has been helping and is agreeable to take it in the afternoons. States that she needs to take a Haldol and Ativan this morning due to "hearing a man's voice and having racing thoughts". She appears to be more cooperative today. Has a fair appetite. Is denying any current auditory or visual hallucinations, denying any suicidal or homicidal ideations intent or plan. Mental status examination: General Appearance: Patient appears to be stated age is alert, directable, and attempts to cooperate. Patient appears to have improving hygiene and grooming. Behavior: Patient was laying down without any agitated behavior. Normal psych omotor activity. Eye contact is appropriate. Speech: Patient's speech is fluent and nonpressured. concrete, improving mildly Mood/Affect: Patient reports her mood is improving mildly, affect is congruent and constricted Suicidality/Homicidality: Patient denies suicidal ideation. She reports no intention or plan at this time. denies any HI, intention, and/or plan. Perceptions: Patient denies any visual hallucinations and denies any auditory hallucinations Though content/process: logical, goal oriented. no paranoia or delusions. Focused on discharge. Memory and concentration: AOX3, grossly intact for the purposes of this session Judgment and insight: poor, improving mildly Diagnostic impression: Schizoaffective disorder, Bipolar type overdose of medications Personality disorder unspecified cannabis use disorder nicotine dependence PLAN: -Patient is admitted under voluntary status to MHU for stabilization of psychiatric symptoms and safety. Patient has signed adult voluntary form and medication consent and is placed in patient's chart. -Medications : Will increase invega po to 6 mg BID for mood stabilization, plan to transition onto GONZALEZ to ensure compliance. lamictal 100 mg bid for mood stabilization. trazodone 100 mg qhs insomnia/mood, added vistaril 50 mg at 1600 scheduled for anxiety and also continue prn for anxiety, melatonin qhs for sleep. -Ativan and Haldol PRN for agitation/aggression -NRT - nicotine patch -SW on board for discharge planning. Encourage patient to participate in groups to work on coping skills. patient will need to be safely transitioned onto GONZALEZ prior to discharge, hopeful for discharge in 2-3 days back home.
[2023-05-16] MEDS ORDERED: hydrOXYzine pamoate 25 MG CAP PO SCH (16:00)
[2023-05-16] MEDS: PALIPERIDONE 6 MG TAB.ER.24 PO SCH (19:54)
[2023-05-16] MEDS: MELATONIN 5 MG TABLET PO SCH (19:54)
[2023-05-16] MEDS: traZODone HCL 100 MG TAB PO SCH (19:54)
[2023-05-17] MEDS: hydrOXYzine pamoate 25 MG CAP PO PRN (08:22)
[2023-05-17] MEDS: GABAPENTIN 300 MG CAP PO SCH ×3 (08:22→20:11)
[2023-05-17] MEDS: metFORMIN 500 MG TAB PO SCH ×2 (08:23→20:10)
[2023-05-17] MEDS: lamoTRIgine 100 MG TAB PO SCH ×3 (08:23→20:10)
[2023-05-17] MEDS: NICOTINE 21MG/24HR PATCH TRANSDERM SCH (08:24)
[2023-05-17] MEDS: PALIPERIDONE 6 MG TAB.ER.24 PO SCH ×2 (08:24→20:10)
[2023-05-17] MEDS: ELUXADOLINE 75 MG PO SCH ×2 (08:26→16:12)
--- NOTE | 2023-05-17 10:05 | P.PN ---
Progress Note - Text Progress Note Date: 05/17/23 Interval hx: Patient was seen sitting in with group this morning. Patient claims that she feels a bit better compared to yesterday. She states that the voices have been calming down and states that also the racing thoughts have also been improving mildly. She states that she was still having some anxiety during the day we spoke about increasing the Vistaril which she is okay with. She has several questions about her medications. She continues to be on board with him transitioned onto Invega Sustenna to insure compliance and also maintain good control of her psychiatric symptoms. She states that she is trying to be more verbal and speak more about her symptoms. She claims that she does miss her family at this time. She claims that she sleep last night about 10 hours. Denies any changes in her appetite today. she continues to ask for recieve prn po haldol however asked senior medical writer what its for. Is denying any current auditory or visual hallucinations, denying any suicidal or homicidal ideations intent or plan. Mental status examination: General Appearance: Patient appears to be stated age is alert, directable, and attempts to cooperate. Patient appears to have improving hygiene and grooming. Behavior: Patient was laying down without any agitated behavior. Normal psychom otor activity. Eye contact is appropriate. Speech: Patient's speech is fluent and nonpressured. concrete, improving mildly Mood/Affect: Patient reports her mood is improving mildly, affect is congruent and constricted Suicidality/Homicidality: Patient denies suicidal ideation. She reports no intention or plan at this time. denies any HI, intention, and/or plan. Perceptions: Patient denies any visual hallucinations and denies any auditory hallucinations Though content/process: logical, goal oriented. no paranoia or delusions. Focused on discharge. Memory and concentration: AOX3, grossly intact for the purposes of this session Judgment and insight: poor, improving mildly Diagnostic impression: Schizoaffective disorder, Bipolar type overdose of medications Personality disorder unspecified cannabis use disorder nicotine dependence PLAN: -Patient is admitted under voluntary status to MHU for stabilization of psychiatric symptoms and safety. Patient has signed adult voluntary form and m edication consent and is placed in patient's chart. -Medications : continue invega po 6 mg BID for mood stabilization, plan to transition onto GONZALEZ to ensure compliance will give Invega sustenna 234 mg IM loading dose tomorrow and likely second dose on monday morning. increase lamictal 100 mg tid for mood stabilization. trazodone 100 mg qhs insomnia/mood, increase scheduled vistaril 50 mg at 0800 and 1600 for anxiety and also continue prn for anxiety, melatonin 10 mg qhs for sleep. -Ativan and Haldol PRN for agitation/aggression -NRT - nicotine patch -SW on board for discharge planning. Encourage patient to participate in groups to work on coping skills. patient will need to be safely transitioned onto GONZALEZ prior to discharge, hopeful for discharge early next week after patient gets her second dose of Invega sustenna.
[2023-05-17] MEDS: hydrOXYzine pamoate 25 MG CAP PO SCH (15:58)
[2023-05-17] MEDS: traZODone HCL 100 MG TAB PO SCH (20:10)
[2023-05-17] MEDS: MELATONIN 5 MG TABLET PO SCH (20:10)
[2023-05-18] MEDS: LORazepam 1 MG TAB PO PRN ×2 (00:38→23:41)
[2023-05-18] MEDS ORDERED: PALIPERIDONE IM 234 MG/1.5 ML SYG IM STA (08:21)
[2023-05-18] MEDS: ELUXADOLINE 75 MG PO SCH ×2 (08:29→17:31)
[2023-05-18] MEDS: GABAPENTIN 300 MG CAP PO SCH ×3 (08:37→20:19)
[2023-05-18] MEDS: metFORMIN 500 MG TAB PO SCH ×2 (08:37→20:17)
[2023-05-18] MEDS: PALIPERIDONE 6 MG TAB.ER.24 PO SCH ×2 (08:37→20:17)
[2023-05-18] MEDS: lamoTRIgine 100 MG TAB PO SCH ×3 (08:37→20:17)
[2023-05-18] MEDS: NICOTINE 21MG/24HR PATCH TRANSDERM SCH (08:38)
[2023-05-18] MEDS: hydrOXYzine pamoate 25 MG CAP PO SCH ×2 (08:38→15:58)
--- NOTE | 2023-05-18 09:00 | P.PN ---
Progress Note - Text Progress Note Date: 05/18/23 Interval hx: Patient was seen wandering the hallways this morning after taking her medications. She claims that she was having anxiety last night and states that "we had a difficult conversation" referring to a phone call that she had with her family yesterday. She states that her family is thinking that it may be a good idea for her to spend a bit of time outside of the house upon discharge to make sure that she is doing well on her medications before coming back home. She claims that she does not know what to think about this and asked fiction and nonfiction writer prose's opinion. We spoke about her diagnosis, the concern that her family may have about her racing thoughts and symptoms. she claims that she is trying to use coping skills and distract herself and go to groups. she states that she had to take an ativan last night to help her sleep due to the anxiety related to this. we spoke more about the GONZALEZ and she is agreeable to receive this today. claims that the racing thoughts have also been improving mildly. she is denying any depression today. Denies any changes in her appetite today. she is denying any current auditory or visual hallucinations, denying any suicidal or homicidal ideations intent or plan. Mental status examination: General Appearance: Patient appears to be stated age is alert, directable, and attempts to cooperate. Patient appears to have improving hygiene and grooming. Behavior: Patient was laying down without any agitated behavior. Normal psychomotor activity. Eye contact is appropriate. Speech: Patient's speech is fluent and nonpressured, improving mildly Mood/Affect: Patient reports her mood is improving mildly, affect is congruent Suicidality/Homicidality: Patient denies suicidal ideation no plan at this time. denies any HI, intention, and/or plan. Perceptions: Patient denies any visual hallucinations and denies any auditory hallucinations Though content/process: logical, goal oriented. no paranoia or delusions. Memory and concentration: AOX3, grossly intact for the purposes of this session Judgment and insight: improving mildly Diagnostic impression: Schizoaffective disorder, Bipolar type overdose of medications Personality disorder unspecified cannabis use disorder nicotine dependence PLAN: -Patient is admitted under voluntary status to MHU for stabilization of psychiatric symptoms and safety. Patient has signed adult voluntary form and medication consent and is placed in patient's chart. -Medications : decrease invega po 6 mg hs + 3 mg daily for mood stabilization, plan to transition onto GONZALEZ to ensure compliance will give Invega sustenna 234 mg IM loading dose today and likely second dose on monday morning prior to d/c. lamictal 100 mg tid for mood stabilization. trazodone 100 mg qhs insomnia/mood, scheduled vistaril 50 mg at 0800 and 1600 for anxiety and also continue prn for anxiety, melatonin 10 mg qhs for sleep. -Ativan and Haldol PRN for agitation/aggression -NRT - nicotine patch -SW on board for discharge planning. Encourage patient to participate in groups to work on coping skills. patient will need to be safely transitioned onto GONZALEZ prior to discharge, hopeful for discharge early next week after patient gets her second dose of Invega sustenna.
[2023-05-18] MEDS: MELATONIN 5 MG TABLET PO SCH (20:17)
[2023-05-18] MEDS: traZODone HCL 100 MG TAB PO SCH (20:17)
[2023-05-19] MEDS: NICOTINE 21MG/24HR PATCH TRANSDERM SCH (08:19)
[2023-05-19] MEDS: lamoTRIgine 100 MG TAB PO SCH ×3 (08:22→20:02)
[2023-05-19] MEDS: hydrOXYzine pamoate 25 MG CAP PO SCH ×2 (08:22→16:01)
[2023-05-19] MEDS: ELUXADOLINE 75 MG PO SCH ×2 (08:22→16:00)
[2023-05-19] MEDS: metFORMIN 500 MG TAB PO SCH ×2 (08:22→20:01)
[2023-05-19] MEDS: GABAPENTIN 300 MG CAP PO SCH ×3 (08:23→20:01)
[2023-05-19] MEDS ORDERED: PALIPERIDONE 3 MG TAB.ER.24 PO SCH ×2 (09:00→21:00)
--- NOTE | 2023-05-19 09:55 | P.PN ---
Progress Note - Text Progress Note Date: 05/19/23 Interval hx: Patient was seen sitting in a group this morning was scribbled speech regular. Patient appears to be brighter in her affect. She states that a new patient confronted her and threatened her and she states that that kind of threw her off this morning and she informed the nurses about it. She states that she is doing a bit better overall with regards to her medications and claims that the racing thoughts have been improved, she is not hearing voices any longer. She received the loading dose of Invega Sustenna yesterday. She denied any issues at the injection. claims that the racing thoughts have also been improving mildly. Things that she was able sleep a bit better last night. she is denying any depression today. Denies any changes in her appetite today. she is denying any current auditory or visual hallucinations, denying any suicidal or homicidal ideations intent or plan. Mental status examination: General Appearance: Patient appears to be stated age is alert, directable, and attempts to cooperate. Patient appears to have improving hygiene and grooming. Behavior: Patient was laying down without any agitated behavior. Normal psychomotor activity. Eye contact is appropriate. Speech: Patient's speech is fluent and nonpressured, improving mildly Mood/Affect: Patient reports her mood is improving mildly, affect is congruent Suicidality/Homicidality: Patient denies suicidal ideation no plan at this time. denies any HI, intention, and/or plan. Perceptions: Patient denies any visual hallucinations and denies any auditory hallucinations Though content/process: logical, goal oriented. no paranoia or delusions. Memory and concentration: AOX3, grossly intact for the purposes of this session Judgment and insight: improving mildly Diagnostic impression: Schizoaffective disorder, Bipolar type overdose of medications Personality disorder unspecified cannabis use disorder nicotine dependence PLAN: -Patient is admitted under voluntary status to MHU for stabilization of psychiatric symptoms and safety. Patient has signed adult voluntary form and self regional healthcare consent and is placed in patient's chart. -Medications : decrease invega po 3 mg hs + 3 mg daily for mood stabilization and ordered taper over the weekend. Patient received GONZALEZ Invega sustenna 234 mg IM loading dose on 05/18 and likely second dose on monday morning prior to d/c. lamictal 100 mg tid for mood stabilization. trazodone 100 mg qhs insomnia/mood, scheduled vistaril 50 mg at 0800 and 1600 for anxiety and also continue prn for anxiety, melatonin 10 mg qhs for sleep. -Ativan and Haldol PRN for agitation/aggression -NRT - nicotine patch -SW on board for discharge planning. Encourage patient to participate in groups to work on coping skills. hopeful for discharge early monday after patient gets her second dose of Invega sustenna.
[2023-05-19 10:32] VITALS: RESP 18
[2023-05-19] MEDS: traZODone HCL 100 MG TAB PO SCH (20:01)
[2023-05-19] MEDS: MELATONIN 5 MG TABLET PO SCH (20:01)
[2023-05-19] MEDS: PALIPERIDONE 3 MG TAB.ER.24 PO SCH (20:02)
[2023-05-20] MEDS: DICYCLOMINE 20 MG TAB PO PRN (07:04)
[2023-05-20 07:05] VITALS: TEMP 97.5
[2023-05-20] MEDS: DIPHENOX-ATROP 2.5-0.025 MG 1 EACH TAB PO PRN (07:19)
[2023-05-20] MEDS: metFORMIN 500 MG TAB PO SCH ×2 (08:25→20:00)
[2023-05-20] MEDS: hydrOXYzine pamoate 25 MG CAP PO SCH ×2 (08:25→15:58)
[2023-05-20] MEDS: lamoTRIgine 100 MG TAB PO SCH ×3 (08:25→20:00)
[2023-05-20] MEDS: GABAPENTIN 300 MG CAP PO SCH ×3 (08:25→20:00)
[2023-05-20] MEDS: PALIPERIDONE 3 MG TAB.ER.24 PO SCH ×2 (08:26→20:00)
[2023-05-20] MEDS: NICOTINE 21MG/24HR PATCH TRANSDERM SCH (08:27)
[2023-05-20] MEDS: ELUXADOLINE 75 MG PO SCH ×2 (08:45→16:19)
--- NOTE | 2023-05-20 13:51 | P.PN ---
Subjective Progress Note Date: 05/20/23 Principal diagnosis: Diagnostic impression: Schizoaffective disorder, Bipolar type overdose of medications Personality disorder unspecified cannabis use disorder nicotine dependence Patient was seen in the office and she came readily and was very cooperative and asked good questions. She wanted to know the difference between bipolar with psychosis versus schizoaffective bipolar type. I told her she is welcome to look it up on the Internet but that would be a difficult one is her very similar. She feels that she has doing better and says she gets good feedback from others that she seems to be doing well. She is sleeping okay and please for a couple of days her mood so been stable she thinks that her dose of antipsychotic was too low on the past. She is not sure about the Lamictal 100 3 times a day. She understands S for depression she still feels a little depre ssed. However when she added Zoloft in the past that made her manic. Mental status examination: General Appearance: Patient appears to be stated age is alert, directable, and is cooperative. Patient has good hygiene and grooming. Behavior:. Normal psychomotor activity. Eye contact is appropriate. Speech: Patient's speech is fluent and nonpressured, Mood/Affect: Patient reports her mood is improving mildly and she is hopeful that the current combination of meds will work better than what she was on. She says she was taking her medicine and arrived at the point she thought it wasn't working so she to it all in the trash then she thought better of that so doesn't them on the trash and took a handful which she now realizes was rash and dangerous., affect is congruent Suicidality/Homicidality: Patient denies suicidal ideation no plan at this time. denies any HI, intention, and/or plan. Perceptions: Patient denies any visual hallucinations and denies any auditory hallucinations Though content/process: logical, goal oriented. no paranoia or delusions. Memory and concentration: AOX3, pays good attention Judgment and insight: Good Diagnostic impression: Schizoaffective disorder, Bipolar type overdose of medications Personality disorder unspecified cannabis use disorder nicotine dependence PLAN: No change in medications -Patient is admitted under voluntary status to [facility]HU for stabilization of psychiatric symptoms and safety. Patient has signed adult voluntary form and medication consent and is placed in patient's chart. -Medications : invega po 3 mg hs + 3 mg daily for mood stabilization and ordered taper over the weekend. Patient received GONZALEZ Invega sustenna 234 mg IM loading dose on 05/18 and likely second dose on monday morning prior to d/c. lamictal 100 mg tid for mood stabilization. trazodone 100 mg qhs insomnia/mood, scheduled vistaril 50 mg at 0800 and 1600 for anxiety and also continue prn for anxiety, melatonin 10 mg qhs for sleep. -Ativan and Haldol PRN for agitation/aggression -NRT - nicotine patch -SW on board for discharge planning. Encourage patient to participate in groups to work on coping skills. hopeful for discharge early monday after patient gets her second dose of Invega sustenna. Objective - Vital Signs Vital signs: Vital Signs Temp 97.5 F L 05/20/23 07:05 Pulse 18 L 05/20/23 07:05 Resp 18 05/20/23 07:05 BP 102/66 05/20/23 07:05 Pulse Ox 97 05/16/23 06:43 FiO2
[2023-05-20] MEDS: MELATONIN 5 MG TABLET PO SCH (20:00)
[2023-05-20] MEDS: traZODone HCL 100 MG TAB PO SCH (20:00)
[2023-05-21] MEDS: DIPHENOX-ATROP 2.5-0.025 MG 1 EACH TAB PO PRN (06:01)
[2023-05-21] MEDS: DICYCLOMINE 20 MG TAB PO PRN (06:35)
--- NOTE | 2023-05-21 06:55 | P.PN ---
Subjective Progress Note Date: 05/21/23 Principal diagnosis: Diagnostic impression: Schizoaffective disorder, Bipolar type overdose of medications Personality disorder unspecified cannabis use disorder nicotine dependence Patient was seen in the office and she came readily and was very cooperative and asked good questions. She wanted to know the difference between bipolar with psychosis versus schizoaffective bipolar type. I told her she is welcome to look it up on the Internet but that would be a difficult one is her very similar. She feels that she has doing better and says she gets good feedback from others that she seems to be doing well. She is sleeping okay and is happy that, for a couple of days, her mood has been stable. she thinks that her dose of antipsychotic was too low on the past. She is not sure about the Lamictal 100 3 times a day. She still feels a little depressed. She was able to talk to her and be assertive bring up issues about money spending. He lists and then it went well she also has a good plan for further stabilization before she goes back home to all the stress and is hopeful. Mental status examination: General Appearance: Patient appears to be stated age is alert, directable, and is cooperative. Patient has good hygiene and grooming. Behavior:. Normal psychomotor activity. Eye contact is appropriate. Speech: Patient's speech is fluent and nonpressured, Mood/Affect: Patient reports her mood is improving mildly and she is hopeful that the current combination of meds will work better than what she was on. She says she was taking her medicine and arrived at the point she thought it wasn't working so she to it all in the trash then she thought better of that so doesn't them on the trash and took a handful which she now realizes was rash and dangerous., affect is congruent Suicidality/Homicidality: Patient denies suicidal ideation no plan at this time. denies any HI, intention, and/or plan. Perceptions: Patient denies any visual hallucinations and denies any auditory hallucinations Though content/process: logical, goal oriented. no paranoia or delusions. Memory and concentration: AOX3, pays good attention Judgment and insight: Good Diagnostic impression: Schizoaffective disorder, Bipolar type overdose of medications Personality disorder unspecified cannabis use disorder nicotine dependence PLAN: No change in medications She says that the plan is for her to be seen by the older adult social work specialist and taken by the older adult social work specialist at 11 tomorrow morning to a snf. -Patient is admitted under voluntary status to [facility]HU for stabilization of psychiatric symptoms and safety. Patient has signed adult voluntary form and medication consent and is placed in patient's chart. -Medications : invega po 3 mg hs + 3 mg daily for mood stabilization and ordered taper over the weekend. Patient received GONZALEZ Invega sustenna 234 mg IM loading dose on 05/18 and likely second dose on monday morning prior to d/c. lamictal 100 mg tid for mood stabilization. trazodone 100 mg qhs insomnia/mood, scheduled vistaril 50 mg at 0800 and 1600 for anxiety and also continue prn for anxiety, melatonin 10 mg qhs for sleep. -Ativan and Haldol PRN for agitation/aggression -NRT - nicotine patch -SW on board for discharge planning. Encourage patient to participate in groups to work on coping skills. hopeful for discharge early monday after patient gets her second dose of Invega sustenna. Objective - Vital Signs Vital signs: Vital Signs Temp 97.5 F L 05/20/23 07:05 Pulse 111 H 05/21/23 05:43 Resp 18 05/21/23 05:43 BP 123/66 05/21/23 05:43 Pulse Ox 99 05/21/23 05:43 FiO2
[2023-05-21] MEDS: ELUXADOLINE 75 MG PO SCH ×2 (08:27→15:33)
[2023-05-21] MEDS: NICOTINE 21MG/24HR PATCH TRANSDERM SCH (08:30)
[2023-05-21] MEDS: hydrOXYzine pamoate 25 MG CAP PO SCH ×2 (08:30→16:00)
[2023-05-21] MEDS: PALIPERIDONE 3 MG TAB.ER.24 PO SCH (08:30)
[2023-05-21] MEDS: lamoTRIgine 100 MG TAB PO SCH ×3 (08:30→20:16)
[2023-05-21] MEDS: metFORMIN 500 MG TAB PO SCH ×2 (08:30→20:16)
[2023-05-21] MEDS: GABAPENTIN 300 MG CAP PO SCH ×3 (08:30→20:16)
[2023-05-21] MEDS ORDERED: NON FORMULARY DRUG (Semaglutide [Wegovy] 0.5 MG/0.5 ML Each) SQ SCH (09:00)
[2023-05-21] MEDS: MELATONIN 5 MG TABLET PO SCH (20:15)
[2023-05-21] MEDS: traZODone HCL 100 MG TAB PO SCH (20:16)
[2023-05-22 05:03] VITALS: BP 110/78; PULSE 107
[2023-05-22] MEDS: ELUXADOLINE 75 MG PO SCH (07:23)
[2023-05-22] MEDS: metFORMIN 500 MG TAB PO SCH (07:25)
[2023-05-22] MEDS: NICOTINE 21MG/24HR PATCH TRANSDERM SCH (07:25)
[2023-05-22] MEDS: GABAPENTIN 300 MG CAP PO SCH (07:25)
[2023-05-22] MEDS: PALIPERIDONE 3 MG TAB.ER.24 PO SCH (07:25)
[2023-05-22] MEDS: lamoTRIgine 100 MG TAB PO SCH (07:26)
[2023-05-22] MEDS: hydrOXYzine pamoate 25 MG CAP PO SCH (07:26)
[2023-05-22] MEDS ORDERED: PALIPERIDONE IM 156 MG/ML SYG IM STA (09:56)
--- NOTE | 2023-05-22 10:37 | P.DS ---
Providers Date of admission: 05/14/23 19:28 Expected date of discharge: 05/22/23 Attending physician: Gabino Stevens MD Consults: 05/14/23 19:30 Consult Physician Routine Consulting Provider: Thomas Ramsay Consult Reason/Comments: medical management Do you want consulting provider notified?: Yes Primary care physician: Thomas Ramsay - Discharge Diagnosis(es) (1) Schizoaffective disorder, bipolar type Current Visit: Yes Status: Acute Priority: High (2) Overdose of medication Current Visit: Yes Status: Acute Priority: High (3) Personality disorder, unspecified Current Visit: Yes Status: Acute Priority: High (4) Cannabis use disorder Current Visit: Yes Status: Acute Priority: Medium (5) Nicotine dependence Current Visit: Yes Status: Acute Priority: Low Hospital Course: Admission HPI: Admission note was completed by Dr Larkin "patient is a 32 yo female, hx of bipolar disorder and several inpt psych admissions, lives with her and kids in a house. Patient was seen today by show card writer after she was transferred from the medical floors last night. Patient initially came into the hospital on 05/13 and admitted medically and was seen for consultation by Dr Larkin, as per his psych assessment on 05/14 "This is a psychiatric consultation on Kinsey Talley who is a 32-year-old female with long history of bipolar disorder Patient was hospitalized on the medical floor after patient had taken about 20 tablets of different medications that she has been prescribed Patient denies that she had preplanned a suicide attempt but states that he was more of an impulsive acting out She says that she is currently going through a medication management by her ps ychiatrist at the outpatient clinic who feels that the Zoloft was making her manic She says that she has been taken off the Zoloft and feels that she may be experiencing withdrawal symptoms She admits that she's also been feeling more anxious and agitated Patient also smokes cannabis on a daily basis and does not feel that the cannabis is a troubling or anxiety anymore Patient states that she also takes gabapentin 600 mg 3 times a day without much benefit She admits feeling frustrated mood he impulsive agitated and restless She says that she is in agreement that she needs to come to the psychiatric unit voluntarily and that she does need help Patient's current psychotropic medications include Trazodone 50 mg daily at bedtime when necessary Lamotrigine 100 mg twice a day Buspirone 15 mg 4 times a day Invega 6 mg daily at bedtime And gabapentin 600 mg 3 times a day" Patient was agreeable to speak to show card writer today. She claims that she was feeling fairly anxious, labile before coming in the hospital. States that she overdosed on Neurontin, paliperidone and Lamictal impulsively. She states that she does not know whether it was a suicide attempt or not. Claims that she overdosed on about a week's worth of medications. Claims that she was having "bad thoughts" and also feeling hopeless and overwhelmed with her living situation. Claims that she had a "small disagreement with my " and overdosed impulsively in front of him. She states that she called the crisis line who called her and they called the police to bring her into the hospital. She claims today she is not having suicidal or homicidal thoughts intent or plan, denies any auditory or visual hallucinations. She is claiming that she is taking her medications regularly however feeling unstable from them. She states that she is having racing thoughts finding it difficult to sleep, fair appetite. She claims that she is not using any recreational drugs except for cannabis and nicotine products." Hospital course: Upon admission to the unit patient was directable and agreeable to commence treatment and signed adult voluntary form . Patient got along well with other patients on the unit and followed unit protocol. Patient was compliant with the medications and denied any side effects throughout hospital course. Patient was started on invega po up to a total dose of 6 mg bid, she was then transitioned onto Invega sustenna GONZALEZ 234 mg IM on 05/18 and given second dose of 156 mg IM on 05/22 and will be due for monthly dose of 156 mg IM on 06/12. lamixctal was increased to 100 mg tid for mood stabilization, trazodone 100 mg qhs for insomnia/mood, vistaril 25 mg bid for anxiety, melatonin 10 mg qhs for sleep. Patient spoke of her stressors and engaged in therapy both group and individual. Patient was also seen by medical team for history and physical exam. Throughout the course of the hospitalization patient gradually improved with regards to mood, anxiety, hallucinations, racing thoughts, sleep and became more future oriented with improved insight and judgment. On the day of discharge patient denied any suicidal or homicidal ideations intent or plan denied any auditory or visual hallucinations. Patient endorsed wanting to live for her health, family and children. The patient denied any access to guns or weapons. Patient denied any paranoia and did not endorse any delusions. Patient does have a significant history of substance abuse and was counseled on abstaining from all substances including alcohol and marijuana. Patient elected to do outpatient substance use treatment program through [facility]. Patient was also counseled on the medications and need for regular compliance and was encouraged to follow-up with their outpatient appointment for mental health and also for primary care. Prior to discharge a family meeting will be arranged by social sciences chair to answer any questions and ensure safety upon discharge. Due to families concerns, patient was approved to go to [facility] temporarily prior to coming back home. Mental status exam: General Appearance: Patient appears to be wearing glasses, stated age is alert, pleasant, and cooperative. Patient is in no acute distress and has improved hygiene and grooming Behavior: Patient is calmly seated without any agitated behavior. Speech: Patient's speech is fluent and nonpressured. Mood/Affect: Patient reports their mood is "great", affect is congruent and euthymic. Suicidality/Homicidality: Patient denies having any suicidal or homicidal ideation intent or plan. Perceptions: Patient denies any auditory or visual hallucinations. Though content/process: There is no evidence of any delusional thought content and thought process is linear and goal-directed. more future oriented Memory and concentration: AOX3, grossly intact for the purposes of this session. Can spell "WORLD" backwards correctly. Judgment and insight: improved with guarded prognosis Impression: Schizoaffective disorder bipolar type Overdose of medication Personality disorder unspecified Cannabis use disorder Nicotine dependence Plan: -Continue with discharge today as patient has improved and stabilized psychiatrically and is not currently an imminent threat to herself and/or others. Patient will remain at chronically elevated risk for harm to self and/or others due to her chronic mental health condition. -Continue medications: Patient was d/c off PO invega and transitioned onto Invega sustenna GONZALEZ 234 mg IM on 05/18 and given second dose of 156 mg IM on 05/22 and will be due for monthly dose of 156 mg IM on 06/12. Trazodone 100 mg daily at bedtime for insomnia/mood, Vistaril 25 mg scheduled twice a day for anxiety, melatonin 10 mg daily at bedtime for sleep, Lamictal 100 mg 3 times a day for mood stabilization. -Patient was counseled on the need for medication compliance and appropriate follow-up at mental health and also primary care for medical issues. Patient verbalized understanding and agreed. -Social work to arrange for and conduct family meeting to ensure safety upon discharge and answer any questions/concerns. Social work also to arrange for patients follow up appointments with [facility] for psychiatric care along with follow up with primary care provider. -Patient counseled on abstaining from recreational drugs and marijuana and alcohol. Was informed/educated on the adverse effects on their physical and mental health. Patient verbally agreed and understood. -Patient was instructed to return to the hospital or seek immediate medical care if their psychiatric or medical symptoms do worsen or reoccur. Allergies Allergy/AdvReac Type Severity Reaction Status Date / Time No Known Allergies Allergy Verified 05/14/23 20:[address] Glu mg/dL 94 mg/dL 05/14/23 20:04 Hemoglobin A1c 4.9 % (<=6.0) 05/14/23 20:04 Triglycerides 253.00 mg/dL (0.00-149.00) H 05/14/23 06:00 Cholesterol 177.00 mg/dL (0.00-200.00) 05/14/23 06:00 LDL Cholesterol, Calc 97.4 mg/dL (0.0-131.0) 05/14/23 06:00 VLDL Cholesterol, Calc 50.60 mg/dL (5.00-40.00) H 05/14/23 06:00 HDL Cholesterol 29.00 mg/dL (40.00-60.00) L 05/14/23 06:00 Cholesterol/HDL Ratio 6.10 Ratio 05/14/23 06:00 Lamotrigine 2.3 ug/mL (2.0-15.0) 05/14/23 20:04 Vital Signs Temp 97.5 F L 05/20/23 07:05 Pulse 107 H 05/22/23 05:03 Resp 18 05/22/23 05:03 BP 110/78 05/22/23 05:03 Pulse Ox 99 05/22/23 05:03 FiO2 Patient Condition at Discharge: Stable Plan - Discharge Summary Discharge Rx Participant: Yes New Discharge Prescriptions: New Dicyclomine [Bentyl] 20 mg PO TID PRN 30 Days #90 tab PRN Reason: IBS lamoTRIgine [LaMICtal] 100 mg PO TID 30 Days #90 tab Melatonin 10 mg PO HS 30 Days #60 tab hydrOXYzine pamoate [Vistaril] 25 mg PO 0900,1600 30 Days #60 cap traZODone HCL [Desyrel] 100 mg PO HS 30 Days #30 tab metFORMIN HCL [Glucophage] 500 mg PO BID 30 Days #60 tab Paliperidone IM [Invega Sustenna] 156 mg IM QMONTHLY #1 each Continue medroxyPROGESTERone [Depo-Provera] 150 mg IM Q84D Gabapentin 600 mg PO TID Eluxadoline [Viberzi] 75 mg PO BID-W/MEALS Ibuprofen [Motrin] 600 mg PO Q8H PRN tab PRN Reason: Moderate To Severe Pain (4-10) Diphenoxylate HCl/Atropine [Lomotil 2.5-0.025 mg Tablet] 1 - 2 tab PO QID PRN PRN Reason: Diarrhea Nicotine 14Mg/24Hr Patch [Habitrol] 1 patch TRANSDERM DAILY 14 Days #14 patch Discontinued metFORMIN HCL [Glucophage] 500 mg PO BID Semaglutide [Wegovy] 0.5 mg SQ Q7D traZODone HCL [Desyrel] 50 mg PO HS PRN 14 Days #14 tab PRN Reason: Insomnia lamoTRIgine [LaMICtal] 100 mg PO BID 30 Days #30 tab Paliperidone [Invega] 6 mg PO HS #30 tab Dicyclomine [Bentyl] 20 mg PO QID PRN PRN Reason: IBS polyethylene glycoL 3350 [Miralax] 17 gm PO DAILY PRN PRN Reason: Constipation busPIRone HCL 15 mg PO QID Omeprazole [PriLOSEC] 40 mg PO DAILY PRN PRN Reason: gerd Melatonin 10 mg PO HS 30 Days #60 tab Discharge Medication List Gabapentin 600 mg PO TID 07/30/22 [History] medroxyPROGESTERone [Depo-Provera] 150 mg IM Q84D 07/30/22 [History] Eluxadoline [Viberzi] 75 mg PO BID-W/MEALS 03/01/23 [History] Ibuprofen [Motrin] 600 mg PO Q8H PRN tab 03/06/23 [Rx] Diphenoxylate HCl/Atropine [Lomotil 2.5-0.025 mg Tablet] 1 - 2 tab PO QID PRN 05/13/23 [History] Dicyclomine [Bentyl] 20 mg PO TID PRN 30 Days #90 tab 05/22/23 [Rx] Melatonin 10 mg PO HS 30 Days #60 tab 05/22/23 [Rx] Nicotine 14Mg/24Hr Patch [Habitrol] 1 patch TRANSDERM DAILY 14 Days #14 patch 05/22/23 [Rx] Paliperidone IM [Invega Sustenna] 156 mg IM QMONTHLY #1 each 05/22/23 [Rx] hydrOXYzine pamoate [Vistaril] 25 mg PO 0900,1600 30 Days #60 cap 05/22/23 [Rx] lamoTRIgine [LaMICtal] 100 mg PO TID 30 Days #90 tab 05/22/23 [Rx] metFORMIN HCL [Glucophage] 500 mg PO BID 30 Days #60 tab 05/22/23 [Rx] traZODone HCL [Desyrel] 100 mg PO HS 30 Days #30 tab 05/22/23 [Rx] Follow up Appointment(s)/Referral(s): [facility] [Outside] - 05/24/23 11:00 am (05/24/2023 11:00AM - 12:00PM FLY DUBOIS 05/25/2023 11:30AM - 12:00PM MORGAN SANTOYO) [facility] [NON-STAFF] - 1 Week Patient Instructions/Handouts: How to Stop Smoking (DC), Mood Disorders (DC), Schizoaffective Disorder (DC) Activity/Diet/Wound Care/Special Instructions: Avoid the use of street drugs and alcohol. Take all medications as prescribed. When you are in need of refills on your medications, please contact your medical provider and/or outpatient psychiatrist/provider to have this done. Please go to your scheduled outpatient appointment for aftercare treatment. If symptoms return or become worse, call the crisis line at and/or go to the nearest emergency room for evaluation. National Suicide Hotline 997.
== END 2023-05-22 14:17 | disposition home or self-care (01) | DRG 885 ==
LOC: 3MHU 19:28
PROVIDERS: ADMIT Psychiatry & Neurology Psychiatry; ATTEND Psychiatry & Neurology Psychiatry
DX: F25.0 Schizoaffective disorder, bipolar type (principal); F12.90 Cannabis use, unspecified, uncomplicated; F17.200 Nicotine dependence, unspecified, uncomplicated; F31.60 Bipolar disorder, current episode mixed, unspecified; F43.10 Post-traumatic stress disorder, unspecified; F60.9 Personality disorder, unspecified; G47.00 Insomnia, unspecified; T42.6X2A Poisoning by other antiepileptic and sedative-hypnotic drugs, intentional self-harm, initial encounter; Z79.899 Other long term (current) drug therapy
CPT/HCPCS: 80061; 80175; 83036

== ENCOUNTER → 2023-10-20 | Outpatient (CLI) | payer BC, OTHER ==
--- NOTE | 2023-10-20 16:41 | CT ---
EXAMINATION TYPE: CT lumbar spine wo/w con CT DLP: 2832.9 mGycm, Automated exposure control for dose reduction was used. DATE OF EXAM: 10/20/2023 4:18 PM COMPARISON: None. CLINICAL INDICATION:Female, 33 years old with history of M54.10 RADICULOPATHY KAMARI LEGS; PHH, lower ba ck and right groin pain x 1 month. TECHNIQUE: Multiple axial images were obtained from the midportion of T11 through the sacroiliac vinnie nts. Soft tissue and bone windows in coronal and sagittal planes were obtained and reviewed. Contrast used:Isovue 300 without and with IV Contrast. Oral contrast used: none. FINDINGS: Alignment: There are 5 lumbar type vertebral bodies within normal alignment. Bone: No evidence of fracture is identified. Minimal osteophyte formation and facet joint arthropath y. No evidence for significant disc space height loss. Degeneration changes of the sacroiliac joint m ost pronounced in the right superior aspect. Discs: T12-L1: No spinal canal or neural foraminal stenosis is identified. L1-L2: No spinal canal or neural foraminal stenosis is identified. L2-L3: No spinal canal or neural foraminal stenosis is identified. L3-L4: No spinal canal or neural foraminal stenosis is identified. L4-L5: No spinal canal or neural foraminal stenosis is identified. L5-S1: No spinal canal or neural foraminal stenosis is identified. Other: No acute intra-abdominal process. IMPRESSION: 1. No evidence for significant spinal canal or neural foraminal stenosis. No abnormal postcontrast e nhancement. No evidence of fracture. 2. Moderate right superior sacroiliac joint degeneration.
== END | disposition home or self-care (01) ==
LOC: RADCTMAIN 15:34
PROVIDERS: ATTEND Family Medicine
DX: M46.1 Sacroiliitis, not elsewhere classified (principal); M54.10 Radiculopathy, site unspecified; R32 Unspecified urinary incontinence
CPT/HCPCS: 72133; Q9967

== ENCOUNTER 2025-03-23 19:59 | Emergency (ER) | payer BC, MEDICARE, OTHER ==
[2025-03-23 20:20] VITALS: BP 120/82; PULSE 130; RESP 18; TEMP 98.8
--- NOTE | 2025-03-23 21:01 | ED ---
Psych HPI - General Chief Complaint: Psychiatric Symptoms Stated Complaint: court order-mental health Time Seen by Provider: 03/23/25 20:34 Source: patient, police, RN notes reviewed, old records reviewed Mode of arrival: ambulatory Limitations: no limitations - History of Present Illness Initial Comments: This is a 34-year-old female to ER for evaluation patient presents today for evaluation regards to psychiatric illness under court petition for psychiatric evaluation and treatment MD Complaint: suicidal ideation, feels depressed -: days(s) Associated Psychiatric Symptoms: depression, suicidal ideation History of same: Yes Quality: constant Improves With: none Worsens With: none Associated Symptoms: denies other symptoms Treatments Prior to Arrival: placed on mental health hold If Self Harm: admits thoughts of self harm - Related Data Home Medications Medication Instructions Recorded Confirmed Gabapentin 600 mg PO TID 07/30/22 05/14/23 medroxyPROGESTERone [Depo-Provera] 150 mg IM Q84D 07/30/22 05/14/23 Eluxadoline [Viberzi] 75 mg PO BID-W/MEALS 03/01/23 05/14/23 Diphenoxylate HCl/Atropine 1 - 2 tab PO QID PRN 05/13/23 05/14/23 [Lomotil 2.5-0.025 mg Tablet] Previous Rx's Medication Instructions Recorded Ibuprofen [Motrin] 600 mg PO Q8H PRN tab 03/06/23 Dicyclomine [Bentyl] 20 mg PO TID PRN 30 Days #90 tab 05/22/23 Melatonin 10 mg PO HS 30 Days #60 tab 05/22/23 Nicotine 14Mg/24Hr Patch [Habitrol] 1 patch TRANSDERM DAILY 14 Days 05/22/23 #14 patch Paliperidone IM [Invega Sustenna] 156 mg IM QMONTHLY #1 each 05/22/23 hydrOXYzine pamoate [Vistaril] 25 mg PO 0900,1600 30 Days #60 cap 05/22/23 lamoTRIgine [LaMICtal] 100 mg PO TID 30 Days #90 tab 05/22/23 metFORMIN HCL [Glucophage] 500 mg PO BID 30 Days #60 tab 05/22/23 traZODone HCL [Desyrel] 100 mg PO HS 30 Days #30 tab 05/22/23 Allergies Allergy/AdvReac Type Severity Reaction Status Date / Time No Known Allergies Allergy Verified 03/23/25 20:20 Review of Systems ROS Statement: Those systems with pertinent positive or pertinent negative responses have been documented in the HPI. ROS Other: All systems not noted in ROS Statement are negative. Past Medical History Past Medical History: No Reported History Additional Past Medical History / Comment(s): IBS History of Any Multi-Drug Resistant Organisms: None Reported Past Surgical History: Section Additional Past Surgical History / Comment(s): x 2 Past Anesthesia/Blood Transfusion Reactions: No Reported Reaction Past Psychological History: Anxiety, Bipolar, PTSD Smoking Status: Current every day smoker Past Alcohol Use History: None Reported Past Drug Use History: Cocaine, Marijuana, Methamphetamine - Past Family History Father History Unknown: Yes Family Medical History: Chest Pain / Angina, Congestive Heart Failure (CHF) General Exam Limitations: no limitations General appearance: alert, in no apparent distress Head exam: Present: atraumatic, normocephalic, normal inspection Eye exam: Present: normal appearance, PERRL, EOMI. Absent: scleral icterus, conjunctival injection, periorbital swelling ENT exam: Present: normal exam, mucous membranes moist Neck exam: Present: normal inspection. Absent: tenderness, meningismus, lymphadenopathy Respiratory exam: Present: normal lung sounds bilaterally. Absent: respiratory distress, wheezes, rales, rhonchi, stridor Cardiovascular Exam: Present: regular rate, normal rhythm, normal heart sounds. Absent: systolic murmur, diastolic murmur, rubs, gallop, clicks GI/Abdominal exam: Present: soft, normal bowel sounds. Absent: distended, tenderness, guarding, rebound, rigid Extremities exam: Present: normal inspection, full ROM, normal capillary refill. Absent: tenderness, pedal edema, joint swelling, calf tenderness Back exam: Present: normal inspection Neurological exam: Present: alert, oriented X3, CN II-XII intact Psychiatric exam: Present: normal affect, normal mood Skin exam: Present: warm, dry, intact, normal color. Absent: rash Course Vital Signs 03/23/25 20:17 Temperature 98.8 F Pulse Rate 130 H Respiratory 18 Rate Blood Pressure 120/82 O2 Sat by Pulse 96 Oximetry - Reevaluation(s) Reevaluation #1: 03/23/25 21:34 Medical records reviewed Reevaluation #2: 03/23/25 21:34 Medically cleared for psychiatric evaluation Reevaluation #3: Was pt. sent in by a medical professional or institution (, [facility], [facility], urgent care, hospital, or penitentiary...) When possible be specific @ -no Did you speak to anyone other than the patient for history (EMS, parent, family, police, friend...)? What history was obtained from this source @ -no Did you review nursing and triage notes (agree or disagree)? Why? @ -agree Are old charts reviewed (outside hosp., previous admission, EMS record, old EKG, old radiological studies, urgent care reports/EKG's, penitentiary records)? Report findings @ -yes Differential Diagnosis (chest pain, altered mental status, abdominal pain women, abdominal pain men, vaginal bleeding, weakness, fever, dyspnea, syncope, headache, dizziness, GI bleed, back pain, seizure, CVA, palpatations, mental health, musculoskeletal)? @ -prior EKG interpreted by me (3pts min.). @ -yes X-rays interpreted by me (1pt min.). @ -yes negative for acute disease CT interpreted by me (1pt min.). @ -no U/S interpreted by me (1pt. min.). @ -no What testing was considered but not performed or refused? (CT, X-rays, U/S, labs)? Why? @ -none What meds were considered but not given or refused? Why? @ -none Did you discuss the management of the patient with other professionals (professionals i.e. , [facility], [facility], lab, RT, psych nurse, social work nurse, deicer finisher, teacher, chief compliance officer, protective services case worker)? Give summary @ -no Was smoking cessation discussed for >3mins.? @ -no Was critical care preformed (if so, how long)? @ -no Were there social determinants of health that impacted care today? How? (Homelessness, low income, unemployed, alcoholism, drug addiction, transportation, low edu. Level, literacy, decrease access to med. care, penitentiary, rehab)? @ -none Was there de-escalation of care discussed even if they declined (Discuss DNR or withdrawal of care, Hospice)? DNR status @ -no What co-morbidities impacted this encounter? (DM, HTN, Smoking, COPD, CAD, Cancer, CVA, ARF, Chemo, Hep., AIDS, mental health diagnosis, sleep apnea, morbid obesity)? @ -none Was patient admitted / discharged? Hospital course, mention meds given and route, prescriptions, significant lab abnormalities, going to OR and other pertinent info. @ - Undiagnosed new problem with uncertain prognosis? @ -no Drug Therapy requiring intensive monitoring for toxicity (Heparin, Nitro, Insulin, Cardizem)? @ -no Were any procedures done? @ -no Diagnosis/symptom? @ - Acute, or Chronic, or Acute on Chronic? @ -Acute Uncomplicated (without systemic symptoms) or Complicated (systemic symptoms)? @ -Complicated Side effects of treatment? @ -no Exacerbation, Progression, or Severe Exacerbation? @ -exacerbation Poses a threat to life or bodily function? How? (Chest pain, [place], [place], pneumonia, PE, COPD, DKA, ARF, appy, cholecystitis, CVA, Diverticulitis, Homicidal, Suicidal, threat to staff... and all critical care pts) @ -yes Reevaluation #4: Differential Mental Health Depression, anxiety, bipolar, psychosis, schizophrenia, borderline personality, situational depression, adjustment disorder, behavioral disorder, brain tumor, malingering, substance abuse, encephalopathy, medication reaction, dementia, hypothyroidism, degenerative neurologic disorder, lupus.... This is not meant to be all-inclusive list Medical Decision Making - Lab Data Lab Results 03/23/25 03/23/25 Range/Units 21:15 21:44 Urine Opiates Screen Not Detected (NotDetected) Ur Oxycodone Screen Not Detected (NotDetected) Urine Methadone Screen Not Detected (NotDetected) Ur Barbiturates Screen Not Detected (NotDetected) U Tricyclic Antidepress Not Detected (NotDetected) Ur Phencyclidine Scrn Not Detected (NotDetected) Ur Amphetamines Screen Not Detected (NotDetected) U Methamphetamines Scrn Not Detected (NotDetected) U Benzodiazepines Scrn Detected H (NotDetected) Urine Cocaine Screen Not Detected (NotDetected) U Marijuana (THC) Screen Detected H (NotDetected) Influenza Type A (PCR) Not Detected (Not Detectd) Influenza Type B (PCR) Not Detected (Not Detectd) RSV (PCR) Not Detected (Not Detectd) SARS-CoV-2 (PCR) Not Detected (Not Detectd) Disposition Clinical Impression: Unspecified psychosis Disposition: HOME SELF-CARE Condition: Fair Instructions (If sedation given, give patient instructions): Mood Disorders (ED) Is patient prescribed a controlled substance at d/c from ED?: No Referrals: Thomas Ramsay MD [Primary Care Provider] - 1-2 days
[2025-03-23] MEDS ORDERED: SODIUM CHLORIDE 0.9% 1,000 ML IV SCH (21:15)
[2025-03-23] MEDS: HYDROmorphone 1 MG/ML 1 ML SYRINGE IVP STA (21:31)
[2025-03-23] MEDS: ONDANSETRON 4 MG/2 ML VIAL IVP STA (21:31)
[2025-03-23] MEDS: SODIUM CHLORIDE 0.9% 1,000 ML IV ONE (21:32)
[2025-03-23 21:55] LABS: Amphetamine Screen,Urine Not Detected (NotDetected); Barbiturate Screen,Urine Not Detected (NotDetected); Benzodiazepines Screen,Urine Detected (NotDetected); Cocaine Screen,Urine Not Detected (NotDetected); Methadone Screen, Urine Not Detected (NotDetected); Opiate Screen,Urine Not Detected (NotDetected); Oxycodone Screen, Urine Not Detected (NotDetected); Phencyclidine Screen,Urine Not Detected (NotDetected); Tricyclic Antidepressant,Urine Not Detected (NotDetected); Urn Cannabinoid Scrn Detected (NotDetected)
--- NOTE | 2025-03-23 22:14 | XR ---
EXAMINATION TYPE: XR chest 1V portable DATE OF EXAM: 03/23/2025 COMPARISON: NONE CLINICAL INDICATION: Female, 34 years old with history of cough; TECHNIQUE: Single frontal view of the chest is obtained. FINDINGS: There is left basilar opacity. Right lung is clear. The cardiac silhouette size is within normal limits. The osseous structures are intact. IMPRESSION: Left basilar acute pneumonic infiltrate. [facility], , 03/23/2025 10:12 PM
[2025-03-23 22:36] LABS: Influenza A Not Detected (Not Detectd); Influenza B Not Detected (Not Detectd); RSV Not Detected (Not Detectd)
== END 2025-03-23 23:33 | disposition home or self-care (01) ==
LOC: EC 19:59
DX: F29 Unspecified psychosis not due to a substance or known physiological condition (principal); F17.200 Nicotine dependence, unspecified, uncomplicated
CPT/HCPCS: 71045; 80306; 87636; 99285